=== PATIENT | female | born 1970 | race Caucasian/White ===

== ENCOUNTER 2018-09-03 01:22 | Inpatient (IN) | payer SELFPAY ==
[~2018-09-03] VITALS: Ht 162.6 cm; Wt 63.5 kg
[2018-09-03 02:02] LABS: BASO % 0 % (0-3); EOS % 0 % (0-3); HEMATOCRIT 41.9 % (36.0-47.0); HEMOGLOBIN 14.2 g/dL (12.0-15.5); LYMPH % 11 % (24-48); MEAN CORPUSCULAR HEMOGLOBIN 33 pg (25-35); MEAN CORPUSCULAR HGB CONC 34 g/dL (31-37); MEAN CORPUSCULAR VOLUME 97 fL (79-100); MONO # 0.6 x10^3/uL (0.0-1.1); MONO % 6 % (0-9); NEUT # 7.6 x10^3uL (1.8-7.7); NEUT % 83 % (31-73); PLATELET COUNT 320 x10^3/uL (140-400); RED BLOOD COUNT 4.33 x10^6/uL (3.50-5.40); RED CELL DISTRIBUTION WIDTH 14.1 % (11.5-14.5); WHITE BLOOD COUNT 9.2 x10^3/uL (4.0-11.0)
[2018-09-03 02:04] LABS: BILIRUBIN,URINE NEGATIVE (NEG); CLARITY,URINE CLEAR; COLOR,URINE YELLOW; NITRITE,URINE NEGATIVE (NEG); PH,URINE 5.5; PROTEIN,URINE >=300 mg/dL (NEG-TRACE); UROBILINOGEN,URINE 0.2 mg/dL (0.2 mg/dL)
[2018-09-03 02:10] LABS: BARBITURATES NEG (NEG); BENZODIAZEPINES NEG (NEG); CANNABINOIDS NEG (NEG); COCAINE NEG (NEG); METHADONE NEG (NEG); OPIATES NEG (NEG); PHENCYCLIDINE NEG (NEG)
[2018-09-03 02:21] LABS: AMPHETAMINE/METHAMPHETAMINE NEG (NEG)
[2018-09-03 02:25] LABS: AMORPHOUS SEDIMENT,UR PRESENT /HPF; BACTERIA,URINE FEW /HPF (0-FEW); HYALINE CASTS, URINE FEW /HPF; RBC,URINE OCC /HPF (0-2); SQUAMOUS EPITHELIAL CELL,UR OCC /LPF; WBC,URINE OCC /HPF (0-4)
[2018-09-03] MEDS ORDERED: FAMOTIDINE 20 MG/2 ML VIAL IVP ONE (02:30)
[2018-09-03] MEDS ORDERED: IV NORMAL SALINE 1000ML BAG 1,000 ML IV ONE (02:30)
[2018-09-03] MEDS ORDERED: cloNIDine HCL 0.1 MG TABLET PO PRN (02:30)
[2018-09-03] MEDS ORDERED: ONDANSETRON PF 4 MG/2 ML VIAL. IV ONE (02:30)
[2018-09-03] MEDS ORDERED: ONDANSETRON PF 4 MG/2 ML VIAL. IV PRN ×2 (02:30→08:45)
[2018-09-03 02:34] LABS: ALBUMIN 4.8 g/dL (3.4-5.0); ALBUMIN/GLOBULIN RATIO 0.9 (1.0-1.7); CALCIUM 9.5 mg/dL (8.5-10.1); CREATININE 2.7 mg/dL (0.6-1.0); GFR 18.7; TOTAL BILIRUBIN 0.5 mg/dL (0.2-1.0); TOTAL PROTEIN 9.9 g/dL (6.4-8.2)
--- NOTE | 2018-09-03 02:48 | PHYS DOC ---
Past Medical History Past Medical History: Other Additional Past Medical Histor: etoh abuse. pt poor historian Past Surgical History: Other Additional Past Surgical Histo: unknown Alcohol Use: Heavy Drug Use: None Adult General Chief Complaint Chief Complaint: WITHDRAWL HPI HPI 48-year-old female who is a known heavy alcohol user presents stating she went on an alcohol binge and has stopped now for some period of time. She has been vomiting now for several hours. She's unable to hold anything down. She states this is alcohol withdrawal. She states she has not had a seizure in the past. She denies being diabetic. His using any other illicit drugs.[] Review of Systems Review of Systems Constitutional: Denies fever or chills [] Eyes: Denies change in visual acuity, redness, or eye pain [] HENT: Denies nasal congestion or sore throat [] Respiratory: Denies cough or shortness of breath [] Cardiovascular: No additional information not addressed in HPI [] GI: Reports nausea vomiting and diarrhea[] : Denies dysuria or hematuria [] Musculoskeletal: Denies back pain or joint pain [] Integument: Denies rash or skin lesions [] Neurologic: Denies seizure[] Endocrine: Denies polyuria or polydipsia [] All other systems were reviewed and found to be within normal limits, except as documented in this note. Current Medications Current Medications Current Medications Medications (Trade) Dose Ordered Sig/Jakob Start Time Stop Time Status Last Admin Dose Admin Clonidine HCl (Catapres) 0.1 mg PRN Q1HR PRN 09/03/18 02:30 Famotidine (Pepcid Vial) 40 mg 1X ONCE 09/03/18 02:30 09/03/18 02:31 DC 09/03/18 02:11 40 MG Lorazepam (Ativan) 2 mg PRN Q1HR PRN 09/03/18 02:30 Ondansetron HCl (Zofran) 4 mg PRN Q8HRS PRN 09/03/18 02:30 09/04/18 02:29 Sodium Chloride 1,000 ml @ 1,000 mls/hr 1X ONCE 09/03/18 02:30 09/03/18 03:29 DC 09/03/18 02:12 1,000 MLS/HR Allergies Allergies Allergies Coded Allergies Type Severity Reaction Last Updated Verified No Known Drug Allergies 09/03/18 No Physical Exam Physical Exam Constitutional: Acutely ill in moderate distress. [] HENT: Normocephalic, atraumatic, bilateral external ears normal, oropharynx moist, no oral exudates, nose normal. [] Eyes: PERRLA, EOMI, conjunctiva normal, no discharge. [] Neck: Normal range of motion, no tenderness, supple, no stridor. [] Cardiovascular: Tachycardic[] Lungs & Thorax: Tachypnea With clear breath sounds bilaterally[] Abdomen: Bowel sounds normal, soft, no tenderness, no masses, no pulsatile masses. [] Skin: Diaphoretic. [] Back: No tenderness, no CVA tenderness. [] Extremities: No tenderness, no cyanosis, no clubbing, ROM intact, no edema. [] Neurologic: Confused, normal motor function, normal sensory function, no focal deficits noted. [] Psychologic: Extremely anxious. [] Current Patient Data Vital Signs Vital Signs Date Time Temp Pulse Resp B/P (MAP) Pulse Ox O2 Delivery O2 Flow Rate FiO2 09/03/18 01:22 97.9 109 20 152/89 (110) 100 Room Air 97.9 Lab Values Laboratory Tests Test 09/03/18 01:30 09/03/18 01:40 09/03/18 01:48 Glucose (Fingerstick) 228 mg/dL (70-99) H White Blood Count 9.2 x10^3/uL (4.0-11.0) Red Blood Count 4.33 x10^6/uL (3.50-5.40) Hemoglobin 14.2 g/dL (12.0-15.5) Hematocrit 41.9 % (36.0-47.0) Mean Corpuscular Volume 97 fL (79-100) Mean Corpuscular Hemoglobin 33 pg (25-35) Mean Corpuscular Hemoglobin Concent 34 g/dL (31-37) Red Cell Distribution Width 14.1 % (11.5-14.5) Platelet Count 320 x10^3/uL (140-400) Neutrophils (%) (Auto) 83 % (31-73) H Lymphocytes (%) (Auto) 11 % (24-48) L Monocytes (%) (Auto) 6 % (0-9) Eosinophils (%) (Auto) 0 % (0-3) Basophils (%) (Auto) 0 % (0-3) Neutrophils # (Auto) 7.6 x10^3uL (1.8-7.7) Lymphocytes # (Auto) 1.0 x10^3/uL (1.0-4.8) Monocytes # (Auto) 0.6 x10^3/uL (0.0-1.1) Eosinophils # (Auto) 0.0 x10^3/uL (0.0-0.7) Basophils # (Auto) 0.0 x10^3/uL (0.0-0.2) Urine Collection Type U cath Urine Color Yellow Urine Clarity Clear Urine pH 5.5 Urine Specific [place] 1.025 Urine Protein >=300 mg/dL (NEG-TRACE) Urine Glucose (UA) Negative mg/dL (NEG) Urine Ketones (Stick) >=80 mg/dL (NEG) Urine Blood Trace (NEG) Urine Nitrite Negative (NEG) Urine Bilirubin Negative (NEG) Urine Urobilinogen Dipstick 0.2 mg/dL (0.2 mg/dL) Urine Leukocyte Esterase Negative (NEG) Urine RBC Occ /HPF (0-2) Urine WBC Occ /HPF (0-4) Urine Squamous Epithelial Cells Occ /LPF Urine Amorphous Sediment Present /HPF Urine Bacteria Few /HPF (0-FEW) Urine Hyaline Casts Few /HPF Urine Mucus Mod /LPF Sodium Level 143 mmol/L (136-145) Potassium Level 3.0 mmol/L (3.5-5.1) L Chloride Level 97 mmol/L (98-107) L Carbon Dioxide Level 16 mmol/L (21-32) L Anion Gap 30 (6-14) H Blood Urea Nitrogen 13 mg/dL (7-20) Creatinine 2.7 mg/dL (0.6-1.0) H Estimated GFR (Cockcroft-Gault) 18.7 BUN/Creatinine Ratio 5 (6-20) L Glucose Level 252 mg/dL (70-99) H Calcium Level 9.5 mg/dL (8.5-10.1) Total Bilirubin 0.5 mg/dL (0.2-1.0) Aspartate Amino Transferase (AST) 67 U/L (15-37) H Alanine Aminotransferase (ALT) 81 U/L (14-59) H Alkaline Phosphatase 103 U/L (46-116) Total Protein 9.9 g/dL (6.4-8.2) H Albumin 4.8 g/dL (3.4-5.0) Albumin/Globulin Ratio 0.9 (1.0-1.7) L Lipase 94 U/L (73-393) Urine Opiates Screen Neg (NEG) Urine Methadone Screen Neg (NEG) Urine Barbiturates Neg (NEG) Urine Phencyclidine Screen Neg (NEG) Urine Amphetamine/Methamphetamine Neg (NEG) Urine Benzodiazepines Screen Neg (NEG) Urine Cocaine Screen Neg (NEG) Urine Cannabinoids Screen Neg (NEG) Ethyl Alcohol Level < 10 mg/dL (0-10) Urine Ethyl Alcohol Neg (NEG) POC Urine HCG, Qualitative Hcg negative (Negative) Laboratory Tests 09/03/18 01:40 Laboratory Tests 09/03/18 01:40 EKG EKG [] Radiology/Procedures Radiology/Procedures [] Course & Med Decision Making Course & Med Decision Making Pertinent Labs and Imaging studies reviewed. (See chart for details) [ED course: Evaluation reveals a 48-year-old female that is confused in DTs. She was given a banana bag 1 L IV as well as normal saline 1 L IV and 2 mg of Ativan IV with this did help calm her down. She was also given Zofran for nausea and vomiting. Given the extreme nature of her withdrawal she will need to be hospitalized and watched closely as she recovers from her alcohol withdrawal. Patient also has renal failure and a metabolic acidosis I doubt that this acidosis is related to diabetes certainly could be related to the amount of alcohol that she drank her type of alcohol. Her blood glucose was 250. I will start her on a sliding scale upstairs. I believe that the acidosis were fluid replacement. Again, laboratory studies will be drawn again in a couple of hours.] CRITICAL CARE: Time spent was 35 minutes. This includes medical management, evaluation, reevaluation, discussion with consultants and family. Critical Care does NOT include time spent on separately billed procedures. Dragon Disclaimer Dragon Disclaimer This electronic medical record was generated, in whole or in part, using a voice recognition dictation system. Departure Departure Impression: Primary Impression: DTs (delirium tremens) Additional Impressions: Renal failure Metabolic acidosis Disposition: 09 ADMITTED INPATIENT Admitting Physician: Other (Farela) Condition: GUARDED Referrals: NO PCP (PCP) Problem Qualifiers Additional Impressions: Renal failure Renal failure chronicity: acute Acute renal failure type: unspecified Qualified Codes: N17.9 - Acute kidney failure, unspecified HEDY MANZANO DO Sep 03, 2018 02:48
[2018-09-03] MEDS ORDERED: MULTIVIT INFUSN,ADULT 4,VIT K 10 ML, THIAMINE INJ 100 MG, FOLIC ACID INJ 1 MG in IV NOR... IV ONE (03:00)
[2018-09-03] MEDS ORDERED: DEXTROSE 50% 25 GM / 50ML DISP.SYRIN. IV PRN ×2 (03:45→08:45)
--- NOTE | 2018-09-03 04:00 | NUR ---
ADMISSION NOTE: Patient arrived to room 530 at approximately 0345 accompanied by ED staff. Patient able to transfer self from rney to bed. Removed medications, two lighters, and a tin of tobacco pouches from patient's purse, placed in patient's med bin. Patient complains of thirst, water pitcher provided. Admission questionnaire performed, patient does not remember what strength of meds she takes. Remembers Prozac and Seroquel but states she takes more. Cannot remember what [place] pharmacy location she uses. Will pass along to day RN.
[2018-09-03] MEDS: IV NORMAL SALINE 1000ML BAG 1,000 ML IV SCH ×3 (05:00→20:49)
[2018-09-03 08:00] VITALS: BP 110/66
[2018-09-03] MEDS ORDERED: INSULIN LISPRO 300 UNITS/3 ML INSULN.PEN. SQ SCH (08:00)
[2018-09-03] MEDS ORDERED: ACETAMINOPHEN/CODEINE 300/30MG TABLET. PO PRN (08:45)
[2018-09-03] MEDS ORDERED: chlordiazePOXIDE HCL 25 MG CAPSULE PO PRN (08:45)
[2018-09-03] MEDS ORDERED: ACETAMINOPHEN 500 MG TABLET PO PRN (08:45)
[2018-09-03] MEDS ORDERED: POTASSIUM CHLORIDE 20 MEQ TABLET.ER. PO ONE (09:00)
[2018-09-03] MEDS: THIAMINE 100 MG TABLET. PO SCH (09:17)
[2018-09-03] MEDS: MULTIVITAMIN with MINERAL TABLET. PO SCH (09:17)
[2018-09-03] MEDS: FOLIC ACID 1 MG TABLET. PO SCH (09:17)
[2018-09-03 11:00] VITALS: BP 104/54
[2018-09-03] MEDS: INSULIN LISPRO 300 UNITS/3 ML INSULN.PEN. SQ SCH ×2 (11:22→17:00)
--- NOTE | 2018-09-03 12:00 | PDOC1 ---
History and Physical Date of Admission Date of Admission DATE: 09/03/18 TIME: 11:55 Identification/Chief Complaint Chief Complaint Alcohol intoxication Source Source: Caregiver, Chart review, Patient History of Present Illness History of Present Illness 48-year-old white female, not the best historian as either alcohol intoxicated or trying to withdraw or drowsy from Librium etc. 48-year-old female who is a known heavy alcohol user presents stating she went on an alcohol binge and has stopped now for some period of time. She has been vomiting now for several hours. She's unable to hold anything down. She states this is alcohol withdrawal. She states she has not had a seizure in the past. She denies being diabetic. His using any other illicit drugs.[] She has severe elyte abnormalities namely low potassium 3.0 with elevated anion gap at 30 and a low bicarbonate 16 with hypochloremia 117. AST elevated 67, ALT likewise elevated. Patient still nauseated no vomiting but less interested in food yet. Not ready to DC, to continue alcohol detox here in the hospital. We'll consult social work for AAA referral etoh levels less than 10 Past Medical History Endocrine: Diabetes Past Surgical History Past Surgical History: No pertinent history Family History Family History: Family History Unknown Social History Smoke: No ALCOHOL: heavy Drugs: None Current Problem List Problem List Problems Medical Problems: (1) DTs (delirium tremens) Status: Acute (2) Metabolic acidosis Status: Acute (3) Renal failure Status: Acute Current Medications Current Medications Current Medications Multivitamins 10 ml/Thiamine HCl 100 mg/Folic Acid 1 mg/Sodium Chloride 1,011.2 ml @ 1,000.088 mls/hr 1X ONCE IV Last administered on 09/03/18at 02:25; Start 09/03/18 at 03:00; Stop 09/03/18 at 04:00; Status DC Lorazepam (Ativan) 2 mg 1X ONCE IV Last administered on 09/03/18at 02:11; Start 09/03/18 at 02:30; Stop 09/03/18 at 02:31; Status DC Sodium Chloride 1,000 ml @ 1,000 mls/hr 1X ONCE IV Last administered on at 02:12; Start 09/03/18 at 02:30; Stop 09/03/18 at 03:29; Status DC Famotidine (Pepcid Vial) 40 mg 1X ONCE IVP Last administered on 09/03/18at 02: 11; Start 09/03/18 at 02:30; Stop 09/03/18 at 02:31; Status DC Ondansetron HCl (Zofran) 8 mg 1X ONCE IV Last administered on 09/03/18at 02:11 ; Start 09/03/18 at 02:30; Stop 09/03/18 at 02:31; Status DC Ondansetron HCl (Zofran) 4 mg PRN Q8HRS PRN IV NAUSEA/VOMITING 1ST CHOICE; Start 09/03/18 at 02:30; Stop 09/03/18 at 08:34; Status DC Sodium Chloride 1,000 ml @ 125 mls/hr Q8H IV Last administered on 09/03/18at 11 :28; Start 09/03/18 at 03:00; Stop 09/04/18 at 02:59 Lorazepam (Ativan) 2 mg PRN Q1HR PRN IV For CIWA 8-14 Last administered on 09/03at 09:17; Start 09/03/18 at 02:30 Clonidine HCl (Catapres) 0.1 mg PRN Q1HR PRN PO SBP > 180 or DBP > 100, MRX3; Start 09/03/18 at 02:30 Insulin Human Lispro (HumaLOG) 0-7 UNITS TIDWMEALS SQ ; Start 09/03/18 at 08:00 ; Stop 09/03/18 at 08:34; Status DC Dextrose (Dextrose 50%-Water Syringe) 12.5 gm PRN Q15MIN PRN IV SEE COMMENTS; Start 09/03/18 at 03:45 Ondansetron HCl (Zofran) 4 mg PRN Q6HRS PRN IV NAUSEA/VOMITING 1ST CHOICE; Start 09/03/18 at 08:45 Acetaminophen (Tylenol) 500 mg PRN Q6HRS PRN PO MILD PAIN / TEMP; Start at 08:45 Acetaminophen/ Codeine Phosphate (Tylenol #3) 1 tab PRN Q6HRS PRN PO MODERATE PAIN; Start 09/03/18 at 08:45 Potassium Chloride (Klor-Con) 40 meq 1X ONCE PO Last administered on at 09:17; Start 09/03/18 at 09:00; Stop 09/03/18 at 09:01; Status DC Potassium Chloride (Klor-Con) 40 meq DAILYWBKFT PO ; Start 09/04/18 at 08:00 Insulin Human Lispro (HumaLOG) 0-9 UNITS TIDWMEALS SQ ; Start 09/03/18 at 12:00 Dextrose (Dextrose 50%-Water Syringe) 12.5 gm PRN Q15MIN PRN IV SEE COMMENTS; Start 09/03/18 at 08:45; Status UNV Multivitamins (Thera M Plus) 1 tab DAILY PO Last administered on 09/03/18at 09: 17; Start 09/03/18 at 09:00 Thiamine Mononitrate (Vitamin B-1) 100 mg DAILY PO Last administered on at 09:17; Start 09/03/18 at 09:00 Folic Acid (Folic Acid) 1 mg DAILY PO Last administered on 09/03/18at 09:17; Start 09/03/18 at 09:00 Chlordiazepoxide (Librium) 25 mg PRN Q6HRS PRN PO ANXIETY / AGITATION; Start at 08:45 Allergies Allergies: Coded Allergies: No Known Drug Allergies (Unverified , 09/03/18) ROS Review of System limited, alcohol detox/alcohol withdrawal sxs Physical Exam General: No acute distress, Other (sleepy) HEENT: Atraumatic, PERRLA, EOMI Lungs: Clear to auscultation, Normal air movement Heart: S1S2, RRR, no thrills, no gallops, no murmurs Cardiovascular: S1 Breasts: Normal, Rt breast nml w/o mass, Lt breast nml w/o mass, Nipples normal Abdomen: Normal bowel sounds, Soft, No tenderness, No hepatosplenomegaly, No masses Rectal Exam: not examined PELVIC: Nml ext genitalia Extremities: No clubbing, No cyanosis, No edema, Normal pulses, No tenderness/ swelling Skin: No rashes, No breakdown, No significant lesion Neuro: Normal gait, Normal speech, Strength at 5/5 X4 ext, Normal tone, Sensation intact, Cranial nerves 3-12 NL, Reflexes 2+ Psych/Mental Status: Mental status NL Vitals Vitals Vital Signs Date Time Temp Pulse Resp B/P (MAP) Pulse Ox O2 Delivery O2 Flow Rate FiO2 09/03/18 11:00 98.2 105 17 104/54 (71) 100 98.2 09/03/18 08:00 Room Air Labs Labs Laboratory Tests Test 09/03/18 01:30 09/03/18 01:40 09/03/18 01:48 09/03/18 07:13 Glucose (Fingerstick) 228 mg/dL (70-99) 122 mg/dL (70-99) White Blood Count 9.2 x10^3/uL (4.0-11.0) Red Blood Count 4.33 x10^6/uL (3.50-5.40) Hemoglobin 14.2 g/dL (12.0-15.5) Hematocrit 41.9 % (36.0-47.0) Mean Corpuscular Volume 97 fL (79-100) Mean Corpuscular Hemoglobin 33 pg (25-35) Mean Corpuscular Hemoglobin Concent 34 g/dL (31-37) Red Cell Distribution Width 14.1 % (11.5-14.5) Platelet Count 320 x10^3/uL (140-400) Neutrophils (%) (Auto) 83 % (31-73) Lymphocytes (%) (Auto) 11 % (24-48) Monocytes (%) (Auto) 6 % (0-9) Eosinophils (%) (Auto) 0 % (0-3) Basophils (%) (Auto) 0 % (0-3) Neutrophils # (Auto) 7.6 x10^3uL (1.8-7.7) Lymphocytes # (Auto) 1.0 x10^3/uL (1.0-4.8) Monocytes # (Auto) 0.6 x10^3/uL (0.0-1.1) Eosinophils # (Auto) 0.0 x10^3/uL (0.0-0.7) Basophils # (Auto) 0.0 x10^3/uL (0.0-0.2) Urine Collection Type U cath Urine Color Yellow Urine Clarity Clear Urine pH 5.5 Urine Specific [place] 1.025 Urine Protein >=300 mg/dL (NEG-TRACE) Urine Glucose (UA) Negative mg/dL (NEG) Urine Ketones (Stick) >=80 mg/dL (NEG) Urine Blood Trace (NEG) Urine Nitrite Negative (NEG) Urine Bilirubin Negative (NEG) Urine Urobilinogen Dipstick 0.2 mg/dL (0.2 mg/dL) Urine Leukocyte Esterase Negative (NEG) Urine RBC Occ /HPF (0-2) Urine WBC Occ /HPF (0-4) Urine Squamous Epithelial Cells Occ /LPF Urine Amorphous Sediment Present /HPF Urine Bacteria Few /HPF (0-FEW) Urine Hyaline Casts Few /HPF Urine Mucus Mod /LPF Sodium Level 143 mmol/L (136-145) Potassium Level 3.0 mmol/L (3.5-5.1) Chloride Level 97 mmol/L (98-107) Carbon Dioxide Level 16 mmol/L (21-32) Anion Gap 30 (6-14) Blood Urea Nitrogen 13 mg/dL (7-20) Creatinine 2.7 mg/dL (0.6-1.0) Estimated GFR (Cockcroft-Gault) 18.7 BUN/Creatinine Ratio 5 (6-20) Glucose Level 252 mg/dL (70-99) Calcium Level 9.5 mg/dL (8.5-10.1) Magnesium Level 2.2 mg/dL (1.8-2.4) Total Bilirubin 0.5 mg/dL (0.2-1.0) Aspartate Amino Transf (AST/SGOT) 67 U/L (15-37) Alanine Aminotransferase (ALT/SGPT) 81 U/L (14-59) Alkaline Phosphatase 103 U/L (46-116) Total Protein 9.9 g/dL (6.4-8.2) Albumin 4.8 g/dL (3.4-5.0) Albumin/Globulin Ratio 0.9 (1.0-1.7) Lipase 94 U/L (73-393) Urine Opiates Screen Neg (NEG) Urine Methadone Screen Neg (NEG) Urine Barbiturates Neg (NEG) Urine Phencyclidine Screen Neg (NEG) Urine Amphetamine/Methamphetamine Neg (NEG) Urine Benzodiazepines Screen Neg (NEG) Urine Cocaine Screen Neg (NEG) Urine Cannabinoids Screen Neg (NEG) Ethyl Alcohol Level < 10 mg/dL (0-10) Urine Ethyl Alcohol Neg (NEG) Bedside Urine HCG, Qualitative Hcg negative (Negative) Test 09/03/18 11:12 Glucose (Fingerstick) 110 mg/dL (70-99) Laboratory Tests Test 09/03/18 01:30 09/03/18 01:40 09/03/18 01:48 09/03/18 07:13 Glucose (Fingerstick) 228 mg/dL (70-99) 122 mg/dL (70-99) White Blood Count 9.2 x10^3/uL (4.0-11.0) Red Blood Count 4.33 x10^6/uL (3.50-5.40) Hemoglobin 14.2 g/dL (12.0-15.5) Hematocrit 41.9 % (36.0-47.0) Mean Corpuscular Volume 97 fL (79-100) Mean Corpuscular Hemoglobin 33 pg (25-35) Mean Corpuscular Hemoglobin Concent 34 g/dL (31-37) Red Cell Distribution Width 14.1 % (11.5-14.5) Platelet Count 320 x10^3/uL (140-400) Neutrophils (%) (Auto) 83 % (31-73) Lymphocytes (%) (Auto) 11 % (24-48) Monocytes (%) (Auto) 6 % (0-9) Eosinophils (%) (Auto) 0 % (0-3) Basophils (%) (Auto) 0 % (0-3) Neutrophils # (Auto) 7.6 x10^3uL (1.8-7.7) Lymphocytes # (Auto) 1.0 x10^3/uL (1.0-4.8) Monocytes # (Auto) 0.6 x10^3/uL (0.0-1.1) Eosinophils # (Auto) 0.0 x10^3/uL (0.0-0.7) Basophils # (Auto) 0.0 x10^3/uL (0.0-0.2) Urine Collection Type U cath Urine Color Yellow Urine Clarity Clear Urine pH 5.5 Urine Specific [place] 1.025 Urine Protein >=300 mg/dL (NEG-TRACE) Urine Glucose (UA) Negative mg/dL (NEG) Urine Ketones (Stick) >=80 mg/dL (NEG) Urine Blood Trace (NEG) Urine Nitrite Negative (NEG) Urine Bilirubin Negative (NEG) Urine Urobilinogen Dipstick 0.2 mg/dL (0.2 mg/dL) Urine Leukocyte Esterase Negative (NEG) Urine RBC Occ /HPF (0-2) Urine WBC Occ /HPF (0-4) Urine Squamous Epithelial Cells Occ /LPF Urine Amorphous Sediment Present /HPF Urine Bacteria Few /HPF (0-FEW) Urine Hyaline Casts Few /HPF Urine Mucus Mod /LPF Sodium Level 143 mmol/L (136-145) Potassium Level 3.0 mmol/L (3.5-5.1) Chloride Level 97 mmol/L (98-107) Carbon Dioxide Level 16 mmol/L (21-32) Anion Gap 30 (6-14) Blood Urea Nitrogen 13 mg/dL (7-20) Creatinine 2.7 mg/dL (0.6-1.0) Estimated GFR (Cockcroft-Gault) 18.7 BUN/Creatinine Ratio 5 (6-20) Glucose Level 252 mg/dL (70-99) Calcium Level 9.5 mg/dL (8.5-10.1) Magnesium Level 2.2 mg/dL (1.8-2.4) Total Bilirubin 0.5 mg/dL (0.2-1.0) Aspartate Amino Transf (AST/SGOT) 67 U/L (15-37) Alanine Aminotransferase (ALT/SGPT) 81 U/L (14-59) Alkaline Phosphatase 103 U/L (46-116) Total Protein 9.9 g/dL (6.4-8.2) Albumin 4.8 g/dL (3.4-5.0) Albumin/Globulin Ratio 0.9 (1.0-1.7) Lipase 94 U/L (73-393) Urine Opiates Screen Neg (NEG) Urine Methadone Screen Neg (NEG) Urine Barbiturates Neg (NEG) Urine Phencyclidine Screen Neg (NEG) Urine Amphetamine/Methamphetamine Neg (NEG) Urine Benzodiazepines Screen Neg (NEG) Urine Cocaine Screen Neg (NEG) Urine Cannabinoids Screen Neg (NEG) Ethyl Alcohol Level < 10 mg/dL (0-10) Urine Ethyl Alcohol Neg (NEG) Bedside Urine HCG, Qualitative Hcg negative (Negative) Test 09/03/18 11:12 Glucose (Fingerstick) 110 mg/dL (70-99) VTE Prophylaxis Ordered VTE Prophylaxis Devices: Yes VTE Pharmacological Prophylaxi: Yes Assessment/Plan Assessment/Plan Alcohol withdrawal Hypokalemia Elevated gap anion acidosis secondary to alcoholism Hypokalemia Elevated LFTs and a drinker PLAN: CIWA Watch out for alcohol withdrawal seizures Supportive meds Replace potassium Sliding-scale insulin Fluid hydration and attempt to correct the acidosis-recheck BMP with focus on anion gap, potassium tomorrow HIRA CABALLERO MD Sep 03, 2018 12:00
[2018-09-03 15:00] VITALS: BP 110/63
[2018-09-03 19:00] VITALS: BP 99/60
[2018-09-03 23:00] VITALS: BP 101/64
[2018-09-04 03:00] VITALS: BP 108/70
[2018-09-04 07:00] VITALS: BP 112/73
[2018-09-04] MEDS: INSULIN LISPRO 300 UNITS/3 ML INSULN.PEN. SQ SCH ×3 (08:00→17:00)
[2018-09-04 09:08] LABS: CREATININE 1.2 mg/dL (0.6-1.0); GFR 47.7
[2018-09-04 09:17] LABS: POTASSIUM 2.8 mmol/L (3.5-5.1)
[2018-09-04] MEDS ORDERED: POTASSIUM CHLORIDE 20 MEQ TABLET.ER. PO ONE ×2 (09:30)
[2018-09-04] MEDS: MULTIVITAMIN with MINERAL TABLET. PO SCH (10:05)
[2018-09-04] MEDS: POTASSIUM CHLORIDE 20 MEQ TABLET.ER. PO SCH (10:05)
[2018-09-04] MEDS: THIAMINE 100 MG TABLET. PO SCH (10:05)
[2018-09-04] MEDS: FOLIC ACID 1 MG TABLET. PO SCH (10:06)
[2018-09-04 11:00] VITALS: BP 126/74
--- NOTE | 2018-09-04 11:26 | PDOC ---
PROGRESS NOTES Chief Complaint Chief Complaint Alcohol withdrawal Hypokalemia Elevated gap anion acidosis secondary to alcoholism Hypokalemia Elevated LFTs and a drinker History of Present Illness History of Present Illness Called by RN for critical potassium 2.8 today Still not dc ready, gait very unsteady or at least RN has not seen her ambulate about yet So-so by mouth intake STill sleepy PLAN: Back down on CIWA protocol Add some PTOT Replace potassium 601 and recheck again later or tomorrow Cannot DC yet today pending above Vitals Vitals Vital Signs Date Time Temp Pulse Resp B/P (MAP) Pulse Ox O2 Delivery O2 Flow Rate FiO2 09/04/18 07:00 98.7 88 16 112/73 (86) 95 Room Air 98.7 Physical Exam General: No acute distress, Other (sleepy) Heart: Regular rate, Normal S1, Normal S2 Lungs: Clear Abdomen: Normal bowel sounds, Soft, No tenderness, No hepatosplenomegaly, No masses Extremities: No clubbing, No cyanosis, No edema, Normal pulses, No tenderness/ swelling Skin: No rashes, No breakdown, No significant lesion Labs LABS Laboratory Tests Test 09/03/18 16:33 09/03/18 20:38 09/04/18 07:30 09/04/18 08:08 Glucose (Fingerstick) 130 mg/dL (70-99) 179 mg/dL (70-99) 109 mg/dL (70-99) Sodium Level 140 mmol/L (136-145) Potassium Level 2.8 mmol/L (3.5-5.1) Chloride Level 105 mmol/L (98-107) Carbon Dioxide Level 27 mmol/L (21-32) Anion Gap 8 (6-14) Blood Urea Nitrogen 2 mg/dL (7-20) Creatinine 1.2 mg/dL (0.6-1.0) Estimated GFR (Cockcroft-Gault) 47.7 Glucose Level 99 mg/dL (70-99) Calcium Level 8.0 mg/dL (8.5-10.1) Review of Systems Review of Systems Sleepy hence limited ROS Assessment and Plan Assessmemt and Plan Problems Medical Problems: (1) DTs (delirium tremens) Status: Acute (2) Metabolic acidosis Status: Acute (3) Renal failure Status: Acute Comment Review of Relevant I have reviewed the following items siva (where applicable) has been applied. Labs Laboratory Tests Test 09/03/18 01:30 09/03/18 01:40 09/03/18 01:48 09/03/18 07:13 Glucose (Fingerstick) 228 mg/dL (70-99) 122 mg/dL (70-99) White Blood Count 9.2 x10^3/uL (4.0-11.0) Red Blood Count 4.33 x10^6/uL (3.50-5.40) Hemoglobin 14.2 g/dL (12.0-15.5) Hematocrit 41.9 % (36.0-47.0) Mean Corpuscular Volume 97 fL (79-100) Mean Corpuscular Hemoglobin 33 pg (25-35) Mean Corpuscular Hemoglobin Concent 34 g/dL (31-37) Red Cell Distribution Width 14.1 % (11.5-14.5) Platelet Count 320 x10^3/uL (140-400) Neutrophils (%) (Auto) 83 % (31-73) Lymphocytes (%) (Auto) 11 % (24-48) Monocytes (%) (Auto) 6 % (0-9) Eosinophils (%) (Auto) 0 % (0-3) Basophils (%) (Auto) 0 % (0-3) Neutrophils # (Auto) 7.6 x10^3uL (1.8-7.7) Lymphocytes # (Auto) 1.0 x10^3/uL (1.0-4.8) Monocytes # (Auto) 0.6 x10^3/uL (0.0-1.1) Eosinophils # (Auto) 0.0 x10^3/uL (0.0-0.7) Basophils # (Auto) 0.0 x10^3/uL (0.0-0.2) Urine Collection Type U cath Urine Color Yellow Urine Clarity Clear Urine pH 5.5 Urine Specific [place] 1.025 Urine Protein >=300 mg/dL (NEG-TRACE) Urine Glucose (UA) Negative mg/dL (NEG) Urine Ketones (Stick) >=80 mg/dL (NEG) Urine Blood Trace (NEG) Urine Nitrite Negative (NEG) Urine Bilirubin Negative (NEG) Urine Urobilinogen Dipstick 0.2 mg/dL (0.2 mg/dL) Urine Leukocyte Esterase Negative (NEG) Urine RBC Occ /HPF (0-2) Urine WBC Occ /HPF (0-4) Urine Squamous Epithelial Cells Occ /LPF Urine Amorphous Sediment Present /HPF Urine Bacteria Few /HPF (0-FEW) Urine Hyaline Casts Few /HPF Urine Mucus Mod /LPF Sodium Level 143 mmol/L (136-145) Potassium Level 3.0 mmol/L (3.5-5.1) Chloride Level 97 mmol/L (98-107) Carbon Dioxide Level 16 mmol/L (21-32) Anion Gap 30 (6-14) Blood Urea Nitrogen 13 mg/dL (7-20) Creatinine 2.7 mg/dL (0.6-1.0) Estimated GFR (Cockcroft-Gault) 18.7 BUN/Creatinine Ratio 5 (6-20) Glucose Level 252 mg/dL (70-99) Calcium Level 9.5 mg/dL (8.5-10.1) Magnesium Level 2.2 mg/dL (1.8-2.4) Total Bilirubin 0.5 mg/dL (0.2-1.0) Aspartate Amino Transf (AST/SGOT) 67 U/L (15-37) Alanine Aminotransferase (ALT/SGPT) 81 U/L (14-59) Alkaline Phosphatase 103 U/L (46-116) Total Protein 9.9 g/dL (6.4-8.2) Albumin 4.8 g/dL (3.4-5.0) Albumin/Globulin Ratio 0.9 (1.0-1.7) Lipase 94 U/L (73-393) Urine Opiates Screen Neg (NEG) Urine Methadone Screen Neg (NEG) Urine Barbiturates Neg (NEG) Urine Phencyclidine Screen Neg (NEG) Urine Amphetamine/Methamphetamine Neg (NEG) Urine Benzodiazepines Screen Neg (NEG) Urine Cocaine Screen Neg (NEG) Urine Cannabinoids Screen Neg (NEG) Ethyl Alcohol Level < 10 mg/dL (0-10) Urine Ethyl Alcohol Neg (NEG) Bedside Urine HCG, Qualitative Hcg negative (Negative) Test 09/03/18 11:12 09/03/18 16:33 09/03/18 20:38 09/04/18 07:30 Glucose (Fingerstick) 110 mg/dL (70-99) 130 mg/dL (70-99) 179 mg/dL (70-99) 109 mg/dL (70-99) Test 09/04/18 08:08 Sodium Level 140 mmol/L (136-145) Potassium Level 2.8 mmol/L (3.5-5.1) Chloride Level 105 mmol/L (98-107) Carbon Dioxide Level 27 mmol/L (21-32) Anion Gap 8 (6-14) Blood Urea Nitrogen 2 mg/dL (7-20) Creatinine 1.2 mg/dL (0.6-1.0) Estimated GFR (Cockcroft-Gault) 47.7 Glucose Level 99 mg/dL (70-99) Calcium Level 8.0 mg/dL (8.5-10.1) Laboratory Tests Test 09/03/18 16:33 09/03/18 20:38 09/04/18 07:30 09/04/18 08:08 Glucose (Fingerstick) 130 mg/dL (70-99) 179 mg/dL (70-99) 109 mg/dL (70-99) Sodium Level 140 mmol/L (136-145) Potassium Level 2.8 mmol/L (3.5-5.1) Chloride Level 105 mmol/L (98-107) Carbon Dioxide Level 27 mmol/L (21-32) Anion Gap 8 (6-14) Blood Urea Nitrogen 2 mg/dL (7-20) Creatinine 1.2 mg/dL (0.6-1.0) Estimated GFR (Cockcroft-Gault) 47.7 Glucose Level 99 mg/dL (70-99) Calcium Level 8.0 mg/dL (8.5-10.1) Medications Current Medications Multivitamins 10 ml/Thiamine HCl 100 mg/Folic Acid 1 mg/Sodium Chloride 1,011.2 ml @ 1,000.088 mls/hr 1X ONCE IV Last administered on 09/03/18at 02:25; Start 09/03/18 at 03:00; Stop 09/03/18 at 04:00; Status DC Lorazepam (Ativan) 2 mg 1X ONCE IV Last administered on 09/03/18at 02:11; Start 09/03/18 at 02:30; Stop 09/03/18 at 02:31; Status DC Sodium Chloride 1,000 ml @ 1,000 mls/hr 1X ONCE IV Last administered on at 02:12; Start 09/03/18 at 02:30; Stop 09/03/18 at 03:29; Status DC Famotidine (Pepcid Vial) 40 mg 1X ONCE IVP Last administered on 09/03/18at 02: 11; Start 09/03/18 at 02:30; Stop 09/03/18 at 02:31; Status DC Ondansetron HCl (Zofran) 8 mg 1X ONCE IV Last administered on 09/03/18at 02:11 ; Start 09/03/18 at 02:30; Stop 09/03/18 at 02:31; Status DC Ondansetron HCl (Zofran) 4 mg PRN Q8HRS PRN IV NAUSEA/VOMITING 1ST CHOICE; Start 09/03/18 at 02:30; Stop 09/03/18 at 08:34; Status DC Sodium Chloride 1,000 ml @ 125 mls/hr Q8H IV Last administered on 09/03/18at 20 :49; Start 09/03/18 at 03:00; Stop 09/04/18 at 02:59; Status DC Lorazepam (Ativan) 2 mg PRN Q1HR PRN IV For CIWA 8-14 Last administered on 09/04at 08:30; Start 09/03/18 at 02:30 Clonidine HCl (Catapres) 0.1 mg PRN Q1HR PRN PO SBP > 180 or DBP > 100, MRX3; Start 09/03/18 at 02:30 Insulin Human Lispro (HumaLOG) 0-7 UNITS TIDWMEALS SQ ; Start 09/03/18 at 08:00 ; Stop 09/03/18 at 08:34; Status DC Dextrose (Dextrose 50%-Water Syringe) 12.5 gm PRN Q15MIN PRN IV SEE COMMENTS; Start 09/03/18 at 03:45 Ondansetron HCl (Zofran) 4 mg PRN Q6HRS PRN IV NAUSEA/VOMITING 1ST CHOICE Last administered on 09/04/18at 11:19; Start 09/03/18 at 08:45 Acetaminophen (Tylenol) 500 mg PRN Q6HRS PRN PO MILD PAIN / TEMP; Start at 08:45 Acetaminophen/ Codeine Phosphate (Tylenol #3) 1 tab PRN Q6HRS PRN PO MODERATE PAIN; Start 09/03/18 at 08:45 Potassium Chloride (Klor-Con) 40 meq 1X ONCE PO Last administered on 09:17; Start 09/03/18 at 09:00; Stop 09/03/18 at 09:01; Status DC Potassium Chloride (Klor-Con) 40 meq DAILYWBKFT PO Last administered on at 10:05; Start 09/04/18 at 08:00 Insulin Human Lispro (HumaLOG) 0-9 UNITS TIDWMEALS SQ ; Start 09/03/18 at 12:00 Dextrose (Dextrose 50%-Water Syringe) 12.5 gm PRN Q15MIN PRN IV SEE COMMENTS; Start 09/03/18 at 08:45; Status UNV Multivitamins (Thera M Plus) 1 tab DAILY PO Last administered on 09/04/18at 10: 05; Start 09/03/18 at 09:00 Thiamine Mononitrate (Vitamin B-1) 100 mg DAILY PO Last administered on at 10:05; Start 09/03/18 at 09:00 Folic Acid (Folic Acid) 1 mg DAILY PO Last administered on 09/04/18at 10:06; Start 09/03/18 at 09:00 Chlordiazepoxide (Librium) 25 mg PRN Q6HRS PRN PO ANXIETY / AGITATION; Start at 08:45 Potassium Chloride (Klor-Con) 20 meq 1X ONCE PO Last administered on at 10:05; Start 09/04/18 at 09:30; Stop 09/04/18 at 09:35; Status DC Potassium Chloride (Klor-Con) 40 meq 1X ONCE PO Last administered on at 10:07; Start 09/04/18 at 09:30; Stop 09/04/18 at 09:35; Status DC Vitals/I & O Vital Sign - Last 24 Hours 09/03/18 09/03/18 09/03/18 09/03/18 15:00 19:00 20:00 23:00 Temp 98.1 98.3 98.3 98.1 98.3 98.3 Pulse 90 89 92 Resp 18 18 18 B/P (MAP) 110/63 (79) 99/60 (73) 101/64 (76) Pulse Ox 98 93 95 O2 Delivery Room Air Room Air Room Air 09/04/18 09/04/18 03:00 07:00 Temp 98.3 98.7 98.3 98.7 Pulse 80 88 Resp 18 16 B/P (MAP) 108/70 (83) 112/73 (86) Pulse Ox 96 95 O2 Delivery Room Air Room Air Intake and Output 09/03/18 09/03/18 09/04/18 15:00 23:00 07:00 Intake Total 200 ml 180 ml Balance 200 ml 180 ml HIRA CABALLERO MD Sep 04, 2018 11:26
[2018-09-04 15:00] VITALS: BP 123/76
[2018-09-04 19:00] VITALS: BP 122/72
[2018-09-04] MEDS ORDERED: ZOLPIDEM 5 MG TABLET. PO PRN (21:30)
[2018-09-04] MEDS ORDERED: NICOTINE 21MG PATCH. TD PRN (21:30)
[2018-09-04 23:00] VITALS: BP 125/79
[2018-09-05 02:50] VITALS: BP 118/75
[2018-09-05 07:00] VITALS: BP 125/85
[2018-09-05] MEDS: INSULIN LISPRO 300 UNITS/3 ML INSULN.PEN. SQ SCH ×2 (08:00→12:00)
[2018-09-05] MEDS: POTASSIUM CHLORIDE 20 MEQ TABLET.ER. PO SCH (08:00)
[2018-09-05] MEDS: MULTIVITAMIN with MINERAL TABLET. PO SCH (09:00)
[2018-09-05] MEDS: THIAMINE 100 MG TABLET. PO SCH (09:00)
[2018-09-05] MEDS: FOLIC ACID 1 MG TABLET. PO SCH (09:00)
--- NOTE | 2018-09-05 10:54 | PDOC3 ---
Discharge Summary Visit Information Date of Admission: Sep 03, 2018 Date of Discharge: Sep 05, 2018 Admitting Diagnosis Comment: Alcohol withdrawal Hypokalemia Elevated gap anion acidosis secondary to alcoholism Hypokalemia Elevated LFTs and a drinker Final Diagnosis Problems Medical Problems: (1) DTs (delirium tremens) Status: Acute (2) Metabolic acidosis Status: Acute (3) Renal failure Status: Acute Brief Hospital Course Allergies Allergies Coded Allergies Type Severity Reaction Last Updated Verified No Known Drug Allergies 09/03/18 No Vital Signs Vital Signs Date Time Temp Pulse Resp B/P (MAP) Pulse Ox O2 Delivery O2 Flow Rate FiO2 09/05/18 07:00 98.4 75 10 125/85 (98) 96 Room Air 98.4 Lab Results Laboratory Tests Test 09/03/18 11:12 09/03/18 16:33 09/03/18 20:38 09/04/18 07:30 Glucose (Fingerstick) 110 mg/dL (70-99) 130 mg/dL (70-99) 179 mg/dL (70-99) 109 mg/dL (70-99) Test 09/04/18 08:08 09/04/18 11:26 09/04/18 13:10 09/04/18 16:56 Sodium Level 140 mmol/L (136-145) Potassium Level 2.8 mmol/L (3.5-5.1) 4.1 mmol/L (3.5-5.1) Chloride Level 105 mmol/L (98-107) Carbon Dioxide Level 27 mmol/L (21-32) Anion Gap 8 (6-14) Blood Urea Nitrogen 2 mg/dL (7-20) Creatinine 1.2 mg/dL (0.6-1.0) Estimated GFR (Cockcroft-Gault) 47.7 Glucose Level 99 mg/dL (70-99) Calcium Level 8.0 mg/dL (8.5-10.1) Glucose (Fingerstick) 111 mg/dL (70-99) 87 mg/dL (70-99) Test 09/04/18 20:37 09/05/18 07:38 Glucose (Fingerstick) 125 mg/dL (70-99) 99 mg/dL (70-99) Laboratory Tests Test 09/04/18 11:26 09/04/18 13:10 09/04/18 16:56 09/04/18 20:37 Glucose (Fingerstick) 111 mg/dL (70-99) 87 mg/dL (70-99) 125 mg/dL (70-99) Potassium Level 4.1 mmol/L (3.5-5.1) Test 09/05/18 07:38 Glucose (Fingerstick) 99 mg/dL (70-99) Brief Hospital Course Ms. Mena is a 48 old white F admitted for etoh withdrawal symptoms. She started to go sober. Her alcohol levels were 0. Took 2 days for me before she could be safely discharged with gait steady and not confused any more. I did Rx Librium. She requested for 2 works slips as she has 2 jobs. She stayed 2 midnights here. No consults performed No procedures performed dc < 30- mins Discharge Information Condition at Discharge: Improved, Stable Follow Up: Weeks (aaa pgm) Disposition/Orders: D/C to Home HIRA CABALLERO MD Sep 05, 2018 10:54
[2018-09-05] MEDS ORDERED: CHLO1CAP PO (10:55)
[2018-09-05 11:00] VITALS: BP 137/85
--- NOTE | 2018-09-05 15:28 | NUR ---
Discharge Note: HEATHER KEENE Discharge instructions and discharge home medications reviewed with Patient and a copy given. All questions have been answered and understanding verbalized. The following instructions and handouts were given: Discontinued lines and drains: Right PIV removed, Catheter Intact Patient discharged to Home or Self Care with Self via Wheelchair
[2018-09-21] MEDS ORDERED: QUET100T PO (13:11)
== END 2018-09-05 13:45 | disposition home or self-care (01) | DRG 683 ==
LOC: ER 01:22 → 5 NORTH 02:30
PROVIDERS: ADMIT Internal Medicine; ATTEND Internal Medicine
DX: N17.9 Acute kidney failure, unspecified (principal); F10.231 Alcohol dependence with withdrawal delirium; E87.2 Acidosis; E87.6 Hypokalemia; E11.9 Type 2 diabetes mellitus without complications; E87.8 Other disorders of electrolyte and fluid balance, not elsewhere classified; Y90.0 Blood alcohol level of less than 20 mg/100 ml
CPT/HCPCS: 36415; 80048; 80053; 80307; 81001; 81025; 82962; 83690; 83735; 84132; 85025; 96365; 96366; 96375; 99291; G0480; J1815; J2060; J2405; J3490; J7030

== ENCOUNTER 2018-09-07 06:01 | Inpatient (IN) | payer SELFPAY ==
[~2018-09-07] VITALS: Ht 162.6 cm; Wt 62.7 kg
[~2018-09-07 06:01] MED LIST: CHLO1CAP PO
[2018-09-07 06:32] LABS: BASO # 0.1 x10^3/uL (0.0-0.2); BASO % 1 % (0-3); EOS # 0.1 x10^3/uL (0.0-0.7); EOS % 1 % (0-3); HEMOGLOBIN 16.6 g/dL (12.0-15.5); LYMPH # 4.3 x10^3/uL (1.0-4.8); LYMPH % 41 % (24-48); MEAN CORPUSCULAR HEMOGLOBIN 33 pg (25-35); MEAN CORPUSCULAR HGB CONC 35 g/dL (31-37); MEAN CORPUSCULAR VOLUME 96 fL (79-100); MONO # 0.8 x10^3/uL (0.0-1.1); MONO % 7 % (0-9); NEUT # 5.4 x10^3uL (1.8-7.7); NEUT % 51 % (31-73); PLATELET COUNT 278 x10^3/uL (140-400); RED CELL DISTRIBUTION WIDTH 13.9 % (11.5-14.5); WHITE BLOOD COUNT 10.5 x10^3/uL (4.0-11.0)
--- NOTE | 2018-09-07 06:34 | PHYS DOC ---
Past Medical History Past Medical History: Other Additional Past Medical Histor: etoh abuse. pt poor historian Past Surgical History: Other Additional Past Surgical Histo: unknown Alcohol Use: Heavy Drug Use: None Adult General Chief Complaint Chief Complaint: ALCOHOL INTOXICATION HPI HPI Patient is a 48 year old female who brought in by EMS because of alcohol abuse. Patient states she cannot stop drinking alcohol and had unknown amount of vodka today. Patient denies suicidal and homicidal ideation and states she had AA follow-up and treatment previously. Patient denies suicidal and homicidal ideation. Patient had 1 episode of vomiting at arrival to ER. Review of Systems Review of Systems Constitutional: Denies fever or chills [] Eyes: Denies change in visual acuity, redness, or eye pain [] HENT: Denies nasal congestion or sore throat [] Respiratory: Denies cough or shortness of breath [] Cardiovascular: No additional information not addressed in HPI [] GI: Denies abdominal pain, nausea, vomiting, bloody stools or diarrhea [] : Denies dysuria or hematuria [] Musculoskeletal: Denies back pain or joint pain [] Integument: Denies rash or skin lesions [] Neurologic: Denies headache, focal weakness or sensory changes [] Endocrine: Denies polyuria or polydipsia [] All other systems were reviewed and found to be within normal limits, except as documented in this note. Current Medications Current Medications Current Medications Medications (Trade) Dose Ordered Sig/Jakob Start Time Stop Time Status Last Admin Dose Admin Lorazepam (Ativan) 1 mg 1X ONCE 09/07/18 10:30 09/07/18 10:31 DC 09/07/18 10:40 1 MG Multivitamins 10 ml/Thiamine HCl 100 mg/Folic Acid 1 mg/Sodium Chloride 1,011.2 ml @ 1,000.088 mls/hr 1X ONCE 09/07/18 09:15 09/07/18 10:15 DC 09/07/18 09:49 1,000.088 MLS/HR Ondansetron HCl (Zofran Odt) 8 mg 1X ONCE 09/07/18 07:00 09/07/18 07:01 DC 09/07/18 06:52 8 MG Ondansetron HCl (Zofran) 4 mg 1X ONCE 09/07/18 07:00 09/07/18 07:01 DC Potassium Chloride (Klor-Con) 40 meq 1X ONCE 09/07/18 10:30 09/07/18 10:31 DC 09/07/18 10:39 40 MEQ Sodium Chloride 1,000 ml @ 1,000 mls/hr 1X ONCE 09/07/18 10:30 09/07/18 11:29 DC 09/07/18 10:33 1,000 MLS/HR Allergies Allergies Allergies Coded Allergies Type Severity Reaction Last Updated Verified No Known Drug Allergies 09/03/18 No Physical Exam Physical Exam Constitutional: Well nourished, mild distress, non-toxic appearance, strong smell of alcohol abuse, intoxication.. [] HENT: Normocephalic, atraumatic, oropharynx moist, good gag reflex. Eyes: PERRLA, EOMI, conjunctiva normal, no discharge. [] Neck: Normal range of motion, no tenderness, supple, no stridor. [] Cardiovascular: Tachycardia, no murmur [] Lungs & Thorax: Bilateral breath sounds clear to auscultation [] Abdomen: Bowel sounds normal, soft, no tenderness, no masses, no pulsatile masses. [] Skin: Warm, dry, no erythema, no rash. [] Back: No tenderness, no CVA tenderness. [] Extremities: No tenderness, no cyanosis, no clubbing, ROM intact, no edema. [] Neurologic: Alert and oriented X 3, normal motor function, normal sensory function, no focal deficits noted. [] Psychologic: Affect anxious, mood normal. [] Current Patient Data Vital Signs Vital Signs Date Time Temp Pulse Resp B/P (MAP) Pulse Ox O2 Delivery O2 Flow Rate FiO2 09/07/18 10:12 100 15 100/58 (72) 09/07/18 08:12 100 Room Air 09/07/18 06:10 97.6 97.6 Lab Values Laboratory Tests Test 09/07/18 06:21 09/07/18 06:45 09/07/18 07:38 09/07/18 09:35 White Blood Count 10.5 x10^3/uL (4.0-11.0) Red Blood Count 5.00 x10^6/uL (3.50-5.40) Hemoglobin 16.6 g/dL (12.0-15.5) H Hematocrit 48.0 % (36.0-47.0) H Mean Corpuscular Volume 96 fL (79-100) Mean Corpuscular Hemoglobin 33 pg (25-35) Mean Corpuscular Hemoglobin Concent 35 g/dL (31-37) Red Cell Distribution Width 13.9 % (11.5-14.5) Platelet Count 278 x10^3/uL (140-400) Neutrophils (%) (Auto) 51 % (31-73) Lymphocytes (%) (Auto) 41 % (24-48) Monocytes (%) (Auto) 7 % (0-9) Eosinophils (%) (Auto) 1 % (0-3) Basophils (%) (Auto) 1 % (0-3) Neutrophils # (Auto) 5.4 x10^3uL (1.8-7.7) Lymphocytes # (Auto) 4.3 x10^3/uL (1.0-4.8) Monocytes # (Auto) 0.8 x10^3/uL (0.0-1.1) Eosinophils # (Auto) 0.1 x10^3/uL (0.0-0.7) Basophils # (Auto) 0.1 x10^3/uL (0.0-0.2) Glucose (Fingerstick) 139 mg/dL (70-99) H Urine Opiates Screen Neg (NEG) Urine Methadone Screen Neg (NEG) Urine Barbiturates Neg (NEG) Urine Phencyclidine Screen Neg (NEG) Urine Amphetamine/Methamphetamine Neg (NEG) Urine Benzodiazepines Screen Pos (NEG) Urine Cocaine Screen Neg (NEG) Urine Cannabinoids Screen Neg (NEG) Urine Ethyl Alcohol Neg (NEG) Magnesium Level 1.8 mg/dL (1.8-2.4) Lipase 105 U/L (73-393) Test 09/07/18 09:45 Sodium Level 135 mmol/L (136-145) L Potassium Level 2.8 mmol/L (3.5-5.1) *L Chloride Level 95 mmol/L (98-107) L Carbon Dioxide Level 26 mmol/L (21-32) Anion Gap 14 (6-14) Blood Urea Nitrogen 12 mg/dL (7-20) Creatinine 2.2 mg/dL (0.6-1.0) H Estimated GFR (Cockcroft-Gault) 23.7 BUN/Creatinine Ratio 5 (6-20) L Glucose Level 113 mg/dL (70-99) H Calcium Level 9.8 mg/dL (8.5-10.1) Total Bilirubin 0.5 mg/dL (0.2-1.0) Aspartate Amino Transferase (AST) 53 U/L (15-37) H Alanine Aminotransferase (ALT) 60 U/L (14-59) H Alkaline Phosphatase 79 U/L (46-116) Total Protein 8.9 g/dL (6.4-8.2) H Albumin 4.2 g/dL (3.4-5.0) Albumin/Globulin Ratio 0.9 (1.0-1.7) L Ethyl Alcohol Level < 10 mg/dL (0-10) Laboratory Tests 09/07/18 06:21 Laboratory Tests 09/07/18 09:45 EKG EKG [] Radiology/Procedures Radiology/Procedures [] Course & Med Decision Making Course & Med Decision Making Pertinent Labs reviewed. (See chart for details) Evaluation of patient in ER showed 48-year-old female patient with history of alcohol abuse and frequent different from emergency room visit recently brought in by EMS because of alcohol intoxication. Patient was very hard stick and does not have IV access but tolerated oral intake after had sublingual Zofran and did not have vomiting in ER. Patient gradually complaining of symptom of DT with light shaking. IV line was started and labs showed alcohol of less than 10 and patient treated with Ativan and IV fluid and banana bag with improvement of her condition. Patient had carotid of 2.2. Patient tolerated oral potassium. Patient denies suicidal or homicidal ideation. Plan to admit patient with diagnosis of alcohol withdrawal and hypokalemia and dehydration. Patient requiring admission for further evaluation and treatment. Discussed with Dr. Lau who is in agreement with admission. Discussed findings and plan with patient and family, who acknowledge understanding and agreement. Dragon Disclaimer Dragon Disclaimer This electronic medical record was generated, in whole or in part, using a voice recognition dictation system. Departure Departure Impression: Primary Impression: Hypokalemia Additional Impressions: Delirium tremens Renal insufficiency Alcoholism Disposition: ADMITTED INPATIENT (@1057) Admitting Physician: Other (Dr. Lau accepted admission at 1054) Condition: IMPROVED Referrals: NO PCP (PCP) Problem Qualifiers BANDAR KING MD Sep 07, 2018 06:34
[2018-09-07] MEDS ORDERED: MULTIVIT INFUSN,ADULT 4,VIT K 10 ML, THIAMINE INJ 100 MG, FOLIC ACID INJ 1 MG in IV NOR... IV SCH (07:00)
[2018-09-07] MEDS ORDERED: ONDANSETRON PF 4 MG/2 ML VIAL. IV ONE (07:00)
[2018-09-07] MEDS ORDERED: ONDANSETRON ODT 4 MG TAB.RAPDIS. PO ONE (07:00)
[2018-09-07] MEDS ORDERED: IV NORMAL SALINE 1000ML BAG 1,000 ML IV SCH (07:00)
[2018-09-07] MEDS ORDERED: MULTIVIT INFUSN,ADULT 4,VIT K 10 ML, THIAMINE INJ 100 MG, FOLIC ACID INJ 1 MG in IV NOR... IV ONE (09:15)
[2018-09-07 10:00] LABS: AMPHETAMINE/METHAMPHETAMINE NEG (NEG); BARBITURATES NEG (NEG); BENZODIAZEPINES POS (NEG); CANNABINOIDS NEG (NEG); COCAINE NEG (NEG); METHADONE NEG (NEG); OPIATES NEG (NEG); PHENCYCLIDINE NEG (NEG)
[2018-09-07 10:23] LABS: ALBUMIN 4.2 g/dL (3.4-5.0); ALBUMIN/GLOBULIN RATIO 0.9 (1.0-1.7); CALCIUM 9.8 mg/dL (8.5-10.1); CREATININE 2.2 mg/dL (0.6-1.0); GFR 23.7; TOTAL BILIRUBIN 0.5 mg/dL (0.2-1.0); TOTAL PROTEIN 8.9 g/dL (6.4-8.2)
[2018-09-07 10:25] LABS: POTASSIUM 2.8 mmol/L (3.5-5.1)
[2018-09-07] MEDS ORDERED: POTASSIUM CHLORIDE 20 MEQ TABLET.ER. PO ONE (10:30)
[2018-09-07] MEDS ORDERED: IV NORMAL SALINE 1000ML BAG 1,000 ML IV ONE ×2 (10:30)
--- NOTE | 2018-09-07 11:00 | PDOC1 ---
History and Physical Date of Admission Date of Admission DATE: 09/07/18 TIME: 10:56 Identification/Chief Complaint Chief Complaint Alcohol withdrawal Source Source: Chart review, Patient History of Present Illness History of Present Illness 48-year-old female who is a known heavy alcohol user presents stating she went on an alcohol binge and has stopped, but is in withdrawal. She has been vomiting now for several hours. She's unable to hold anything down. She states this is alcohol withdrawal. She states she has not had a seizure in the past. She denies being diabetic. His using any other illicit drugs. She has severe elyte abnormalities namely low potassium 2.8 and cr of 2.2, was 1.2 more than 2 days ago. AST, ALT likewise elevated. Patient still nauseated no vomiting but less interested in food yet. Not ready to DC, to continue alcohol detox here in the hospital. etoh levels less than 10, was just admitted and discharged for the same over the weekend Past Medical History Cardiovascular: No pertinent hx Pulmonary: No pertinent hx GI: No pertinent hx Heme/Onc: No pertinent hx Hepatobiliary: No pertinent hx Psych: Anxiety, Addictions Rheumatologic: No pertinent hx Infectious disease: No pertinent hx ENT: No pertinent hx Renal/: No pertinent hx Endocrine: No pertinent hx Dermatology: No pertinent hx Social History Smoke: <1 pack per day ALCOHOL: heavy Drugs: None Current Problem List Problem List Problems Medical Problems: (1) Alcoholism Status: Acute (2) Delirium tremens Status: Acute (3) Hypokalemia Status: Acute (4) Renal insufficiency Status: Acute Current Medications Current Medications Current Medications Sodium Chloride 1,000 ml @ 1,000 mls/hr Q1H IV ; Start 09/07/18 at 07:00; Stop 09/07/18 at 07:00; Status DC Ondansetron HCl (Zofran) 4 mg 1X ONCE IV ; Start 09/07/18 at 07:00; Stop at 07:01; Status DC Multivitamins 10 ml/Thiamine HCl 100 mg/Folic Acid 1 mg/Sodium Chloride 1,011.2 ml @ 1,000 mls/ hr Q1H IV ; Start 09/07/18 at 07:00; Stop 09/07/18 at 07:00; Status DC Ondansetron HCl (Zofran Odt) 8 mg 1X ONCE PO Last administered on 09/07/18at 06 :52; Start 09/07/18 at 07:00; Stop 09/07/18 at 07:01; Status DC Multivitamins 10 ml/Thiamine HCl 100 mg/Folic Acid 1 mg/Sodium Chloride 1,011.2 ml @ 1,000.088 mls/hr 1X ONCE IV Last administered on 09/07/18at 09:49; Start 09/07/18 at 09:15; Stop 09/07/18 at 10:15; Status DC Lorazepam (Ativan) 1 mg 1X ONCE IV Last administered on 09/07/18at 10:40; Start 09/07/18 at 10:30; Stop 09/07/18 at 10:31; Status DC Potassium Chloride (Klor-Con) 40 meq 1X ONCE PO Last administered on at 10:39; Start 09/07/18 at 10:30; Stop 09/07/18 at 10:31; Status DC Sodium Chloride 1,000 ml @ 1,000 mls/hr 1X ONCE IV ; Start 09/07/18 at 10:30; Stop 09/07/18 at 11:29 Sodium Chloride 1,000 ml @ 1,000 mls/hr 1X ONCE IV Last administered on at 10:33; Start 09/07/18 at 10:30; Stop 09/07/18 at 11:29 Active Scripts Active Librax Capsule (Chlordiazepoxide/Clidinium Br) 1 Each Capsule 1 Cap PO TID Allergies Allergies: Coded Allergies: No Known Drug Allergies (Unverified , 09/03/18) ROS General: YES: Fatigue, Malaise; No: Chills, Night Sweats, Appetite, Other PSYCHOLOGICAL ROS: YES: Anxiety, Behavioral Disorder, Depression; No: Concentration difficultie, Decreased libido, Disorientation, Hallucinations, Hostility, Irritablity, Memory difficulties, Mood Swings, Obsessive thoughts, Physical abuse, Sexual abuse, Sleep disturbances, Suicidal ideation, Other Eyes: No Blurry vision, No Decreased vision, No Double vision, No Dry eyes, No Excessive tearing, No Eye Pain, No Itchy Eyes, No Loss of vision, No Photophobia , No Scotomata, No Uses contacts, No Uses glasses, No Other HEENT: No: Heacaches, Visual Changes, Hearing change, Nasal congestion, Nasal discharge, Oral lesions, Sinus pain, Sore Throat, Epistaxis, Sneezing, Snoring, Tinnitus, Vertigo, Vocal changes, Other ALLERGY AND IMMUNOLOGY: No: Hives, Insect Bite Sensitivity, Itchy/Watery Eyes, Nasal Congestion, Post Nasal Drip, Seasonal Allergies, Other Hematological and Lymphatic: No: Bleeding Problems, Blood Clots, Blood Transfusions, Brusing, Night Sweats, Pallor, Swollen Lymph Nodes, Other ENDOCRINE: No: Breast Changes, Galactorrhea, Hair Pattern Changes, Hot Flashes , Malaise/lethargy, Mood Swings, Palpitations, Polydipsia/polyuria, Skin Changes , Temperature Intolerance, Unexpected Weight Changes, Other Breast: No New/Changing Breast Lumps, No Nipple changes, No Nipple discharge, No Other Respiratory: No: Cough, Hemoptysis, Orthopnea, Pleuritic Pain, Shortness of breath, SOB with excertion, Sputum Changes, Stridor, Tachypnea, Wheezing, Other Cardiovascular: No Chest Pain, No Palpitations, No Orthopnea, No Paroxysmal Noc. Dyspnea, No Edema, No Lt Headedness, No Other Gastrointestinal: No Nausea, No Vomiting, No Abdominal Pain, No Diarrhea, No Constipation, No Melena, No Hematochezia, No Other Genitourinary: No Dysuria, No Frequency, No Incontinence, No Hematuria, No Retention, No Discharge, No Urgency, No Pain, No Flank Pain, No Other, No , No , No , No , No , No , No Musculoskeletal: No Gait Disturbance, No Joint Pain, No Joint Stiffness, No Joint Swelling, No Muscle Pain, No Muscular Weakness, No Pain In:, No Swelling In:, No Other Neurological: No Behavorial Changes, No Bowel/Bladder ControlChng, No Confusion , No Dizziness, No Gait Disturbance, No Headaches, No Impaired Coord/balance, No Memory Loss, No Numbness/Tingling, No Seizures, No Speech Problems, No Tremors, No Visual Changes, No Weakness, No Other Skin: No Dry Skin, No Eczema, No Hair Changes, No Lumps, No Mole Changes, No Mottling, No Nail Changes, No Pruritus, No Rash, No Skin Lesion Changes, No Other, No Acne Physical Exam General: Alert, Oriented X3, Cooperative, No acute distress HEENT: Atraumatic, PERRLA, EOMI, Mucous membr. moist/pink Lungs: Clear to auscultation, Normal air movement Abdomen: Normal bowel sounds, Soft, No tenderness, No hepatosplenomegaly, No masses Rectal Exam: not examined Extremities: No clubbing, No cyanosis, No edema, Normal pulses, No tenderness/ swelling Skin: No rashes, No breakdown, No significant lesion Neuro: Normal gait, Normal speech, Strength at 5/5 X4 ext, Normal tone, Sensation intact, Cranial nerves 3-12 NL, Reflexes 2+ Psych/Mental Status: Mental status NL, Mood NL Vitals Vitals Vital Signs Date Time Temp Pulse Resp B/P (MAP) Pulse Ox O2 Delivery O2 Flow Rate FiO2 09/07/18 06:10 97.6 122 18 99/75 (83) 96 Room Air 97.6 Labs Labs Laboratory Tests Test 09/07/18 06:21 09/07/18 06:45 09/07/18 07:38 09/07/18 09:35 White Blood Count 10.5 x10^3/uL (4.0-11.0) Red Blood Count 5.00 x10^6/uL (3.50-5.40) Hemoglobin 16.6 g/dL (12.0-15.5) Hematocrit 48.0 % (36.0-47.0) Mean Corpuscular Volume 96 fL (79-100) Mean Corpuscular Hemoglobin 33 pg (25-35) Mean Corpuscular Hemoglobin Concent 35 g/dL (31-37) Red Cell Distribution Width 13.9 % (11.5-14.5) Platelet Count 278 x10^3/uL (140-400) Neutrophils (%) (Auto) 51 % (31-73) Lymphocytes (%) (Auto) 41 % (24-48) Monocytes (%) (Auto) 7 % (0-9) Eosinophils (%) (Auto) 1 % (0-3) Basophils (%) (Auto) 1 % (0-3) Neutrophils # (Auto) 5.4 x10^3uL (1.8-7.7) Lymphocytes # (Auto) 4.3 x10^3/uL (1.0-4.8) Monocytes # (Auto) 0.8 x10^3/uL (0.0-1.1) Eosinophils # (Auto) 0.1 x10^3/uL (0.0-0.7) Basophils # (Auto) 0.1 x10^3/uL (0.0-0.2) Glucose (Fingerstick) 139 mg/dL (70-99) Urine Opiates Screen Neg (NEG) Urine Methadone Screen Neg (NEG) Urine Barbiturates Neg (NEG) Urine Phencyclidine Screen Neg (NEG) Urine Amphetamine/Methamphetamine Neg (NEG) Urine Benzodiazepines Screen Pos (NEG) Urine Cocaine Screen Neg (NEG) Urine Cannabinoids Screen Neg (NEG) Urine Ethyl Alcohol Neg (NEG) Magnesium Level 1.8 mg/dL (1.8-2.4) Lipase 105 U/L (73-393) Test 09/07/18 09:45 Sodium Level 135 mmol/L (136-145) Potassium Level 2.8 mmol/L (3.5-5.1) Chloride Level 95 mmol/L (98-107) Carbon Dioxide Level 26 mmol/L (21-32) Anion Gap 14 (6-14) Blood Urea Nitrogen 12 mg/dL (7-20) Creatinine 2.2 mg/dL (0.6-1.0) Estimated GFR (Cockcroft-Gault) 23.7 BUN/Creatinine Ratio 5 (6-20) Glucose Level 113 mg/dL (70-99) Calcium Level 9.8 mg/dL (8.5-10.1) Total Bilirubin 0.5 mg/dL (0.2-1.0) Aspartate Amino Transf (AST/SGOT) 53 U/L (15-37) Alanine Aminotransferase (ALT/SGPT) 60 U/L (14-59) Alkaline Phosphatase 79 U/L (46-116) Total Protein 8.9 g/dL (6.4-8.2) Albumin 4.2 g/dL (3.4-5.0) Albumin/Globulin Ratio 0.9 (1.0-1.7) Ethyl Alcohol Level < 10 mg/dL (0-10) Laboratory Tests Test 09/07/18 06:21 09/07/18 06:45 09/07/18 07:38 09/07/18 09:35 White Blood Count 10.5 x10^3/uL (4.0-11.0) Red Blood Count 5.00 x10^6/uL (3.50-5.40) Hemoglobin 16.6 g/dL (12.0-15.5) Hematocrit 48.0 % (36.0-47.0) Mean Corpuscular Volume 96 fL (79-100) Mean Corpuscular Hemoglobin 33 pg (25-35) Mean Corpuscular Hemoglobin Concent 35 g/dL (31-37) Red Cell Distribution Width 13.9 % (11.5-14.5) Platelet Count 278 x10^3/uL (140-400) Neutrophils (%) (Auto) 51 % (31-73) Lymphocytes (%) (Auto) 41 % (24-48) Monocytes (%) (Auto) 7 % (0-9) Eosinophils (%) (Auto) 1 % (0-3) Basophils (%) (Auto) 1 % (0-3) Neutrophils # (Auto) 5.4 x10^3uL (1.8-7.7) Lymphocytes # (Auto) 4.3 x10^3/uL (1.0-4.8) Monocytes # (Auto) 0.8 x10^3/uL (0.0-1.1) Eosinophils # (Auto) 0.1 x10^3/uL (0.0-0.7) Basophils # (Auto) 0.1 x10^3/uL (0.0-0.2) Glucose (Fingerstick) 139 mg/dL (70-99) Urine Opiates Screen Neg (NEG) Urine Methadone Screen Neg (NEG) Urine Barbiturates Neg (NEG) Urine Phencyclidine Screen Neg (NEG) Urine Amphetamine/Methamphetamine Neg (NEG) Urine Benzodiazepines Screen Pos (NEG) Urine Cocaine Screen Neg (NEG) Urine Cannabinoids Screen Neg (NEG) Urine Ethyl Alcohol Neg (NEG) Magnesium Level 1.8 mg/dL (1.8-2.4) Lipase 105 U/L (73-393) Test 09/07/18 09:45 Sodium Level 135 mmol/L (136-145) Potassium Level 2.8 mmol/L (3.5-5.1) Chloride Level 95 mmol/L (98-107) Carbon Dioxide Level 26 mmol/L (21-32) Anion Gap 14 (6-14) Blood Urea Nitrogen 12 mg/dL (7-20) Creatinine 2.2 mg/dL (0.6-1.0) Estimated GFR (Cockcroft-Gault) 23.7 BUN/Creatinine Ratio 5 (6-20) Glucose Level 113 mg/dL (70-99) Calcium Level 9.8 mg/dL (8.5-10.1) Total Bilirubin 0.5 mg/dL (0.2-1.0) Aspartate Amino Transf (AST/SGOT) 53 U/L (15-37) Alanine Aminotransferase (ALT/SGPT) 60 U/L (14-59) Alkaline Phosphatase 79 U/L (46-116) Total Protein 8.9 g/dL (6.4-8.2) Albumin 4.2 g/dL (3.4-5.0) Albumin/Globulin Ratio 0.9 (1.0-1.7) Ethyl Alcohol Level < 10 mg/dL (0-10) VTE Prophylaxis Ordered VTE Prophylaxis Devices: Contraindicated VTE Pharmacological Prophylaxi: Yes Assessment/Plan Assessment/Plan A/P: Alcohol withdrawal - will treat with banana bag x5, CIWA scale, PAT team to see CHUY - vasomotor nephropathy - IVF Elevated gap anion acidosis secondary to alcoholism - will treat Hypokalemia - will give Elevated LFTs and a drinker - will monitor FEN - KCL, General diet PPX - SCDs FULL CODE Inpatient for ETOH withdrawal at least 2 midnights. NATASHA SEARS MD Sep 07, 2018 11:00
[2018-09-07] MEDS ORDERED: ONDANSETRON PF 4 MG/2 ML VIAL. IV PRN (11:30)
[2018-09-07] MEDS: POTASSIUM CHLORIDE 10MEQ 100 ML IV SCH ×2 (13:00→13:54)
[2018-09-07 13:44] VITALS: BP 108/74
[2018-09-07] MEDS: IV NORMAL SALINE 1000ML BAG 1,000 ML IV SCH ×2 (13:53→14:19)
[2018-09-07] MEDS ORDERED: HALOPERIDOL LACTATE 5 MG/ML VIAL. IVP PRN (14:30)
[2018-09-07] MEDS ORDERED: cloNIDine HCL 0.1 MG TABLET PO PRN (14:30)
[2018-09-07] MEDS ORDERED: diphenhydrAMINE 50 MG/ML VIAL IVP PRN (14:30)
[2018-09-07] MEDS ORDERED: LORazepam 1 MG TABLET PO PRN (14:30)
[2018-09-07] MEDS: POTASSIUM CHLORIDE 40 MEQ in IV DEXTROSE 5% 1,000 ML IV SCH (14:45)
[2018-09-07 15:01] VITALS: BP 110/68
[2018-09-07] MEDS ORDERED: FLUO40CA2 PO (15:14)
[2018-09-07] MEDS ORDERED: GABA600T7 PO (15:14)
[2018-09-07] MEDS ORDERED: QUET100T4 PO (15:14)
[2018-09-07] MEDS ORDERED: OMEP20TA8 PO (15:14)
[2018-09-07 19:48] VITALS: BP 105/71
[2018-09-07] MEDS: QUEtiapine 100 MG TABLET. PO SCH (20:41)
[2018-09-07] MEDS: GABAPENTIN 300 MG CAPSULE. PO SCH (20:41)
[2018-09-07 23:35] VITALS: BP 90/53
[2018-09-08 03:17] VITALS: BP 96/66
[2018-09-08] MEDS: POTASSIUM CHLORIDE 40 MEQ in IV DEXTROSE 5% 1,000 ML IV SCH (05:53)
[2018-09-08 07:17] VITALS: BP 120/57
[2018-09-08] MEDS ORDERED: MULTIVITAMIN with MINERAL TABLET. PO SCH (09:00)
[2018-09-08] MEDS ORDERED: THIAMINE IM 200 MG/2 ML VIAL. IM SCH (09:00)
[2018-09-08] MEDS ORDERED: FOLIC ACID 1 MG TABLET. PO SCH (09:00)
[2018-09-08] MEDS: FLUoxetine HCL 20 MG CAPSULE PO SCH (09:13)
[2018-09-08] MEDS: PANTOPRAZOLE 40 MG TABLET.DR. PO SCH (09:13)
[2018-09-08] MEDS: GABAPENTIN 300 MG CAPSULE. PO SCH ×3 (09:13→20:53)
--- NOTE | 2018-09-08 10:30 | NUR ---
pt not wanting IM thiamine; requesting PO form. Will pg Dr. Lau.
[2018-09-08 10:38] VITALS: BP 104/66
--- NOTE | 2018-09-08 10:40 | PDOC ---
PROGRESS NOTES History of Present Illness History of Present Illness VTE Prophylaxis Ordered VTE Prophylaxis Devices: Contraindicated VTE Pharmacological Prophylaxi: Yes Assessment/Plan Assessment/Plan A/P: Alcohol withdrawal - will treat with banana bag x5, YASMNIWA scale, PAT team to see CHUY - vasomotor nephropathy - IVF Elevated gap anion acidosis secondary to alcoholism - will treat Hypokalemia - will give Elevated LFTs and a drinker - will monitor severe alcohol abuse x 9 yrs dehydration CKD STAGE 3-4 just discharged 3 days ago FEN - KCL, General diet PPX - SCDs iv fluid support FULL CODE Inpatient for ETOH withdrawal at least 2 midnights. NEPHROLOGY CONSULT 47 MIN PT EXAM, CHART REVIEW > 50% of time spent with exam, chart review, pt care coordination Vitals Vitals Vital Signs Date Time Temp Pulse Resp B/P (MAP) Pulse Ox O2 Delivery O2 Flow Rate FiO2 09/08/18 10:38 98.2 75 17 104/66 (79) 98 Room Air 98.2 Physical Exam General: Alert, Oriented X3, Cooperative, No acute distress, mild distress Heart: Regular rate, No murmurs Lungs: Clear Abdomen: Normal bowel sounds, Soft, No tenderness, No hepatosplenomegaly, No masses Extremities: No clubbing, No cyanosis, No edema, Normal pulses, No tenderness/ swelling Skin: No rashes, No breakdown, No significant lesion Assessment and Plan Assessmemt and Plan Problems Medical Problems: (1) Alcoholism Status: Acute (2) Delirium tremens Status: Acute (3) Hypokalemia Status: Acute (4) Renal insufficiency Status: Acute Alcohol withdrawal Hypokalemia Elevated gap anion acidosis secondary to alcoholism Hypokalemia Elevated LFTs and a drinker Comment Review of Relevant I have reviewed the following items siva (where applicable) has been applied. Labs Laboratory Tests Test 09/07/18 06:21 09/07/18 06:45 09/07/18 07:38 09/07/18 09:35 White Blood Count 10.5 x10^3/uL (4.0-11.0) Red Blood Count 5.00 x10^6/uL (3.50-5.40) Hemoglobin 16.6 g/dL (12.0-15.5) Hematocrit 48.0 % (36.0-47.0) Mean Corpuscular Volume 96 fL (79-100) Mean Corpuscular Hemoglobin 33 pg (25-35) Mean Corpuscular Hemoglobin Concent 35 g/dL (31-37) Red Cell Distribution Width 13.9 % (11.5-14.5) Platelet Count 278 x10^3/uL (140-400) Neutrophils (%) (Auto) 51 % (31-73) Lymphocytes (%) (Auto) 41 % (24-48) Monocytes (%) (Auto) 7 % (0-9) Eosinophils (%) (Auto) 1 % (0-3) Basophils (%) (Auto) 1 % (0-3) Neutrophils # (Auto) 5.4 x10^3uL (1.8-7.7) Lymphocytes # (Auto) 4.3 x10^3/uL (1.0-4.8) Monocytes # (Auto) 0.8 x10^3/uL (0.0-1.1) Eosinophils # (Auto) 0.1 x10^3/uL (0.0-0.7) Basophils # (Auto) 0.1 x10^3/uL (0.0-0.2) Glucose (Fingerstick) 139 mg/dL (70-99) Urine Opiates Screen Neg (NEG) Urine Methadone Screen Neg (NEG) Urine Barbiturates Neg (NEG) Urine Phencyclidine Screen Neg (NEG) Urine Amphetamine/Methamphetamine Neg (NEG) Urine Benzodiazepines Screen Pos (NEG) Urine Cocaine Screen Neg (NEG) Urine Cannabinoids Screen Neg (NEG) Urine Ethyl Alcohol Neg (NEG) Magnesium Level 1.8 mg/dL (1.8-2.4) Lipase 105 U/L (73-393) Test 09/07/18 09:45 Sodium Level 135 mmol/L (136-145) Potassium Level 2.8 mmol/L (3.5-5.1) Chloride Level 95 mmol/L (98-107) Carbon Dioxide Level 26 mmol/L (21-32) Anion Gap 14 (6-14) Blood Urea Nitrogen 12 mg/dL (7-20) Creatinine 2.2 mg/dL (0.6-1.0) Estimated GFR (Cockcroft-Gault) 23.7 BUN/Creatinine Ratio 5 (6-20) Glucose Level 113 mg/dL (70-99) Calcium Level 9.8 mg/dL (8.5-10.1) Total Bilirubin 0.5 mg/dL (0.2-1.0) Aspartate Amino Transf (AST/SGOT) 53 U/L (15-37) Alanine Aminotransferase (ALT/SGPT) 60 U/L (14-59) Alkaline Phosphatase 79 U/L (46-116) Total Protein 8.9 g/dL (6.4-8.2) Albumin 4.2 g/dL (3.4-5.0) Albumin/Globulin Ratio 0.9 (1.0-1.7) Ethyl Alcohol Level < 10 mg/dL (0-10) Medications Current Medications Sodium Chloride 1,000 ml @ 1,000 mls/hr Q1H IV ; Start 09/07/18 at 07:00; Stop 09/07/18 at 07:00; Status DC Ondansetron HCl (Zofran) 4 mg 1X ONCE IV ; Start 09/07/18 at 07:00; Stop at 07:01; Status DC Multivitamins 10 ml/Thiamine HCl 100 mg/Folic Acid 1 mg/Sodium Chloride 1,011.2 ml @ 1,000 mls/ hr Q1H IV ; Start 09/07/18 at 07:00; Stop 09/07/18 at 07:00; Status DC Ondansetron HCl (Zofran Odt) 8 mg 1X ONCE PO Last administered on 09/07/18at 06 :52; Start 09/07/18 at 07:00; Stop 09/07/18 at 07:01; Status DC Multivitamins 10 ml/Thiamine HCl 100 mg/Folic Acid 1 mg/Sodium Chloride 1,011.2 ml @ 1,000.088 mls/hr 1X ONCE IV Last administered on 09/07/18at 09:49; Start 09/07/18 at 09:15; Stop 09/07/18 at 10:15; Status DC Lorazepam (Ativan) 1 mg 1X ONCE IV Last administered on 09/07/18at 10:40; Start 09/07/18 at 10:30; Stop 09/07/18 at 10:31; Status DC Potassium Chloride (Klor-Con) 40 meq 1X ONCE PO Last administered on at 10:39; Start 09/07/18 at 10:30; Stop 09/07/18 at 10:31; Status DC Sodium Chloride 1,000 ml @ 1,000 mls/hr 1X ONCE IV ; Start 09/07/18 at 10:30; Stop 09/07/18 at 11:29; Status DC Sodium Chloride 1,000 ml @ 1,000 mls/hr 1X ONCE IV Last administered on at 10:33; Start 09/07/18 at 10:30; Stop 09/07/18 at 11:29; Status DC Ondansetron HCl (Zofran) 4 mg PRN Q8HRS PRN IV NAUSEA/VOMITING; Start 09/07/18 at 11:30; Stop 09/08/18 at 11:29 Sodium Chloride 1,000 ml @ 150 mls/hr Q6H40M IV Last administered on at 14:19; Start 09/07/18 at 11:25; Stop 09/07/18 at 14:54; Status DC Potassium Chloride/Water 100 ml @ 100 mls/hr Q1H IV Last administered on at 13:00; Start 09/07/18 at 12:00; Stop 09/07/18 at 13:59; Status DC Potassium Chloride 40 meq/ Dextrose 1,020 ml @ 75 mls/hr [id number] IV Last administered on 09/08/18at 05:53; Start 09/07/18 at 15:00 Multivitamins (Thera M Plus) 1 tab DAILY PO Last administered on 09/08/18at 09: 13; Start 09/08/18 at 09:00 Folic Acid (Folic Acid) 1 mg DAILY PO Last administered on 09/08/18at 09:13; Start 09/08/18 at 09:00 Thiamine HCl 100 mg DAILY IM ; Start 09/08/18 at 09:00; Stop 09/13/18 at 08:59 Lorazepam (Ativan) 2 mg PRN Q1HR PRN PO For CIWA 8-14 Last administered on 09/07at 14:45; Start 09/07/18 at 14:30 Lorazepam (Ativan) 2 mg PRN Q1HR PRN IV For CIWA 8-14; Start 09/07/18 at 14:30 Haloperidol Lactate (Haldol Inj) 5 mg PRN Q4HRS PRN IVP Hallucinatns,Confusn, Delirium; Start 09/07/18 at 14:30 Diphenhydramine HCl (Benadryl) 25 mg PRN Q15MIN PRN IVP EPS symptoms 2'Haldol admin; Start 09/07/18 at 14:30 Clonidine HCl (Catapres) 0.1 mg PRN Q1HR PRN PO SBP > 180 or DBP > 100, MRX3; Start 09/07/18 at 14:30 Fluoxetine HCl (PROzac) 60 mg DAILY PO Last administered on 09/08/18at 09:13; Start 09/08/18 at 09:00 Pantoprazole Sodium (Protonix) 40 mg DAILYAC PO Last administered on 09/08/18at 09:13; Start 09/08/18 at 07:30 Quetiapine Fumarate (SEROquel) 100 mg QHS PO Last administered on 09/07/18at 20: 41; Start 09/07/18 at 21:00 Gabapentin (Neurontin) 300 mg TID PO Last administered on 09/08/18at 09:13; Start 09/07/18 at 21:00 Active Scripts Active Reported Omeprazole 20 Mg Tablet.dr 1 Tab PO DAILY Fluoxetine Hcl 40 Mg Capsule 60 Mg PO DAILY Gabapentin 600 Mg Tablet 300 Mg PO TID Seroquel (Quetiapine Fumarate) 100 Mg Tablet 1 Tab PO QHS Vitals/I & O Vital Sign - Last 24 Hours 09/07/18 09/07/18 09/07/18 09/07/18 11:11 11:42 12:12 12:42 Pulse 92 84 92 96 Resp 16 17 18 B/P (MAP) 104/71 (82) 105/67 (80) 105/70 (82) 87/57 (67) Pulse Ox 100 97 98 99 O2 Delivery Room Air Room Air Room Air Room Air 09/07/18 09/07/18 09/07/18 09/07/18 13:44 14:27 15:01 19:48 Temp 98.4 98.2 98.2 98.4 98.2 98.2 Pulse 107 103 85 Resp 19 18 16 B/P (MAP) 108/74 (85) 110/68 (82) 105/71 (82) Pulse Ox 95 94 99 O2 Delivery Room Air Room Air Room Air Room Air 09/07/18 09/07/18 09/08/18 09/08/18 19:57 23:35 03:17 07:17 Temp 98.9 98.4 98.4 98.9 98.4 98.4 Pulse 89 90 73 Resp 16 16 16 B/P (MAP) 90/53 (65) 96/66 (76) 120/57 (78) Pulse Ox 97 97 100 O2 Delivery Room Air Room Air Room Air Room Air 09/08/18 09/08/18 07:25 10:38 Temp 98.2 98.2 Pulse 75 Resp 17 B/P (MAP) 104/66 (79) Pulse Ox 98 O2 Delivery Room Air Room Air Intake and Output 09/07/18 09/07/18 09/08/18 15:00 23:00 07:00 Intake Total 1340 ml 660 ml 280 ml Balance 1340 ml 660 ml 280 ml WHITNEY GASTON MD Sep 08, 2018 10:40
[2018-09-08 12:07] LABS: CALCIUM 8.9 mg/dL (8.5-10.1); CREATININE 1.5 mg/dL (0.6-1.0); GFR 36.9; POTASSIUM 3.8 mmol/L (3.5-5.1)
--- NOTE | 2018-09-08 12:19 | NUR ---
SW consulted for ETOH withdrawal. Spoke with pt in room who reported she goes to AA meetings. SW provided pt with [facility]antos and discussed OP CM services. SW also provided pt with detox treatment centers and RSI information. Pt accepted resources and verbalized understanding. KISHORE HYLTON.
[2018-09-08] MEDS: LORazepam 1 MG TABLET PO SCH ×2 (12:46→17:58)
[2018-09-08] MEDS: MULTIVIT INFUSN,ADULT 4,VIT K 10 ML, THIAMINE INJ 100 MG, FOLIC ACID INJ 1 MG in IV NOR... IV SCH (13:11)
[2018-09-08 15:10] VITALS: BP 118/75
--- NOTE | 2018-09-08 18:26 | PDOC2 ---
CONSULT Date of Consult Date of Consult DATE: 09/08/18 TIME: 18:16 Reason for Consult Reason for Consult: Renal failure Referring Physician Referring Physician: Dr. Ellis Source Source: Chart review, Patient History of Present Illness Reason for Visit: Pt lying with eyes closed, not answering questions, Only nodding Hx Obtained from chart review Patient is a 48 year old CF who brought in by EMS because of alcohol abuse. Patient states she went on an alcohol binge . She cannot stop drinking alcohol and had unknown amount of vodka at presentation to the ED . She denied suicidal and homicidal ideation and states she had AA follow-up and treatment previously. She states she was vomiting for several hours and was unable to hold anything down. Denies having seizure in the past. Denies any other illicit drugs. In the ED founs to have low K 2.8 and cr of 2.2, AST, ALT elevated. Denies any CP, SOB. NO F/C. dnies urinary complaints Past Medical History Cardiovascular: No pertinent hx Pulmonary: No pertinent hx GI: No pertinent hx Heme/Onc: No pertinent hx Hepatobiliary: No pertinent hx Psych: Anxiety, Addictions Rheumatologic: No pertinent hx Infectious disease: No pertinent hx ENT: No pertinent hx Renal/: No pertinent hx Endocrine: No pertinent hx Dermatology: No pertinent hx Social History <1 pack per day ALCOHOL: heavy Drugs: None Current Problem List Problem List Problems Medical Problems: (1) Alcoholism Status: Acute (2) Delirium tremens Status: Acute (3) Hypokalemia Status: Acute (4) Renal insufficiency Status: Acute Current Medications Current Medications Current Medications Sodium Chloride 1,000 ml @ 1,000 mls/hr Q1H IV ; Start 09/07/18 at 07:00; Stop 09/07/18 at 07:00; Status DC Ondansetron HCl (Zofran) 4 mg 1X ONCE IV ; Start 09/07/18 at 07:00; Stop at 07:01; Status DC Multivitamins 10 ml/Thiamine HCl 100 mg/Folic Acid 1 mg/Sodium Chloride 1,011.2 ml @ 1,000 mls/ hr Q1H IV ; Start 09/07/18 at 07:00; Stop 09/07/18 at 07:00; Status DC Ondansetron HCl (Zofran Odt) 8 mg 1X ONCE PO Last administered on 09/07/18at 06 :52; Start 09/07/18 at 07:00; Stop 09/07/18 at 07:01; Status DC Multivitamins 10 ml/Thiamine HCl 100 mg/Folic Acid 1 mg/Sodium Chloride 1,011.2 ml @ 1,000.088 mls/hr 1X ONCE IV Last administered on 09/07/18at 09:49; Start 09/07/18 at 09:15; Stop 09/07/18 at 10:15; Status DC Lorazepam (Ativan) 1 mg 1X ONCE IV Last administered on 09/07/18at 10:40; Start 09/07/18 at 10:30; Stop 09/07/18 at 10:31; Status DC Potassium Chloride (Klor-Con) 40 meq 1X ONCE PO Last administered on at 10:39; Start 09/07/18 at 10:30; Stop 09/07/18 at 10:31; Status DC Sodium Chloride 1,000 ml @ 1,000 mls/hr 1X ONCE IV ; Start 09/07/18 at 10:30; Stop 09/07/18 at 11:29; Status DC Sodium Chloride 1,000 ml @ 1,000 mls/hr 1X ONCE IV Last administered on at 10:33; Start 09/07/18 at 10:30; Stop 09/07/18 at 11:29; Status DC Ondansetron HCl (Zofran) 4 mg PRN Q8HRS PRN IV NAUSEA/VOMITING; Start 09/07/18 at 11:30; Stop 09/08/18 at 11:29; Status DC Sodium Chloride 1,000 ml @ 150 mls/hr Q6H40M IV Last administered on at 14:19; Start 09/07/18 at 11:25; Stop 09/07/18 at 14:54; Status DC Potassium Chloride/Water 100 ml @ 100 mls/hr Q1H IV Last administered on at 13:00; Start 09/07/18 at 12:00; Stop 09/07/18 at 13:59; Status DC Potassium Chloride 40 meq/ Dextrose 1,020 ml @ 75 mls/hr [id number] IV Last administered on 09/08/18at 05:53; Start 09/07/18 at 15:00 Multivitamins (Thera M Plus) 1 tab DAILY PO Last administered on 09/08/18 09: 13; Start 09/08/18 at 09:00; Stop 09/08/18 at 12:15; Status DC Folic Acid (Folic Acid) 1 mg DAILY PO Last administered on 09/08/18at 09:13; Start 09/08/18 at 09:00; Stop 09/08/18 at 12:14; Status DC Thiamine HCl 100 mg DAILY IM ; Start 09/08/18 at 09:00; Stop 09/08/18 at 12:15; Status DC Lorazepam (Ativan) 2 mg PRN Q1HR PRN PO For CIWA 8-14 Last administered on 09/07at 14:45; Start 09/07/18 at 14:30 Lorazepam (Ativan) 2 mg PRN Q1HR PRN IV For CIWA 8-14 Last administered on 09/08at 15:22; Start 09/07/18 at 14:30 Haloperidol Lactate (Haldol Inj) 5 mg PRN Q4HRS PRN IVP Hallucinatns,Confusn, Delirium; Start 09/07/18 at 14:30 Diphenhydramine HCl (Benadryl) 25 mg PRN Q15MIN PRN IVP EPS symptoms 2'Haldol admin; Start 09/07/18 at 14:30 Clonidine HCl (Catapres) 0.1 mg PRN Q1HR PRN PO SBP > 180 or DBP > 100, MRX3; Start 09/07/18 at 14:30 Fluoxetine HCl (PROzac) 60 mg DAILY PO Last administered on 09/08/18at 09:13; Start 09/08/18 at 09:00 Pantoprazole Sodium (Protonix) 40 mg DAILYAC PO Last administered on 09/08/18at 09:13; Start 09/08/18 at 07:30 Quetiapine Fumarate (SEROquel) 100 mg QHS PO Last administered on 09/07/18at 20: 41; Start 09/07/18 at 21:00 Gabapentin (Neurontin) 300 mg TID PO Last administered on 09/08/18at 13:10; Start 09/07/18 at 21:00 Multivitamins 10 ml/Thiamine HCl 100 mg/Folic Acid 1 mg/Sodium Chloride 1,011.2 ml @ 100 mls/ hr DAILY IV Last administered on 09/08/18at 13:11; Start at 13:00; Stop 09/12/18 at 19:07 Multivitamins (Thera M Plus) 1 tab DAILY PO ; Start 09/13/18 at 09:00 Folic Acid (Folic Acid) 1 mg DAILY PO ; Start 09/13/18 at 09:00 Thiamine HCl 100 mg/Dextrose 51 ml @ 100 mls/hr DAILY IV ; Start 09/09/18 at 09 :00; Stop 09/13/18 at 09:31; Status UNV Lorazepam (Ativan) 2 mg Q6H PO Last administered on 09/08/18at 17:58; Start at 12:15; Stop 09/09/18 at 18:16 Thiamine Mononitrate (Vitamin B-1) 100 mg DAILY PO ; Start 09/13/18 at 09:00 Active Scripts Active Reported Omeprazole 20 Mg Tablet.dr 1 Tab PO DAILY Fluoxetine Hcl 40 Mg Capsule 60 Mg PO DAILY Gabapentin 600 Mg Tablet 300 Mg PO TID Seroquel (Quetiapine Fumarate) 100 Mg Tablet 1 Tab PO QHS Allergies Allergies: Coded Allergies: No Known Drug Allergies (Unverified , 09/03/18) ROS Review of System As per HPI Physical Exam Physical Exam General: No acute distress HEENT: OM moist Neck Supple Lungs: Clear to auscultation, Non labored CV- RRR Abdomen: Normal bowel sounds, Soft, No tenderness, Extremities: No clubbing, No cyanosis, No edema, Skin: No rashes, Neuro: Grossly Normal No [place], No CVA or SP tenderness Vital Signs Vital Signs Date Time Temp Pulse Resp B/P (MAP) Pulse Ox O2 Delivery O2 Flow Rate FiO2 09/08/18 15:10 98.0 83 17 118/75 (89) 99 Room Air 98.0 Assessment & Plan CHUY - Pre-renal/Dehydration /Hypotensive Renal function Improved with IVF Monitor Baseline Unknown Hypokalemia Improved with replacement Hyponatremia- Improved ETOH Abuse Elevated LFT's sec to ETOH Labs Labs Laboratory Tests Test 09/07/18 06:21 09/07/18 06:45 09/07/18 07:38 09/07/18 09:35 White Blood Count 10.5 x10^3/uL (4.0-11.0) Red Blood Count 5.00 x10^6/uL (3.50-5.40) Hemoglobin 16.6 g/dL (12.0-15.5) Hematocrit 48.0 % (36.0-47.0) Mean Corpuscular Volume 96 fL (79-100) Mean Corpuscular Hemoglobin 33 pg (25-35) Mean Corpuscular Hemoglobin Concent 35 g/dL (31-37) Red Cell Distribution Width 13.9 % (11.5-14.5) Platelet Count 278 x10^3/uL (140-400) Neutrophils (%) (Auto) 51 % (31-73) Lymphocytes (%) (Auto) 41 % (24-48) Monocytes (%) (Auto) 7 % (0-9) Eosinophils (%) (Auto) 1 % (0-3) Basophils (%) (Auto) 1 % (0-3) Neutrophils # (Auto) 5.4 x10^3uL (1.8-7.7) Lymphocytes # (Auto) 4.3 x10^3/uL (1.0-4.8) Monocytes # (Auto) 0.8 x10^3/uL (0.0-1.1) Eosinophils # (Auto) 0.1 x10^3/uL (0.0-0.7) Basophils # (Auto) 0.1 x10^3/uL (0.0-0.2) Glucose (Fingerstick) 139 mg/dL (70-99) Urine Opiates Screen Neg (NEG) Urine Methadone Screen Neg (NEG) Urine Barbiturates Neg (NEG) Urine Phencyclidine Screen Neg (NEG) Urine Amphetamine/Methamphetamine Neg (NEG) Urine Benzodiazepines Screen Pos (NEG) Urine Cocaine Screen Neg (NEG) Urine Cannabinoids Screen Neg (NEG) Urine Ethyl Alcohol Neg (NEG) Magnesium Level 1.8 mg/dL (1.8-2.4) Lipase 105 U/L (73-393) Test 09/07/18 09:45 09/08/18 11:20 Sodium Level 135 mmol/L (136-145) 136 mmol/L (136-145) Potassium Level 2.8 mmol/L (3.5-5.1) 3.8 mmol/L (3.5-5.1) Chloride Level 95 mmol/L (98-107) 102 mmol/L (98-107) Carbon Dioxide Level 26 mmol/L (21-32) 24 mmol/L (21-32) Anion Gap 14 (6-14) 10 (6-14) Blood Urea Nitrogen 12 mg/dL (7-20) 7 mg/dL (7-20) Creatinine 2.2 mg/dL (0.6-1.0) 1.5 mg/dL (0.6-1.0) Estimated GFR (Cockcroft-Gault) 23.7 36.9 BUN/Creatinine Ratio 5 (6-20) Glucose Level 113 mg/dL (70-99) 115 mg/dL (70-99) Calcium Level 9.8 mg/dL (8.5-10.1) 8.9 mg/dL (8.5-10.1) Total Bilirubin 0.5 mg/dL (0.2-1.0) Aspartate Amino Transf (AST/SGOT) 53 U/L (15-37) Alanine Aminotransferase (ALT/SGPT) 60 U/L (14-59) Alkaline Phosphatase 79 U/L (46-116) Total Protein 8.9 g/dL (6.4-8.2) Albumin 4.2 g/dL (3.4-5.0) Albumin/Globulin Ratio 0.9 (1.0-1.7) Ethyl Alcohol Level < 10 mg/dL (0-10) Laboratory Tests Test 09/08/18 11:20 Sodium Level 136 mmol/L (136-145) Potassium Level 3.8 mmol/L (3.5-5.1) Chloride Level 102 mmol/L (98-107) Carbon Dioxide Level 24 mmol/L (21-32) Anion Gap 10 (6-14) Blood Urea Nitrogen 7 mg/dL (7-20) Creatinine 1.5 mg/dL (0.6-1.0) Estimated GFR (Cockcroft-Gault) 36.9 Glucose Level 115 mg/dL (70-99) Calcium Level 8.9 mg/dL (8.5-10.1) Review All relevant outside records, renal labs, imaging studies, telemetry/EKG's were reviewed. RACHELLE SHARPE MD Sep 08, 2018 18:26
[2018-09-08 19:00] VITALS: BP 118/70
[2018-09-08] MEDS: QUEtiapine 100 MG TABLET. PO SCH (20:53)
[2018-09-08 23:00] VITALS: BP 114/78
[2018-09-09] MEDS: LORazepam 1 MG TABLET PO SCH ×4 (00:15→18:15)
[2018-09-09] MEDS: POTASSIUM CHLORIDE 40 MEQ in IV DEXTROSE 5% 1,000 ML IV SCH ×2 (00:15→07:48)
[2018-09-09 03:00] VITALS: BP 104/52
[2018-09-09 05:24] LABS: BASO % 0 % (0-3); EOS # 0.1 x10^3/uL (0.0-0.7); EOS % 2 % (0-3); HEMATOCRIT 35.2 % (36.0-47.0); HEMOGLOBIN 11.8 g/dL (12.0-15.5); LYMPH # 2.1 x10^3/uL (1.0-4.8); LYMPH % 41 % (24-48); MEAN CORPUSCULAR HEMOGLOBIN 33 pg (25-35); MEAN CORPUSCULAR HGB CONC 34 g/dL (31-37); MEAN CORPUSCULAR VOLUME 99 fL (79-100); MONO # 0.3 x10^3/uL (0.0-1.1); MONO % 6 % (0-9); NEUT # 2.6 x10^3uL (1.8-7.7); NEUT % 52 % (31-73); PLATELET COUNT 197 x10^3/uL (140-400); RED BLOOD COUNT 3.55 x10^6/uL (3.50-5.40); RED CELL DISTRIBUTION WIDTH 13.8 % (11.5-14.5); WHITE BLOOD COUNT 5.1 x10^3/uL (4.0-11.0)
[2018-09-09 05:47] LABS: ALBUMIN 3.1 g/dL (3.4-5.0); ALBUMIN/GLOBULIN RATIO 0.8 (1.0-1.7); CALCIUM 8.8 mg/dL (8.5-10.1); CREATININE 1.2 mg/dL (0.6-1.0); GFR 47.7; POTASSIUM 3.9 mmol/L (3.5-5.1); TOTAL BILIRUBIN 0.3 mg/dL (0.2-1.0); TOTAL PROTEIN 6.9 g/dL (6.4-8.2)
[2018-09-09 07:00] VITALS: BP 106/64
[2018-09-09] MEDS: PANTOPRAZOLE 40 MG TABLET.DR. PO SCH (07:55)
[2018-09-09] MEDS: GABAPENTIN 300 MG CAPSULE. PO SCH ×3 (07:55→20:55)
[2018-09-09] MEDS: FLUoxetine HCL 20 MG CAPSULE PO SCH (07:56)
[2018-09-09] MEDS ORDERED: THIAMINE INJ 100 MG in IV DEXTROSE 5% 50 ML IV SCH (09:00)
[2018-09-09] MEDS: MULTIVIT INFUSN,ADULT 4,VIT K 10 ML, THIAMINE INJ 100 MG, FOLIC ACID INJ 1 MG in IV NOR... IV SCH (09:41)
--- NOTE | 2018-09-09 10:09 | PDOC ---
PROGRESS NOTES History of Present Illness History of Present Illness VTE Prophylaxis Ordered VTE Prophylaxis Devices: Contraindicated VTE Pharmacological Prophylaxi: Yes Assessment/Plan Assessment/Plan A/P: Alcohol withdrawal - will treat with banana bag x5, YASMINWA kristin, PAT team to see CHUY - vasomotor nephropathy - IVF Elevated gap anion acidosis secondary to alcoholism - will treat Hypokalemia - will give Elevated LFTs and a drinker - will monitor severe alcohol abuse x 9 yrs dehydration CKD STAGE 3-4 [employer] just discharged 3 days ago FEN - KCL, General diet PPX - SCDs iv fluid support FULL CODE Inpatient for ETOH withdrawal at least 2 midnights. NEPHROLOGY CONSULT 42 MIN PT EXAM, CHART REVIEW > 50% of time spent with exam, chart review, pt care coordination Vitals Vitals Vital Signs Date Time Temp Pulse Resp B/P (MAP) Pulse Ox O2 Delivery O2 Flow Rate FiO2 09/09/18 08:00 Room Air 09/09/18 07:00 98.1 66 16 106/64 (78) 100 98.1 Physical Exam General: Alert, Oriented X3, Cooperative, No acute distress, mild distress, moderate distress Heart: Regular rate, Normal S1, Normal S2, No murmurs Lungs: Clear Abdomen: Normal bowel sounds, Soft, No tenderness, No hepatosplenomegaly, No masses Extremities: No clubbing, No cyanosis, No edema, Normal pulses, No tenderness/ swelling Skin: No rashes, No breakdown, No significant lesion Labs LABS Laboratory Tests Test 09/08/18 11:20 09/09/18 04:00 09/09/18 04:40 Sodium Level 136 mmol/L (136-145) 137 mmol/L (136-145) Potassium Level 3.8 mmol/L (3.5-5.1) 3.9 mmol/L (3.5-5.1) Chloride Level 102 mmol/L (98-107) 101 mmol/L (98-107) Carbon Dioxide Level 24 mmol/L (21-32) 26 mmol/L (21-32) Anion Gap 10 (6-14) 10 (6-14) Blood Urea Nitrogen 7 mg/dL (7-20) 8 mg/dL (7-20) Creatinine 1.5 mg/dL (0.6-1.0) 1.2 mg/dL (0.6-1.0) Estimated GFR (Cockcroft-Gault) 36.9 47.7 Glucose Level 115 mg/dL (70-99) 106 mg/dL (70-99) Calcium Level 8.9 mg/dL (8.5-10.1) 8.8 mg/dL (8.5-10.1) White Blood Count 5.1 x10^3/uL (4.0-11.0) Red Blood Count 3.55 x10^6/uL (3.50-5.40) Hemoglobin 11.8 g/dL (12.0-15.5) Hematocrit 35.2 % (36.0-47.0) Mean Corpuscular Volume 99 fL (79-100) Mean Corpuscular Hemoglobin 33 pg (25-35) Mean Corpuscular Hemoglobin Concent 34 g/dL (31-37) Red Cell Distribution Width 13.8 % (11.5-14.5) Platelet Count 197 x10^3/uL (140-400) Neutrophils (%) (Auto) 52 % (31-73) Lymphocytes (%) (Auto) 41 % (24-48) Monocytes (%) (Auto) 6 % (0-9) Eosinophils (%) (Auto) 2 % (0-3) Basophils (%) (Auto) 0 % (0-3) Neutrophils # (Auto) 2.6 x10^3uL (1.8-7.7) Lymphocytes # (Auto) 2.1 x10^3/uL (1.0-4.8) Monocytes # (Auto) 0.3 x10^3/uL (0.0-1.1) Eosinophils # (Auto) 0.1 x10^3/uL (0.0-0.7) Basophils # (Auto) 0.0 x10^3/uL (0.0-0.2) BUN/Creatinine Ratio 7 (6-20) Total Bilirubin 0.3 mg/dL (0.2-1.0) Aspartate Amino Transf (AST/SGOT) 29 U/L (15-37) Alanine Aminotransferase (ALT/SGPT) 37 U/L (14-59) Alkaline Phosphatase 78 U/L (46-116) Total Protein 6.9 g/dL (6.4-8.2) Albumin 3.1 g/dL (3.4-5.0) Albumin/Globulin Ratio 0.8 (1.0-1.7) Assessment and Plan Assessmemt and Plan Problems Medical Problems: (1) Alcoholism Status: Acute (2) Delirium tremens Status: Acute (3) Hypokalemia Status: Acute (4) Renal insufficiency Status: Acute Comment Review of Relevant I have reviewed the following items siva (where applicable) has been applied. Labs Laboratory Tests Test 09/08/18 11:20 09/09/18 04:00 09/09/18 04:40 Sodium Level 136 mmol/L (136-145) 137 mmol/L (136-145) Potassium Level 3.8 mmol/L (3.5-5.1) 3.9 mmol/L (3.5-5.1) Chloride Level 102 mmol/L (98-107) 101 mmol/L (98-107) Carbon Dioxide Level 24 mmol/L (21-32) 26 mmol/L (21-32) Anion Gap 10 (6-14) 10 (6-14) Blood Urea Nitrogen 7 mg/dL (7-20) 8 mg/dL (7-20) Creatinine 1.5 mg/dL (0.6-1.0) 1.2 mg/dL (0.6-1.0) Estimated GFR (Cockcroft-Gault) 36.9 47.7 Glucose Level 115 mg/dL (70-99) 106 mg/dL (70-99) Calcium Level 8.9 mg/dL (8.5-10.1) 8.8 mg/dL (8.5-10.1) White Blood Count 5.1 x10^3/uL (4.0-11.0) Red Blood Count 3.55 x10^6/uL (3.50-5.40) Hemoglobin 11.8 g/dL (12.0-15.5) Hematocrit 35.2 % (36.0-47.0) Mean Corpuscular Volume 99 fL (79-100) Mean Corpuscular Hemoglobin 33 pg (25-35) Mean Corpuscular Hemoglobin Concent 34 g/dL (31-37) Red Cell Distribution Width 13.8 % (11.5-14.5) Platelet Count 197 x10^3/uL (140-400) Neutrophils (%) (Auto) 52 % (31-73) Lymphocytes (%) (Auto) 41 % (24-48) Monocytes (%) (Auto) 6 % (0-9) Eosinophils (%) (Auto) 2 % (0-3) Basophils (%) (Auto) 0 % (0-3) Neutrophils # (Auto) 2.6 x10^3uL (1.8-7.7) Lymphocytes # (Auto) 2.1 x10^3/uL (1.0-4.8) Monocytes # (Auto) 0.3 x10^3/uL (0.0-1.1) Eosinophils # (Auto) 0.1 x10^3/uL (0.0-0.7) Basophils # (Auto) 0.0 x10^3/uL (0.0-0.2) BUN/Creatinine Ratio 7 (6-20) Total Bilirubin 0.3 mg/dL (0.2-1.0) Aspartate Amino Transf (AST/SGOT) 29 U/L (15-37) Alanine Aminotransferase (ALT/SGPT) 37 U/L (14-59) Alkaline Phosphatase 78 U/L (46-116) Total Protein 6.9 g/dL (6.4-8.2) Albumin 3.1 g/dL (3.4-5.0) Albumin/Globulin Ratio 0.8 (1.0-1.7) Laboratory Tests Test 09/08/18 11:20 09/09/18 04:00 09/09/18 04:40 Sodium Level 136 mmol/L (136-145) 137 mmol/L (136-145) Potassium Level 3.8 mmol/L (3.5-5.1) 3.9 mmol/L (3.5-5.1) Chloride Level 102 mmol/L (98-107) 101 mmol/L (98-107) Carbon Dioxide Level 24 mmol/L (21-32) 26 mmol/L (21-32) Anion Gap 10 (6-14) 10 (6-14) Blood Urea Nitrogen 7 mg/dL (7-20) 8 mg/dL (7-20) Creatinine 1.5 mg/dL (0.6-1.0) 1.2 mg/dL (0.6-1.0) Estimated GFR (Cockcroft-Gault) 36.9 47.7 Glucose Level 115 mg/dL (70-99) 106 mg/dL (70-99) Calcium Level 8.9 mg/dL (8.5-10.1) 8.8 mg/dL (8.5-10.1) White Blood Count 5.1 x10^3/uL (4.0-11.0) Red Blood Count 3.55 x10^6/uL (3.50-5.40) Hemoglobin 11.8 g/dL (12.0-15.5) Hematocrit 35.2 % (36.0-47.0) Mean Corpuscular Volume 99 fL (79-100) Mean Corpuscular Hemoglobin 33 pg (25-35) Mean Corpuscular Hemoglobin Concent 34 g/dL (31-37) Red Cell Distribution Width 13.8 % (11.5-14.5) Platelet Count 197 x10^3/uL (140-400) Neutrophils (%) (Auto) 52 % (31-73) Lymphocytes (%) (Auto) 41 % (24-48) Monocytes (%) (Auto) 6 % (0-9) Eosinophils (%) (Auto) 2 % (0-3) Basophils (%) (Auto) 0 % (0-3) Neutrophils # (Auto) 2.6 x10^3uL (1.8-7.7) Lymphocytes # (Auto) 2.1 x10^3/uL (1.0-4.8) Monocytes # (Auto) 0.3 x10^3/uL (0.0-1.1) Eosinophils # (Auto) 0.1 x10^3/uL (0.0-0.7) Basophils # (Auto) 0.0 x10^3/uL (0.0-0.2) BUN/Creatinine Ratio 7 (6-20) Total Bilirubin 0.3 mg/dL (0.2-1.0) Aspartate Amino Transf (AST/SGOT) 29 U/L (15-37) Alanine Aminotransferase (ALT/SGPT) 37 U/L (14-59) Alkaline Phosphatase 78 U/L (46-116) Total Protein 6.9 g/dL (6.4-8.2) Albumin 3.1 g/dL (3.4-5.0) Albumin/Globulin Ratio 0.8 (1.0-1.7) Medications Current Medications Sodium Chloride 1,000 ml @ 1,000 mls/hr Q1H IV ; Start 09/07/18 at 07:00; Stop 09/07/18 at 07:00; Status DC Ondansetron HCl (Zofran) 4 mg 1X ONCE IV ; Start 09/07/18 at 07:00; Stop at 07:01; Status DC Multivitamins 10 ml/Thiamine HCl 100 mg/Folic Acid 1 mg/Sodium Chloride 1,011.2 ml @ 1,000 mls/ hr Q1H IV ; Start 09/07/18 at 07:00; Stop 09/07/18 at 07:00; Status DC Ondansetron HCl (Zofran Odt) 8 mg 1X ONCE PO Last administered on 09/07/18at 06 :52; Start 09/07/18 at 07:00; Stop 09/07/18 at 07:01; Status DC Multivitamins 10 ml/Thiamine HCl 100 mg/Folic Acid 1 mg/Sodium Chloride 1,011.2 ml @ 1,000.088 mls/hr 1X ONCE IV Last administered on 09/07/18at 09:49; Start 09/07/18 at 09:15; Stop 09/07/18 at 10:15; Status DC Lorazepam (Ativan) 1 mg 1X ONCE IV Last administered on 09/07/18at 10:40; Start 09/07/18 at 10:30; Stop 09/07/18 at 10:31; Status DC Potassium Chloride (Klor-Con) 40 meq 1X ONCE PO Last administered on at 10:39; Start 09/07/18 at 10:30; Stop 09/07/18 at 10:31; Status DC Sodium Chloride 1,000 ml @ 1,000 mls/hr 1X ONCE IV ; Start 09/07/18 at 10:30; Stop 09/07/18 at 11:29; Status DC Sodium Chloride 1,000 ml @ 1,000 mls/hr 1X ONCE IV Last administered on at 10:33; Start 09/07/18 at 10:30; Stop 09/07/18 at 11:29; Status DC Ondansetron HCl (Zofran) 4 mg PRN Q8HRS PRN IV NAUSEA/VOMITING; Start 09/07/18 at 11:30; Stop 09/08/18 at 11:29; Status DC Sodium Chloride 1,000 ml @ 150 mls/hr Q6H40M IV Last administered on at 14:19; Start 09/07/18 at 11:25; Stop 09/07/18 at 14:54; Status DC Potassium Chloride/Water 100 ml @ 100 mls/hr Q1H IV Last administered on at 13:00; Start 09/07/18 at 12:00; Stop 09/07/18 at 13:59; Status DC Potassium Chloride 40 meq/ Dextrose 1,020 ml @ 75 mls/hr [id number] IV Last administered on 09/09/18at 00:15; Start 09/07/18 at 15:00 Multivitamins (Thera M Plus) 1 tab DAILY PO Last administered on 09/08/18at 09: 13; Start 09/08/18 at 09:00; Stop 09/08/18 at 12:15; Status DC Folic Acid (Folic Acid) 1 mg DAILY PO Last administered on 09/08/18at 09:13; Start 09/08/18 at 09:00; Stop 09/08/18 at 12:14; Status DC Thiamine HCl 100 mg DAILY IM ; Start 09/08/18 at 09:00; Stop 09/08/18 at 12:15; Status DC Lorazepam (Ativan) 2 mg PRN Q1HR PRN PO For CIWA 8-14 Last administered on 09/07at 14:45; Start 09/07/18 at 14:30 Lorazepam (Ativan) 2 mg PRN Q1HR PRN IV For CIWA 8-14 Last administered on 09/08at 15:22; Start 09/07/18 at 14:30 Haloperidol Lactate (Haldol Inj) 5 mg PRN Q4HRS PRN IVP Hallucinatns,Confusn, Delirium; Start 09/07/18 at 14:30 Diphenhydramine HCl (Benadryl) 25 mg PRN Q15MIN PRN IVP EPS symptoms 2'Haldol admin; Start 09/07/18 at 14:30 Clonidine HCl (Catapres) 0.1 mg PRN Q1HR PRN PO SBP > 180 or DBP > 100, MRX3; Start 09/07/18 at 14:30 Fluoxetine HCl (PROzac) 60 mg DAILY PO Last administered on 09/09/18at 07:56; Start 09/08/18 at 09:00 Pantoprazole Sodium (Protonix) 40 mg DAILYAC PO Last administered on 09/09/18at 07:55; Start 09/08/18 at 07:30 Quetiapine Fumarate (SEROquel) 100 mg QHS PO Last administered on 09/08/18at 20: 53; Start 09/07/18 at 21:00 Gabapentin (Neurontin) 300 mg TID PO Last administered on 09/09/18at 07:55; Start 09/07/18 at 21:00 Multivitamins 10 ml/Thiamine HCl 100 mg/Folic Acid 1 mg/Sodium Chloride 1,011.2 ml @ 100 mls/ hr DAILY IV Last administered on 09/09/18at 09:41; Start at 13:00; Stop 09/12/18 at 19:07 Multivitamins (Thera M Plus) 1 tab DAILY PO ; Start 09/13/18 at 09:00 Folic Acid (Folic Acid) 1 mg DAILY PO ; Start 09/13/18 at 09:00 Thiamine HCl 100 mg/Dextrose 51 ml @ 100 mls/hr DAILY IV ; Start 09/09/18 at 09 :00; Stop 09/13/18 at 09:31; Status UNV Lorazepam (Ativan) 2 mg Q6H PO Last administered on 09/09/18at 07:56; Start at 12:15; Stop 09/09/18 at 18:16 Thiamine Mononitrate (Vitamin B-1) 100 mg DAILY PO ; Start 09/13/18 at 09:00 Active Scripts Active Reported Omeprazole 20 Mg Tablet.dr 1 Tab PO DAILY Fluoxetine Hcl 40 Mg Capsule 60 Mg PO DAILY Gabapentin 600 Mg Tablet 300 Mg PO TID Seroquel (Quetiapine Fumarate) 100 Mg Tablet 1 Tab PO QHS Vitals/I & O Vital Sign - Last 24 Hours 09/08/18 09/08/18 09/08/18 09/08/18 10:38 15:10 19:00 20:00 Temp 98.2 98.0 98.3 98.2 98.0 98.3 Pulse 75 83 99 Resp 17 17 18 B/P (MAP) 104/66 (79) 118/75 (89) 118/70 (86) Pulse Ox 98 99 96 O2 Delivery Room Air Room Air Room Air Room Air 09/08/18 09/09/18 09/09/18 09/09/18 23:00 03:00 07:00 08:00 Temp 98.6 98.2 98.1 98.6 98.2 98.1 Pulse 82 89 66 Resp 18 18 16 B/P (MAP) 114/78 (90) 104/52 (69) 106/64 (78) Pulse Ox 99 97 100 O2 Delivery Room Air Room Air Room Air Room Air Intake and Output 09/08/18 09/08/18 09/09/18 14:59 22:59 06:59 Intake Total 520 ml 500 ml 600 ml Output Total 1 ml Balance 520 ml 500 ml 599 ml WHITNEY GASTON MD Sep 09, 2018 10:09
[2018-09-09 10:30] VITALS: BP 118/74
--- NOTE | 2018-09-09 14:45 | PDOC ---
SUBJECTIVE ROS Stable OBJECTIVE Vital Signs Vital Signs Date Time Temp Pulse Resp B/P (MAP) Pulse Ox O2 Delivery O2 Flow Rate FiO2 09/09/18 10:30 98.2 84 17 118/74 (89) 98 Room Air 98.2 I & 0 Intake and Output 09/09/18 06:59 Intake Total 1620 ml Output Total 1 ml Balance 1619 ml Intake Oral 1620 ml Output Urine Total 1 ml # Voids 6 PHYSICAL EXAM Physical Exam General: No acute distress HEENT: OM moist Neck Supple Lungs: Clear to auscultation, Non labored CV- RRR Abdomen: Normal bowel sounds, Soft, No tenderness, Extremities: No clubbing, No cyanosis, No edema, Skin: No rashes, Neuro: Grossly Normal No [place], No CVA or SP tenderness Vital Signs Vital Signs Date Time Temp Pulse Resp B/P (MAP) Pulse Ox O2 Delivery O2 Flow Rate FiO2 09/08/18 15:10 98.0 83 17 118/75 (89) 99 Room Air 98.0 DIAGNOSIS/ASSESSMENT Assessment & Plan CHUY - Pre-renal/Dehydration /Hypotensive Renal function Improving Hypokalemia Improved with replacement Hyponatremia- Improved ETOH Abuse Elevated LFT's sec to ETOH COMMENT/RELEVANT DATA Meds Current Medications Medications (Trade) Dose Ordered Sig/Jakob Start Time Stop Time Status Last Admin Dose Admin Clonidine HCl (Catapres) 0.1 mg PRN Q1HR PRN 09/07/18 14:30 Diphenhydramine HCl (Benadryl) 25 mg PRN Q15MIN PRN 09/07/18 14:30 Fluoxetine HCl (PROzac) 60 mg DAILY 09/08/18 09:00 09/09/18 07:56 60 MG Folic Acid (Folic Acid) 1 mg DAILY 09/13/18 09:00 Gabapentin (Neurontin) 300 mg TID 09/07/18 21:00 09/09/18 12:16 300 MG Haloperidol Lactate (Haldol Inj) 5 mg PRN Q4HRS PRN 09/07/18 14:30 Lorazepam (Ativan) 2 mg Q6H 09/08/18 12:15 09/09/18 18:16 09/09/18 12:16 2 MG Multivitamins (Thera M Plus) 1 tab DAILY 09/13/18 09:00 Multivitamins 10 ml/Thiamine HCl 100 mg/Folic Acid 1 mg/Sodium Chloride 1,011.2 ml @ 100 mls/ hr DAILY 09/08/18 13:00 09/12/18 19:07 09/09/18 09:41 100 MLS/HR Ondansetron HCl (Zofran Odt) 8 mg 1X ONCE 09/07/18 07:00 09/07/18 07:01 DC 09/07/18 06:52 8 MG Ondansetron HCl (Zofran) 4 mg PRN Q8HRS PRN 09/07/18 11:30 09/08/18 11:29 DC Pantoprazole Sodium (Protonix) 40 mg DAILYAC 09/08/18 07:30 09/09/18 07:55 40 MG Potassium Chloride 40 meq/ Dextrose 1,020 ml @ 75 mls/hr [id number] 09/07/18 15:00 09/09/18 00:15 75 MLS/HR Potassium Chloride/Water 100 ml @ 100 mls/hr Q1H 09/07/18 12:00 09/07/18 13:59 DC 09/07/18 13:00 100 MLS/HR Potassium Chloride (Klor-Con) 40 meq 1X ONCE 09/07/18 10:30 09/07/18 10:31 DC 09/07/18 10:39 40 MEQ Quetiapine Fumarate (SEROquel) 100 mg QHS 09/07/18 21:00 09/08/18 20:53 100 MG Sodium Chloride 1,000 ml @ 150 mls/hr [id number] 09/07/18 11:25 09/07/18 14:54 DC 09/07/18 14:19 150 MLS/HR Thiamine Mononitrate (Vitamin B-1) 100 mg DAILY 09/13/18 09:00 Thiamine HCl 100 mg DAILY 09/08/18 09:00 09/08/18 12:15 DC Thiamine HCl 100 mg/Dextrose 51 ml @ 100 mls/hr DAILY 09/09/18 09:00 09/13/18 09:31 UNV Lab Laboratory Tests Test 09/09/18 04:00 09/09/18 04:40 White Blood Count 5.1 x10^3/uL (4.0-11.0) Red Blood Count 3.55 x10^6/uL (3.50-5.40) Hemoglobin 11.8 g/dL (12.0-15.5) Hematocrit 35.2 % (36.0-47.0) Mean Corpuscular Volume 99 fL (79-100) Mean Corpuscular Hemoglobin 33 pg (25-35) Mean Corpuscular Hemoglobin Concent 34 g/dL (31-37) Red Cell Distribution Width 13.8 % (11.5-14.5) Platelet Count 197 x10^3/uL (140-400) Neutrophils (%) (Auto) 52 % (31-73) Lymphocytes (%) (Auto) 41 % (24-48) Monocytes (%) (Auto) 6 % (0-9) Eosinophils (%) (Auto) 2 % (0-3) Basophils (%) (Auto) 0 % (0-3) Neutrophils # (Auto) 2.6 x10^3uL (1.8-7.7) Lymphocytes # (Auto) 2.1 x10^3/uL (1.0-4.8) Monocytes # (Auto) 0.3 x10^3/uL (0.0-1.1) Eosinophils # (Auto) 0.1 x10^3/uL (0.0-0.7) Basophils # (Auto) 0.0 x10^3/uL (0.0-0.2) Sodium Level 137 mmol/L (136-145) Potassium Level 3.9 mmol/L (3.5-5.1) Chloride Level 101 mmol/L (98-107) Carbon Dioxide Level 26 mmol/L (21-32) Anion Gap 10 (6-14) Blood Urea Nitrogen 8 mg/dL (7-20) Creatinine 1.2 mg/dL (0.6-1.0) Estimated GFR (Cockcroft-Gault) 47.7 BUN/Creatinine Ratio 7 (6-20) Glucose Level 106 mg/dL (70-99) Calcium Level 8.8 mg/dL (8.5-10.1) Total Bilirubin 0.3 mg/dL (0.2-1.0) Aspartate Amino Transf (AST/SGOT) 29 U/L (15-37) Alanine Aminotransferase (ALT/SGPT) 37 U/L (14-59) Alkaline Phosphatase 78 U/L (46-116) Total Protein 6.9 g/dL (6.4-8.2) Albumin 3.1 g/dL (3.4-5.0) Albumin/Globulin Ratio 0.8 (1.0-1.7) Results All relevant outside records, renal labs, imaging studies, telemetry/EKG's were reviewed. RACHELLE SHARPE MD Sep 09, 2018 14:45
[2018-09-09 15:12] VITALS: BP 119/80
[2018-09-09 19:05] VITALS: BP 124/80
[2018-09-09] MEDS: QUEtiapine 100 MG TABLET. PO SCH (20:55)
[2018-09-09 23:21] VITALS: BP 108/62
[2018-09-10 03:40] VITALS: BP 99/67
[2018-09-10] MEDS: POTASSIUM CHLORIDE 40 MEQ in IV DEXTROSE 5% 1,000 ML IV SCH (04:48)
[2018-09-10 07:13] LABS: BASO % 0 % (0-3); EOS # 0.1 x10^3/uL (0.0-0.7); EOS % 2 % (0-3); HEMATOCRIT 37.5 % (36.0-47.0); HEMOGLOBIN 12.5 g/dL (12.0-15.5); LYMPH # 1.8 x10^3/uL (1.0-4.8); LYMPH % 41 % (24-48); MEAN CORPUSCULAR HEMOGLOBIN 33 pg (25-35); MEAN CORPUSCULAR HGB CONC 34 g/dL (31-37); MEAN CORPUSCULAR VOLUME 99 fL (79-100); MONO # 0.3 x10^3/uL (0.0-1.1); MONO % 8 % (0-9); NEUT # 2.2 x10^3uL (1.8-7.7); NEUT % 49 % (31-73); PLATELET COUNT 200 x10^3/uL (140-400); RED BLOOD COUNT 3.81 x10^6/uL (3.50-5.40); RED CELL DISTRIBUTION WIDTH 13.9 % (11.5-14.5); WHITE BLOOD COUNT 4.4 x10^3/uL (4.0-11.0)
[2018-09-10 07:29] LABS: ALBUMIN 3.4 g/dL (3.4-5.0); ALBUMIN/GLOBULIN RATIO 0.8 (1.0-1.7); CALCIUM 9.4 mg/dL (8.5-10.1); CREATININE 0.8 mg/dL (0.6-1.0); GFR 76.2; MAGNESIUM 1.7 mg/dL (1.8-2.4); PHOSPHORUS 4.3 mg/dL (2.6-4.7); POTASSIUM 3.7 mmol/L (3.5-5.1); TOTAL BILIRUBIN 0.2 mg/dL (0.2-1.0); TOTAL PROTEIN 7.5 g/dL (6.4-8.2)
[2018-09-10 07:40] VITALS: BP 103/69
--- NOTE | 2018-09-10 08:05 | RAD ---
Abdominal ultrasound, 09/09/2018: HISTORY: Abdominal pain, chronic alcohol abuse, nausea and vomiting The gallbladder is within normal limits in size. There is no sonographic evidence of cholelithiasis. The gallbladder wall is not thickened. The common hepatic duct is of normal size measuring 2-3 mm. The hepatic echogenicity is increased suggesting fatty change. No hepatic mass is seen. The spleen is within normal limits in size. Limited views of the pancreas show no abnormality. The abdominal aorta and inferior vena cava are unremarkable. No renal abnormality is detected. No free fluid is evident in the abdomen. IMPRESSION: 1. Increased hepatic echogenicity most commonly due to hepatic steatosis. 2. No acute abdominal abnormality is detected. Electronically signed by: Carl Gauthier MD (09/10/2018 8:02 AM) [facility]
[2018-09-10] MEDS: GABAPENTIN 300 MG CAPSULE. PO SCH ×2 (09:05→14:26)
[2018-09-10] MEDS: FLUoxetine HCL 20 MG CAPSULE PO SCH (09:05)
[2018-09-10] MEDS: PANTOPRAZOLE 40 MG TABLET.DR. PO SCH (09:05)
[2018-09-10] MEDS: MULTIVIT INFUSN,ADULT 4,VIT K 10 ML, THIAMINE INJ 100 MG, FOLIC ACID INJ 1 MG in IV NOR... IV SCH (09:06)
--- NOTE | 2018-09-10 10:01 | PDOC ---
SUBJECTIVE ROS Sleeping, no concerns voiced OBJECTIVE Vital Signs Vital Signs Date Time Temp Pulse Resp B/P (MAP) Pulse Ox O2 Delivery O2 Flow Rate FiO2 09/10/18 08:00 Room Air 09/10/18 07:40 98.0 73 16 103/69 (80) 96 98.0 I & 0 Intake and Output 09/10/18 07:00 Intake Total 1680 ml Balance 1680 ml Intake Oral 1680 ml # Voids 5 PHYSICAL EXAM Physical Exam General: No acute distress HEENT: OM moist Neck Supple Lungs: Clear to auscultation, Non labored CV- RRR Abdomen: Normal bowel sounds, Soft, No tenderness, Extremities: No clubbing, No cyanosis, No edema, Skin: No rashes, Neuro: Grossly Normal No [place], No CVA or SP tenderness DIAGNOSIS/ASSESSMENT Assessment & Plan CHUY - Pre-renal/Dehydration /Hypotensive Renal function improved, Creat normal Hypokalemia Improved with replacement Hyponatremia- Improved ETOH Abuse Elevated LFT's sec to ETOH Will sign off COMMENT/RELEVANT DATA Meds Current Medications Medications (Trade) Dose Ordered Sig/Jakob Start Time Stop Time Status Last Admin Dose Admin Clonidine HCl (Catapres) 0.1 mg PRN Q1HR PRN 09/07/18 14:30 Diphenhydramine HCl (Benadryl) 25 mg PRN Q15MIN PRN 09/07/18 14:30 Fluoxetine HCl (PROzac) 60 mg DAILY 09/08/18 09:00 09/10/18 09:05 60 MG Folic Acid (Folic Acid) 1 mg DAILY 09/13/18 09:00 Gabapentin (Neurontin) 300 mg TID 09/07/18 21:00 09/10/18 09:05 300 MG Haloperidol Lactate (Haldol Inj) 5 mg PRN Q4HRS PRN 09/07/18 14:30 Lorazepam (Ativan) 2 mg Q6H 09/08/18 12:15 09/09/18 18:16 DC 09/09/18 12:16 2 MG Multivitamins (Thera M Plus) 1 tab DAILY 09/13/18 09:00 Multivitamins 10 ml/Thiamine HCl 100 mg/Folic Acid 1 mg/Sodium Chloride 1,011.2 ml @ 100 mls/ hr DAILY 09/08/18 13:00 09/12/18 19:07 09/10/18 09:06 100 MLS/HR Ondansetron HCl (Zofran Odt) 8 mg 1X ONCE 09/07/18 07:00 09/07/18 07:01 DC 09/07/18 06:52 8 MG Ondansetron HCl (Zofran) 4 mg PRN Q8HRS PRN 09/07/18 11:30 09/08/18 11:29 DC Pantoprazole Sodium (Protonix) 40 mg DAILYAC 09/08/18 07:30 09/10/18 09:05 40 MG Potassium Chloride 40 meq/ Dextrose 1,020 ml @ 75 mls/hr [id number] 09/07/18 15:00 09/10/18 04:48 75 MLS/HR Potassium Chloride/Water 100 ml @ 100 mls/hr Q1H 09/07/18 12:00 09/07/18 13:59 DC 09/07/18 13:00 100 MLS/HR Potassium Chloride (Klor-Con) 40 meq 1X ONCE 09/07/18 10:30 09/07/18 10:31 DC 09/07/18 10:39 40 MEQ Quetiapine Fumarate (SEROquel) 100 mg QHS 09/07/18 21:00 09/09/18 20:55 100 MG Sodium Chloride 1,000 ml @ 150 mls/hr Q6H40M 09/07/18 11:25 09/07/18 14:54 DC 09/07/18 14:19 150 MLS/HR Thiamine Mononitrate (Vitamin B-1) 100 mg DAILY 09/13/18 09:00 Thiamine HCl 100 mg DAILY 09/08/18 09:00 09/08/18 12:15 DC Thiamine HCl 100 mg/Dextrose 51 ml @ 100 mls/hr DAILY 09/09/18 09:00 09/13/18 09:31 UNV Lab Laboratory Tests Test 09/10/18 06:00 White Blood Count 4.4 x10^3/uL (4.0-11.0) Red Blood Count 3.81 x10^6/uL (3.50-5.40) Hemoglobin 12.5 g/dL (12.0-15.5) Hematocrit 37.5 % (36.0-47.0) Mean Corpuscular Volume 99 fL (79-100) Mean Corpuscular Hemoglobin 33 pg (25-35) Mean Corpuscular Hemoglobin Concent 34 g/dL (31-37) Red Cell Distribution Width 13.9 % (11.5-14.5) Platelet Count 200 x10^3/uL (140-400) Neutrophils (%) (Auto) 49 % (31-73) Lymphocytes (%) (Auto) 41 % (24-48) Monocytes (%) (Auto) 8 % (0-9) Eosinophils (%) (Auto) 2 % (0-3) Basophils (%) (Auto) 0 % (0-3) Neutrophils # (Auto) 2.2 x10^3uL (1.8-7.7) Lymphocytes # (Auto) 1.8 x10^3/uL (1.0-4.8) Monocytes # (Auto) 0.3 x10^3/uL (0.0-1.1) Eosinophils # (Auto) 0.1 x10^3/uL (0.0-0.7) Basophils # (Auto) 0.0 x10^3/uL (0.0-0.2) Sodium Level 136 mmol/L (136-145) Potassium Level 3.7 mmol/L (3.5-5.1) Chloride Level 99 mmol/L (98-107) Carbon Dioxide Level 27 mmol/L (21-32) Anion Gap 10 (6-14) Blood Urea Nitrogen 10 mg/dL (7-20) Creatinine 0.8 mg/dL (0.6-1.0) Estimated GFR (Cockcroft-Gault) 76.2 BUN/Creatinine Ratio 13 (6-20) Glucose Level 109 mg/dL (70-99) Calcium Level 9.4 mg/dL (8.5-10.1) Phosphorus Level 4.3 mg/dL (2.6-4.7) Magnesium Level 1.7 mg/dL (1.8-2.4) Total Bilirubin 0.2 mg/dL (0.2-1.0) Aspartate Amino Transf (AST/SGOT) 26 U/L (15-37) Alanine Aminotransferase (ALT/SGPT) 32 U/L (14-59) Alkaline Phosphatase 62 U/L (46-116) Total Protein 7.5 g/dL (6.4-8.2) Albumin 3.4 g/dL (3.4-5.0) Albumin/Globulin Ratio 0.8 (1.0-1.7) Results All relevant outside records, renal labs, imaging studies, telemetry/EKG's were reviewed. RACHELLE SHARPE MD Sep 10, 2018 10:01
[2018-09-10 11:02] VITALS: BP 113/78
--- NOTE | 2018-09-10 11:11 | PDOC ---
PROGRESS NOTES History of Present Illness History of Present Illness VTE Prophylaxis Ordered VTE Prophylaxis Devices: Contraindicated VTE Pharmacological Prophylaxi: Yes DISCHARGE DX Assessment/Plan A/P: SEVERE ALCOHOL DEPENDENCY Alcohol withdrawal - will treat with banana bag x5, CIWA scale, PAT team to see CHUY - vasomotor nephropathy - IVF Elevated gap anion acidosis secondary to alcoholism - Hypokalemia - will give Elevated LFTs and a drinker - will monitor severe alcohol abuse x 9 yrs dehydration CKD STAGE 3-4 [employer] just discharged 3 days ago FEN - KCL, General diet PPX - SCDs iv fluid support FULL CODE Inpatient for ETOH withdrawal at least 2 midnights. NEPHROLOGY CONSULT ATTEND AA DAILY, NEEDS A SPONSER 32 MIN PT EXAM, D/C PLANNING TIME CHART REVIEW > 50% of time spent with exam, chart review, pt care coordination Vitals Vitals Vital Signs Date Time Temp Pulse Resp B/P (MAP) Pulse Ox O2 Delivery O2 Flow Rate FiO2 09/10/18 11:02 98.8 77 20 113/78 (90) 97 Room Air 98.8 Physical Exam General: Alert, Oriented X3, Cooperative, No acute distress, mild distress, moderate distress Heart: Regular rate, Normal S1, Normal S2, No murmurs Lungs: Clear Abdomen: Normal bowel sounds, Soft, No tenderness, No hepatosplenomegaly, No masses Extremities: No clubbing, No cyanosis, No edema, Normal pulses, No tenderness/ swelling Skin: No rashes, No breakdown, No significant lesion Labs LABS SEX: F EXAM STATUS: ADM IN ORD. PHYSICIAN: WHITNEY GASTON MD REASON: PAIN, VOMITING (ATE LUNCH DO AFTER 6 PM) PROCEDURE: ABDOMEN COMPLETE Abdominal ultrasound, 09/09/2018: HISTORY: Abdominal pain, chronic alcohol abuse, nausea and vomiting The gallbladder is within normal limits in size. There is no sonographic evidence of cholelithiasis. The gallbladder wall is not thickened. The common hepatic duct is of normal size measuring 2-3 mm. The hepatic echogenicity is increased suggesting fatty change. No hepatic mass is seen. The spleen is within normal limits in size. Limited views of the pancreas show no abnormality. The abdominal aorta and inferior vena cava are unremarkable. No renal abnormality is detected. No free fluid is evident in the abdomen. IMPRESSION: 1. Increased hepatic echogenicity most commonly due to hepatic steatosis. 2. No acute abdominal abnormality is detected. Electronically signed by: Carl Gauthier MD (09/10/2018 8:02 AM) [facility] DICTATED and SIGNED BY: CARL GAUTHIER MD DATE: 09/10/18 0802 Laboratory Tests Test 09/10/18 06:00 White Blood Count 4.4 x10^3/uL (4.0-11.0) Red Blood Count 3.81 x10^6/uL (3.50-5.40) Hemoglobin 12.5 g/dL (12.0-15.5) Hematocrit 37.5 % (36.0-47.0) Mean Corpuscular Volume 99 fL (79-100) Mean Corpuscular Hemoglobin 33 pg (25-35) Mean Corpuscular Hemoglobin Concent 34 g/dL (31-37) Red Cell Distribution Width 13.9 % (11.5-14.5) Platelet Count 200 x10^3/uL (140-400) Neutrophils (%) (Auto) 49 % (31-73) Lymphocytes (%) (Auto) 41 % (24-48) Monocytes (%) (Auto) 8 % (0-9) Eosinophils (%) (Auto) 2 % (0-3) Basophils (%) (Auto) 0 % (0-3) Neutrophils # (Auto) 2.2 x10^3uL (1.8-7.7) Lymphocytes # (Auto) 1.8 x10^3/uL (1.0-4.8) Monocytes # (Auto) 0.3 x10^3/uL (0.0-1.1) Eosinophils # (Auto) 0.1 x10^3/uL (0.0-0.7) Basophils # (Auto) 0.0 x10^3/uL (0.0-0.2) Sodium Level 136 mmol/L (136-145) Potassium Level 3.7 mmol/L (3.5-5.1) Chloride Level 99 mmol/L (98-107) Carbon Dioxide Level 27 mmol/L (21-32) Anion Gap 10 (6-14) Blood Urea Nitrogen 10 mg/dL (7-20) Creatinine 0.8 mg/dL (0.6-1.0) Estimated GFR (Cockcroft-Gault) 76.2 BUN/Creatinine Ratio 13 (6-20) Glucose Level 109 mg/dL (70-99) Calcium Level 9.4 mg/dL (8.5-10.1) Phosphorus Level 4.3 mg/dL (2.6-4.7) Magnesium Level 1.7 mg/dL (1.8-2.4) Total Bilirubin 0.2 mg/dL (0.2-1.0) Aspartate Amino Transf (AST/SGOT) 26 U/L (15-37) Alanine Aminotransferase (ALT/SGPT) 32 U/L (14-59) Alkaline Phosphatase 62 U/L (46-116) Total Protein 7.5 g/dL (6.4-8.2) Albumin 3.4 g/dL (3.4-5.0) Albumin/Globulin Ratio 0.8 (1.0-1.7) Assessment and Plan Assessmemt and Plan Problems Medical Problems: (1) Alcoholism Status: Acute (2) Delirium tremens Status: Acute (3) Hypokalemia Status: Acute (4) Renal insufficiency Status: Acute Comment Review of Relevant I have reviewed the following items siva (where applicable) has been applied. Labs Laboratory Tests Test 09/08/18 11:20 09/09/18 04:00 09/09/18 04:40 09/10/18 06:00 Sodium Level 136 mmol/L (136-145) 137 mmol/L (136-145) 136 mmol/L (136-145) Potassium Level 3.8 mmol/L (3.5-5.1) 3.9 mmol/L (3.5-5.1) 3.7 mmol/L (3.5-5.1) Chloride Level 102 mmol/L (98-107) 101 mmol/L (98-107) 99 mmol/L (98-107) Carbon Dioxide Level 24 mmol/L (21-32) 26 mmol/L (21-32) 27 mmol/L (21-32) Anion Gap 10 (6-14) 10 (6-14) 10 (6-14) Blood Urea Nitrogen 7 mg/dL (7-20) 8 mg/dL (7-20) 10 mg/dL (7-20) Creatinine 1.5 mg/dL (0.6-1.0) 1.2 mg/dL (0.6-1.0) 0.8 mg/dL (0.6-1.0) Estimated GFR (Cockcroft-Gault) 36.9 47.7 76.2 Glucose Level 115 mg/dL (70-99) 106 mg/dL (70-99) 109 mg/dL (70-99) Calcium Level 8.9 mg/dL (8.5-10.1) 8.8 mg/dL (8.5-10.1) 9.4 mg/dL (8.5-10.1) White Blood Count 5.1 x10^3/uL (4.0-11.0) 4.4 x10^3/uL (4.0-11.0) Red Blood Count 3.55 x10^6/uL (3.50-5.40) 3.81 x10^6/uL (3.50-5.40) Hemoglobin 11.8 g/dL (12.0-15.5) 12.5 g/dL (12.0-15.5) Hematocrit 35.2 % (36.0-47.0) 37.5 % (36.0-47.0) Mean Corpuscular Volume 99 fL (79-100) 99 fL (79-100) Mean Corpuscular Hemoglobin 33 pg (25-35) 33 pg (25-35) Mean Corpuscular Hemoglobin Concent 34 g/dL (31-37) 34 g/dL (31-37) Red Cell Distribution Width 13.8 % (11.5-14.5) 13.9 % (11.5-14.5) Platelet Count 197 x10^3/uL (140-400) 200 x10^3/uL (140-400) Neutrophils (%) (Auto) 52 % (31-73) 49 % (31-73) Lymphocytes (%) (Auto) 41 % (24-48) 41 % (24-48) Monocytes (%) (Auto) 6 % (0-9) 8 % (0-9) Eosinophils (%) (Auto) 2 % (0-3) 2 % (0-3) Basophils (%) (Auto) 0 % (0-3) 0 % (0-3) Neutrophils # (Auto) 2.6 x10^3uL (1.8-7.7) 2.2 x10^3uL (1.8-7.7) Lymphocytes # (Auto) 2.1 x10^3/uL (1.0-4.8) 1.8 x10^3/uL (1.0-4.8) Monocytes # (Auto) 0.3 x10^3/uL (0.0-1.1) 0.3 x10^3/uL (0.0-1.1) Eosinophils # (Auto) 0.1 x10^3/uL (0.0-0.7) 0.1 x10^3/uL (0.0-0.7) Basophils # (Auto) 0.0 x10^3/uL (0.0-0.2) 0.0 x10^3/uL (0.0-0.2) BUN/Creatinine Ratio 7 (6-20) 13 (6-20) Total Bilirubin 0.3 mg/dL (0.2-1.0) 0.2 mg/dL (0.2-1.0) Aspartate Amino Transf (AST/SGOT) 29 U/L (15-37) 26 U/L (15-37) Alanine Aminotransferase (ALT/SGPT) 37 U/L (14-59) 32 U/L (14-59) Alkaline Phosphatase 78 U/L (46-116) 62 U/L (46-116) Total Protein 6.9 g/dL (6.4-8.2) 7.5 g/dL (6.4-8.2) Albumin 3.1 g/dL (3.4-5.0) 3.4 g/dL (3.4-5.0) Albumin/Globulin Ratio 0.8 (1.0-1.7) 0.8 (1.0-1.7) Phosphorus Level 4.3 mg/dL (2.6-4.7) Magnesium Level 1.7 mg/dL (1.8-2.4) Laboratory Tests Test 09/10/18 06:00 White Blood Count 4.4 x10^3/uL (4.0-11.0) Red Blood Count 3.81 x10^6/uL (3.50-5.40) Hemoglobin 12.5 g/dL (12.0-15.5) Hematocrit 37.5 % (36.0-47.0) Mean Corpuscular Volume 99 fL (79-100) Mean Corpuscular Hemoglobin 33 pg (25-35) Mean Corpuscular Hemoglobin Concent 34 g/dL (31-37) Red Cell Distribution Width 13.9 % (11.5-14.5) Platelet Count 200 x10^3/uL (140-400) Neutrophils (%) (Auto) 49 % (31-73) Lymphocytes (%) (Auto) 41 % (24-48) Monocytes (%) (Auto) 8 % (0-9) Eosinophils (%) (Auto) 2 % (0-3) Basophils (%) (Auto) 0 % (0-3) Neutrophils # (Auto) 2.2 x10^3uL (1.8-7.7) Lymphocytes # (Auto) 1.8 x10^3/uL (1.0-4.8) Monocytes # (Auto) 0.3 x10^3/uL (0.0-1.1) Eosinophils # (Auto) 0.1 x10^3/uL (0.0-0.7) Basophils # (Auto) 0.0 x10^3/uL (0.0-0.2) Sodium Level 136 mmol/L (136-145) Potassium Level 3.7 mmol/L (3.5-5.1) Chloride Level 99 mmol/L (98-107) Carbon Dioxide Level 27 mmol/L (21-32) Anion Gap 10 (6-14) Blood Urea Nitrogen 10 mg/dL (7-20) Creatinine 0.8 mg/dL (0.6-1.0) Estimated GFR (Cockcroft-Gault) 76.2 BUN/Creatinine Ratio 13 (6-20) Glucose Level 109 mg/dL (70-99) Calcium Level 9.4 mg/dL (8.5-10.1) Phosphorus Level 4.3 mg/dL (2.6-4.7) Magnesium Level 1.7 mg/dL (1.8-2.4) Total Bilirubin 0.2 mg/dL (0.2-1.0) Aspartate Amino Transf (AST/SGOT) 26 U/L (15-37) Alanine Aminotransferase (ALT/SGPT) 32 U/L (14-59) Alkaline Phosphatase 62 U/L (46-116) Total Protein 7.5 g/dL (6.4-8.2) Albumin 3.4 g/dL (3.4-5.0) Albumin/Globulin Ratio 0.8 (1.0-1.7) Medications Current Medications Sodium Chloride 1,000 ml @ 1,000 mls/hr Q1H IV ; Start 09/07/18 at 07:00; Stop 09/07/18 at 07:00; Status DC Ondansetron HCl (Zofran) 4 mg 1X ONCE IV ; Start 09/07/18 at 07:00; Stop at 07:01; Status DC Multivitamins 10 ml/Thiamine HCl 100 mg/Folic Acid 1 mg/Sodium Chloride 1,011.2 ml @ 1,000 mls/ hr Q1H IV ; Start 09/07/18 at 07:00; Stop 09/07/18 at 07:00; Status DC Ondansetron HCl (Zofran Odt) 8 mg 1X ONCE PO Last administered on 09/07/18at 06 :52; Start 09/07/18 at 07:00; Stop 09/07/18 at 07:01; Status DC Multivitamins 10 ml/Thiamine HCl 100 mg/Folic Acid 1 mg/Sodium Chloride 1,011.2 ml @ 1,000.088 mls/hr 1X ONCE IV Last administered on 09/07/18at 09:49; Start 09/07/18 at 09:15; Stop 09/07/18 at 10:15; Status DC Lorazepam (Ativan) 1 mg 1X ONCE IV Last administered on 09/07/18at 10:40; Start 09/07/18 at 10:30; Stop 09/07/18 at 10:31; Status DC Potassium Chloride (Klor-Con) 40 meq 1X ONCE PO Last administered on at 10:39; Start 09/07/18 at 10:30; Stop 09/07/18 at 10:31; Status DC Sodium Chloride 1,000 ml @ 1,000 mls/hr 1X ONCE IV ; Start 09/07/18 at 10:30; Stop 09/07/18 at 11:29; Status DC Sodium Chloride 1,000 ml @ 1,000 mls/hr 1X ONCE IV Last administered on at 10:33; Start 09/07/18 at 10:30; Stop 09/07/18 at 11:29; Status DC Ondansetron HCl (Zofran) 4 mg PRN Q8HRS PRN IV NAUSEA/VOMITING; Start 09/07/18 at 11:30; Stop 09/08/18 at 11:29; Status DC Sodium Chloride 1,000 ml @ 150 mls/hr Q6H40M IV Last administered on at 14:19; Start 09/07/18 at 11:25; Stop 09/07/18 at 14:54; Status DC Potassium Chloride/Water 100 ml @ 100 mls/hr Q1H IV Last administered on 13:00; Start 09/07/18 at 12:00; Stop 09/07/18 at 13:59; Status DC Potassium Chloride 40 meq/ Dextrose 1,020 ml @ 75 mls/hr [id number] IV Last administered on 09/10/18at 04:48; Start 09/07/18 at 15:00 Multivitamins (Thera M Plus) 1 tab DAILY PO Last administered on 09/08/18at 09: 13; Start 09/08/18 at 09:00; Stop 09/08/18 at 12:15; Status DC Folic Acid (Folic Acid) 1 mg DAILY PO Last administered on 09/08/18at 09:13; Start 09/08/18 at 09:00; Stop 09/08/18 at 12:14; Status DC Thiamine HCl 100 mg DAILY IM ; Start 09/08/18 at 09:00; Stop 09/08/18 at 12:15; Status DC Lorazepam (Ativan) 2 mg PRN Q1HR PRN PO For CIWA 8-14 Last administered on 09/07at 14:45; Start 09/07/18 at 14:30 Lorazepam (Ativan) 2 mg PRN Q1HR PRN IV For CIWA 8-14 Last administered on 09/09at 18:39; Start 09/07/18 at 14:30 Haloperidol Lactate (Haldol Inj) 5 mg PRN Q4HRS PRN IVP Hallucinatns,Confusn, Delirium; Start 09/07/18 at 14:30 Diphenhydramine HCl (Benadryl) 25 mg PRN Q15MIN PRN IVP EPS symptoms 2'Haldol admin; Start 09/07/18 at 14:30 Clonidine HCl (Catapres) 0.1 mg PRN Q1HR PRN PO SBP > 180 or DBP > 100, MRX3; Start 09/07/18 at 14:30 Fluoxetine HCl (PROzac) 60 mg DAILY PO Last administered on 09/10/18at 09:05; Start 09/08/18 at 09:00 Pantoprazole Sodium (Protonix) 40 mg DAILYAC PO Last administered on 09/10/18at 09:05; Start 09/08/18 at 07:30 Quetiapine Fumarate (SEROquel) 100 mg QHS PO Last administered on 09/09/18at 20: 55; Start 09/07/18 at 21:00 Gabapentin (Neurontin) 300 mg TID PO Last administered on 09/10/18at 09:05; Start 09/07/18 at 21:00 Multivitamins 10 ml/Thiamine HCl 100 mg/Folic Acid 1 mg/Sodium Chloride 1,011.2 ml @ 100 mls/ hr DAILY IV Last administered on 09/10/18at 09:06; Start at 13:00; Stop 09/12/18 at 19:07 Multivitamins (Thera M Plus) 1 tab DAILY PO ; Start 09/13/18 at 09:00 Folic Acid (Folic Acid) 1 mg DAILY PO ; Start 09/13/18 at 09:00 Thiamine HCl 100 mg/Dextrose 51 ml @ 100 mls/hr DAILY IV ; Start 09/09/18 at 09 :00; Stop 09/13/18 at 09:31; Status UNV Lorazepam (Ativan) 2 mg Q6H PO Last administered on 09/09/18at 12:16; Start at 12:15; Stop 09/09/18 at 18:16; Status DC Thiamine Mononitrate (Vitamin B-1) 100 mg DAILY PO ; Start 09/13/18 at 09:00 Active Scripts Active Reported Omeprazole 20 Mg Tablet.dr 1 Tab PO DAILY Fluoxetine Hcl 40 Mg Capsule 60 Mg PO DAILY Gabapentin 600 Mg Tablet 300 Mg PO TID Seroquel (Quetiapine Fumarate) 100 Mg Tablet 1 Tab PO QHS Vitals/I & O Vital Sign - Last 24 Hours 09/09/18 09/09/18 09/09/18 09/09/18 15:12 19:05 20:00 23:21 Temp 98.3 98.0 98.7 98.3 98.0 98.7 Pulse 75 82 78 Resp 17 16 16 B/P (MAP) 119/80 (93) 124/80 (95) 108/62 (77) Pulse Ox 98 98 99 O2 Delivery Room Air Room Air Room Air Room Air 09/10/18 09/10/18 09/10/18 09/10/18 03:40 07:40 08:00 11:02 Temp 98.1 98.0 98.8 98.1 98.0 98.8 Pulse 75 73 77 Resp 16 16 20 B/P (MAP) 99/67 (78) 103/69 (80) 113/78 (90) Pulse Ox 95 96 97 O2 Delivery Room Air Room Air Room Air Room Air Intake and Output 09/09/18 09/09/18 09/10/18 14:59 22:59 06:59 Intake Total 940 ml 740 ml Balance 940 ml 740 ml WHITNEY GASTON MD Sep 10, 2018 11:11
[2018-09-10 15:29] VITALS: BP 127/84
--- NOTE | 2018-09-10 16:32 | PDOC3 ---
Discharge Summary Date of Admission: Sep 06, 2018 Date of Discharge: Sep 10, 2018 Follow-Up: 3-5 days Admitting Diagnosis comment: DISCHARGE DX Assessment/Plan A/P: SEVERE ALCOHOL DEPENDENCY Alcohol withdrawal - will treat with banana bag x5, CIWA scale, PAT team to see CHUY - vasomotor nephropathy - IVF Elevated gap anion acidosis secondary to alcoholism - Hypokalemia - will give Elevated LFTs and a drinker - will monitor severe alcohol abuse x 9 yrs dehydration CKD STAGE 3-4 INTRACTABLE [employer] just discharged 3 days ago FEN - KCL, General diet PPX - SCDs iv fluid support FULL CODE Inpatient for ETOH withdrawal at least 2 midnights. NEPHROLOGY CONSULT ATTEND AA DAILY, NEEDS A SPONSOR 32 MIN PT EXAM, D/C PLANNING TIME CHART REVIEW > 50% of time spent with exam, chart review, pt care coordination Vitals Vitals Vital Signs Date Time Temp Pulse Resp B/P (MAP) Pulse Ox O2 Delivery O2 Flow Rate FiO2 09/10/18 11:02 98.8 77 20 113/78 (90) 97 Room Air 98.8 Physical Exam General: Alert, Oriented X3, Cooperative, No acute distress, mild distress, moderate distress Heart: Regular rate, Normal S1, Normal S2, No murmurs Lungs: Clear Abdomen: Normal bowel sounds, Soft, No tenderness, No hepatosplenomegaly, No masses Extremities: No clubbing, No cyanosis, No edema, Normal pulses, No tenderness/ swelling Skin: No rashes, No breakdown, No significant lesion Labs LABS SEX: F EXAM STATUS: ADM IN ORD. PHYSICIAN: WHITNEY GASTON MD REASON: PAIN, VOMITING (ATE LUNCH DO AFTER 6 PM) PROCEDURE: ABDOMEN COMPLETE Abdominal ultrasound, 09/09/2018: HISTORY: Abdominal pain, chronic alcohol abuse, nausea and vomiting The gallbladder is within normal limits in size. There is no sonographic evidence of cholelithiasis. The gallbladder wall is not thickened. The common hepatic duct is of normal size measuring 2-3 mm. The hepatic echogenicity is increased suggesting fatty change. No hepatic mass is seen. The spleen is within normal limits in size. Limited views of the pancreas show no abnormality. The abdominal aorta and inferior vena cava are unremarkable. No renal abnormality is detected. No free fluid is evident in the abdomen. IMPRESSION: 1. Increased hepatic echogenicity most commonly due to hepatic steatosis. 2. No acute abdominal abnormality is detected. Electronically signed by: Carl Gauthier MD (09/10/2018 8:02 AM) [facility] FINAL DIAGNOSIS Problems Medical Problems: (1) Alcoholism Status: Acute (2) Delirium tremens Status: Acute (3) Hypokalemia Status: Acute (4) Renal insufficiency Status: Acute Brief Hospital Course Ms. Mena is a 48 old [sex] who presented with [ ALCOHOL WITHDRAWAL ] CONDITION AT DISCHARGE: Improved Discharge Medications Current Medications Sodium Chloride 1,000 ml @ 1,000 mls/hr Q1H IV ; Start 09/07/18 at 07:00; Stop 09/07/18 at 07:00; Status DC Ondansetron HCl (Zofran) 4 mg 1X ONCE IV ; Start 09/07/18 at 07:00; Stop at 07:01; Status DC Multivitamins 10 ml/Thiamine HCl 100 mg/Folic Acid 1 mg/Sodium Chloride 1,011.2 ml @ 1,000 mls/ hr Q1H IV ; Start 09/07/18 at 07:00; Stop 09/07/18 at 07:00; Status DC Ondansetron HCl (Zofran Odt) 8 mg 1X ONCE PO Last administered on 09/07/18at 06 :52; Start 09/07/18 at 07:00; Stop 09/07/18 at 07:01; Status DC Multivitamins 10 ml/Thiamine HCl 100 mg/Folic Acid 1 mg/Sodium Chloride 1,011.2 ml @ 1,000.088 mls/hr 1X ONCE IV Last administered on 09/07/18at 09:49; Start 09/07/18 at 09:15; Stop 09/07/18 at 10:15; Status DC Lorazepam (Ativan) 1 mg 1X ONCE IV Last administered on 09/07/18at 10:40; Start 09/07/18 at 10:30; Stop 09/07/18 at 10:31; Status DC Potassium Chloride (Klor-Con) 40 meq 1X ONCE PO Last administered on at 10:39; Start 09/07/18 at 10:30; Stop 09/07/18 at 10:31; Status DC Sodium Chloride 1,000 ml @ 1,000 mls/hr 1X ONCE IV ; Start 09/07/18 at 10:30; Stop 09/07/18 at 11:29; Status DC Sodium Chloride 1,000 ml @ 1,000 mls/hr 1X ONCE IV Last administered on at 10:33; Start 09/07/18 at 10:30; Stop 09/07/18 at 11:29; Status DC Ondansetron HCl (Zofran) 4 mg PRN Q8HRS PRN IV NAUSEA/VOMITING; Start 09/07/18 at 11:30; Stop 09/08/18 at 11:29; Status DC Sodium Chloride 1,000 ml @ 150 mls/hr Q6H40M IV Last administered on at 14:19; Start 09/07/18 at 11:25; Stop 09/07/18 at 14:54; Status DC Potassium Chloride/Water 100 ml @ 100 mls/hr Q1H IV Last administered on at 13:00; Start 09/07/18 at 12:00; Stop 09/07/18 at 13:59; Status DC Potassium Chloride 40 meq/ Dextrose 1,020 ml @ 75 mls/hr [id number] IV Last administered on 09/10/18at 04:48; Start 09/07/18 at 15:00 Multivitamins (Thera M Plus) 1 tab DAILY PO Last administered on 09/08/18at 09: 13; Start 09/08/18 at 09:00; Stop 09/08/18 at 12:15; Status DC Folic Acid (Folic Acid) 1 mg DAILY PO Last administered on 09/08/18at 09:13; Start 09/08/18 at 09:00; Stop 09/08/18 at 12:14; Status DC Thiamine HCl 100 mg DAILY IM ; Start 09/08/18 at 09:00; Stop 09/08/18 at 12:15; Status DC Lorazepam (Ativan) 2 mg PRN Q1HR PRN PO For CIWA 8-14 Last administered on 09/07at 14:45; Start 09/07/18 at 14:30 Lorazepam (Ativan) 2 mg PRN Q1HR PRN IV For CIWA 8-14 Last administered on 09/09at 18:39; Start 09/07/18 at 14:30 Haloperidol Lactate (Haldol Inj) 5 mg PRN Q4HRS PRN IVP Hallucinatns,Confusn, Delirium; Start 09/07/18 at 14:30 Diphenhydramine HCl (Benadryl) 25 mg PRN Q15MIN PRN IVP EPS symptoms 2'Haldol admin; Start 09/07/18 at 14:30 Clonidine HCl (Catapres) 0.1 mg PRN Q1HR PRN PO SBP > 180 or DBP > 100, MRX3; Start 09/07/18 at 14:30 Fluoxetine HCl (PROzac) 60 mg DAILY PO Last administered on 09/10/18at 09:05; Start 09/08/18 at 09:00 Pantoprazole Sodium (Protonix) 40 mg DAILYAC PO Last administered on 09/10/18at 09:05; Start 09/08/18 at 07:30 Quetiapine Fumarate (SEROquel) 100 mg QHS PO Last administered on 09/09/18at 20: 55; Start 09/07/18 at 21:00 Gabapentin (Neurontin) 300 mg TID PO Last administered on 09/10/18at 14:26; Start 09/07/18 at 21:00 Multivitamins 10 ml/Thiamine HCl 100 mg/Folic Acid 1 mg/Sodium Chloride 1,011.2 ml @ 100 mls/ hr DAILY IV Last administered on 09/10/18at 09:06; Start at 13:00; Stop 09/12/18 at 19:07 Multivitamins (Thera M Plus) 1 tab DAILY PO ; Start 09/13/18 at 09:00 Folic Acid (Folic Acid) 1 mg DAILY PO ; Start 09/13/18 at 09:00 Thiamine HCl 100 mg/Dextrose 51 ml @ 100 mls/hr DAILY IV ; Start 09/09/18 at 09 :00; Stop 09/13/18 at 09:31; Status UNV Lorazepam (Ativan) 2 mg Q6H PO Last administered on 09/09/18at 12:16; Start at 12:15; Stop 09/09/18 at 18:16; Status DC Thiamine Mononitrate (Vitamin B-1) 100 mg DAILY PO ; Start 09/13/18 at 09:00 Active Scripts Active Reported Omeprazole 20 Mg Tablet.dr 1 Tab PO DAILY Fluoxetine Hcl 40 Mg Capsule 60 Mg PO DAILY Gabapentin 600 Mg Tablet 300 Mg PO TID Seroquel (Quetiapine Fumarate) 100 Mg Tablet 1 Tab PO QHS Vital Signs Vital Signs Date Time Temp Pulse Resp B/P (MAP) Pulse Ox O2 Delivery O2 Flow Rate FiO2 09/10/18 15:29 99.2 85 18 127/84 (98) 98 Room Air 99.2 Labs Laboratory Tests Test 09/09/18 04:00 09/09/18 04:40 09/10/18 06:00 White Blood Count 5.1 x10^3/uL (4.0-11.0) 4.4 x10^3/uL (4.0-11.0) Red Blood Count 3.55 x10^6/uL (3.50-5.40) 3.81 x10^6/uL (3.50-5.40) Hemoglobin 11.8 g/dL (12.0-15.5) 12.5 g/dL (12.0-15.5) Hematocrit 35.2 % (36.0-47.0) 37.5 % (36.0-47.0) Mean Corpuscular Volume 99 fL (79-100) 99 fL (79-100) Mean Corpuscular Hemoglobin 33 pg (25-35) 33 pg (25-35) Mean Corpuscular Hemoglobin Concent 34 g/dL (31-37) 34 g/dL (31-37) Red Cell Distribution Width 13.8 % (11.5-14.5) 13.9 % (11.5-14.5) Platelet Count 197 x10^3/uL (140-400) 200 x10^3/uL (140-400) Neutrophils (%) (Auto) 52 % (31-73) 49 % (31-73) Lymphocytes (%) (Auto) 41 % (24-48) 41 % (24-48) Monocytes (%) (Auto) 6 % (0-9) 8 % (0-9) Eosinophils (%) (Auto) 2 % (0-3) 2 % (0-3) Basophils (%) (Auto) 0 % (0-3) 0 % (0-3) Neutrophils # (Auto) 2.6 x10^3uL (1.8-7.7) 2.2 x10^3uL (1.8-7.7) Lymphocytes # (Auto) 2.1 x10^3/uL (1.0-4.8) 1.8 x10^3/uL (1.0-4.8) Monocytes # (Auto) 0.3 x10^3/uL (0.0-1.1) 0.3 x10^3/uL (0.0-1.1) Eosinophils # (Auto) 0.1 x10^3/uL (0.0-0.7) 0.1 x10^3/uL (0.0-0.7) Basophils # (Auto) 0.0 x10^3/uL (0.0-0.2) 0.0 x10^3/uL (0.0-0.2) Sodium Level 137 mmol/L (136-145) 136 mmol/L (136-145) Potassium Level 3.9 mmol/L (3.5-5.1) 3.7 mmol/L (3.5-5.1) Chloride Level 101 mmol/L (98-107) 99 mmol/L (98-107) Carbon Dioxide Level 26 mmol/L (21-32) 27 mmol/L (21-32) Anion Gap 10 (6-14) 10 (6-14) Blood Urea Nitrogen 8 mg/dL (7-20) 10 mg/dL (7-20) Creatinine 1.2 mg/dL (0.6-1.0) 0.8 mg/dL (0.6-1.0) Estimated GFR (Cockcroft-Gault) 47.7 76.2 BUN/Creatinine Ratio 7 (6-20) 13 (6-20) Glucose Level 106 mg/dL (70-99) 109 mg/dL (70-99) Calcium Level 8.8 mg/dL (8.5-10.1) 9.4 mg/dL (8.5-10.1) Total Bilirubin 0.3 mg/dL (0.2-1.0) 0.2 mg/dL (0.2-1.0) Aspartate Amino Transf (AST/SGOT) 29 U/L (15-37) 26 U/L (15-37) Alanine Aminotransferase (ALT/SGPT) 37 U/L (14-59) 32 U/L (14-59) Alkaline Phosphatase 78 U/L (46-116) 62 U/L (46-116) Total Protein 6.9 g/dL (6.4-8.2) 7.5 g/dL (6.4-8.2) Albumin 3.1 g/dL (3.4-5.0) 3.4 g/dL (3.4-5.0) Albumin/Globulin Ratio 0.8 (1.0-1.7) 0.8 (1.0-1.7) Phosphorus Level 4.3 mg/dL (2.6-4.7) Magnesium Level 1.7 mg/dL (1.8-2.4) Laboratory Tests Test 09/10/18 06:00 White Blood Count 4.4 x10^3/uL (4.0-11.0) Red Blood Count 3.81 x10^6/uL (3.50-5.40) Hemoglobin 12.5 g/dL (12.0-15.5) Hematocrit 37.5 % (36.0-47.0) Mean Corpuscular Volume 99 fL (79-100) Mean Corpuscular Hemoglobin 33 pg (25-35) Mean Corpuscular Hemoglobin Concent 34 g/dL (31-37) Red Cell Distribution Width 13.9 % (11.5-14.5) Platelet Count 200 x10^3/uL (140-400) Neutrophils (%) (Auto) 49 % (31-73) Lymphocytes (%) (Auto) 41 % (24-48) Monocytes (%) (Auto) 8 % (0-9) Eosinophils (%) (Auto) 2 % (0-3) Basophils (%) (Auto) 0 % (0-3) Neutrophils # (Auto) 2.2 x10^3uL (1.8-7.7) Lymphocytes # (Auto) 1.8 x10^3/uL (1.0-4.8) Monocytes # (Auto) 0.3 x10^3/uL (0.0-1.1) Eosinophils # (Auto) 0.1 x10^3/uL (0.0-0.7) Basophils # (Auto) 0.0 x10^3/uL (0.0-0.2) Sodium Level 136 mmol/L (136-145) Potassium Level 3.7 mmol/L (3.5-5.1) Chloride Level 99 mmol/L (98-107) Carbon Dioxide Level 27 mmol/L (21-32) Anion Gap 10 (6-14) Blood Urea Nitrogen 10 mg/dL (7-20) Creatinine 0.8 mg/dL (0.6-1.0) Estimated GFR (Cockcroft-Gault) 76.2 BUN/Creatinine Ratio 13 (6-20) Glucose Level 109 mg/dL (70-99) Calcium Level 9.4 mg/dL (8.5-10.1) Phosphorus Level 4.3 mg/dL (2.6-4.7) Magnesium Level 1.7 mg/dL (1.8-2.4) Total Bilirubin 0.2 mg/dL (0.2-1.0) Aspartate Amino Transf (AST/SGOT) 26 U/L (15-37) Alanine Aminotransferase (ALT/SGPT) 32 U/L (14-59) Alkaline Phosphatase 62 U/L (46-116) Total Protein 7.5 g/dL (6.4-8.2) Albumin 3.4 g/dL (3.4-5.0) Albumin/Globulin Ratio 0.8 (1.0-1.7) Allergies Allergies Coded Allergies Type Severity Reaction Last Updated Verified No Known Drug Allergies 09/03/18 No Disposition/Orders: D/C to Home Patient Instructions D/C PLANNING 33 MIN WHITNEY GASTON MD Sep 10, 2018 16:32
[2018-09-10] MEDS ORDERED: FOLI1TAB16 PO (16:34)
[2018-09-10] MEDS ORDERED: MULT1TAB90 PO (16:34)
[2018-09-10] MEDS ORDERED: THIA100T22 PO (16:34)
--- NOTE | 2018-09-10 16:36 | DISCH ---
DISCHARGE INSTRUCTIONS Condition on Discharge Condition on Discharge: Guarded Activity After Discharge Activity Instructions for Disc: Activity as tolerated Exercise Instruction after Dis: Walk 10 min, 3 x per day Driving Instructions after Dis: Do not drive Weight Bearing Status after Di: As tolerated Diet after Discharge Diet after Discharge: Regular Checks after Discharge Checks after discharge: Check blood press - daily Contacting the DR. after DC Call your doctor for: If your condition worsens Treatment/Equipment after DC Adaptive Equipment Issued: None WHITNEY GASTON MD Sep 10, 2018 16:36
--- NOTE | 2018-09-10 19:33 | NUR ---
Discharge Note: EDDIE KEENE Discharge instructions and discharge home medications reviewed with patient and a copy given. All questions have been answered and understanding verbalized. The following instructions and handouts were given: Alcohol intoxication Alcohol withdrawal Attend AA meetings Abstain from alcohol FF up with PCP in a week Discontinued lines and drains: peripheral IV intact, patient tolerated removal, no complications noted Patient discharged to home with self care via wheelchair. Patient left the unit at 1810.
[2018-09-13] MEDS ORDERED: MULTIVITAMIN with MINERAL TABLET. PO SCH (09:00)
[2018-09-13] MEDS ORDERED: THIAMINE 100 MG TABLET. PO SCH (09:00)
[2018-09-13] MEDS ORDERED: FOLIC ACID 1 MG TABLET. PO SCH (09:00)
[2018-09-21] MEDS ORDERED: QUET100T PO (13:11)
== END 2018-09-10 18:24 | disposition home or self-care (01) | DRG 640 ==
LOC: ER 06:01 → 6 SOUTH 10:46
PROVIDERS: ADMIT Internal Medicine; ATTEND Internal Medicine
DX: E86.0 Dehydration (principal); N17.0 Acute kidney failure with tubular necrosis; F10.231 Alcohol dependence with withdrawal delirium; N18.4 Chronic kidney disease, stage 4 (severe); E87.6 Hypokalemia; E87.2 Acidosis; K76.0 Fatty (change of) liver, not elsewhere classified; F17.210 Nicotine dependence, cigarettes, uncomplicated; F41.9 Anxiety disorder, unspecified; Z79.899 Other long term (current) drug therapy
CPT/HCPCS: 36415; 76700; 80048; 80053; 80307; 82962; 83690; 83735; 84100; 85025; 96365; 96366; G0480; J2060; J3480; J7030; Q0162; 99285-25

== ENCOUNTER 2018-09-15 04:30 | Inpatient (IN) | payer SELFPAY ==
[~2018-09-15] VITALS: Ht 162.6 cm; Wt 59.6 kg
[~2018-09-15 04:30] MED LIST changes: +FLUO40CA2 PO; +FOLI1TAB16 PO; +GABA600T7 PO; +MULT1TAB90 PO; +OMEP20TA8 PO; +QUET100T4 PO; +THIA100T22 PO
[2018-09-15] MEDS ORDERED: IV NORMAL SALINE 1000ML BAG 1,000 ML IV ONE (05:00)
--- NOTE | 2018-09-15 05:36 | PHYS DOC ---
Past Medical History Past Medical History: Other Additional Past Medical Histor: etoh abuse. pt poor historian (DANE BOLDEN MD) Past Surgical History: Other Additional Past Surgical Histo: unknown (DANE BOLDEN MD) Alcohol Use: Heavy Drug Use: None (DANE BOLDEN MD) Adult General Chief Complaint Chief Complaint: ALCOHOL INTOXICATION HPI HPI Patient is a 48 year old F WHO P/W CC OF ALCOHOL PROBLEM. SHE STATES SHE IS GOING THROUGH WITHDRAWALS . HER LAST DRINK WAS EARLIER TODAY SHE DOES NOT REMEMBER EXACTLY WHEN. SHE WAS HERE TWICE ALREADY THIS WEEK HAD ACUTE KIDNEY INJURY RELATED TO VOLUME DOWN FROM ALCOHOL ABUSE ETC. SHE WAS SUPPOSED TO GO TO AA BUT HASNT YET. SHE COMPLAINS OF ALL OVER BODY PAIN. (DANE BOLDEN MD) Review of Systems Review of Systems Constitutional: Denies fever or chills [] Eyes: Denies change in visual acuity, redness, or eye pain [] Cardiovascular: No additional information not addressed in HPI [] GI: Denies abdominal pain REPORTS NAUSEA AND VOMITING Musculoskeletal: Integument: Denies rash or skin lesions [] Neurologic:REPORTS H/A AND TOTAL BODY PAIN All other systems were reviewed and found to be within normal limits, except as documented in this note. (DANE BOLDEN MD) Current Medications Current Medications Current Medications Medications (Trade) Dose Ordered Sig/Jakbo Start Time Stop Time Status Last Admin Dose Admin Lorazepam (Ativan) 2 mg 1X ONCE 09/15/18 05:00 09/15/18 05:01 DC 09/15/18 06:48 2 MG Potassium Chloride/Sodium Chloride 1,000 ml @ 75 mls/hr 1X ONCE 09/15/18 08:15 09/15/18 21:34 09/15/18 08:12 75 MLS/HR Sodium Chloride 1,000 ml @ 1,000 mls/hr 1X ONCE 09/15/18 05:00 09/15/18 05:59 DC 09/15/18 05:00 1,000 MLS/HR (BIANCA LOPEZ MD) Allergies Allergies Allergies Coded Allergies Type Severity Reaction Last Updated Verified No Known Drug Allergies 09/03/18 No (BIANCA LOPEZ MD) Physical Exam Physical Exam Constitutional: Well developed, CHRONICALLY ILL APPEARING, INTERMITTENTLY TREMULOUS BUT APPEARS TO BE ABLE TO SIGN REGISTRATION FORM WITH LITTLE TO NO TREMOR AT ALL HENT: Normocephalic, atraumatic, bilateral external ears normal, oropharynx DRY, no oral exudates, nose normal. [] Eyes: PERRLA, EOMI, conjunctiva normal, no discharge. [] Neck: Normal range of motion, no tenderness, supple, no stridor. [] CardiovascularMILD TACHY Lungs & Thorax: Bilateral breath sounds clear to auscultation [] Abdomen: Bowel sounds normal, soft, no tenderness, no masses, no pulsatile masses. [] Skin: Warm, dry, no erythema, no rash. [] Back: No tenderness, no CVA tenderness. [] Extremities: No tenderness, no cyanosis, no clubbing, ROM intact, no edema. [] Neurologic: Alert and oriented X 3, normal motor function, normal sensory function, no focal deficits noted. [] MILD TREMOR NOTED Psychologic: Affect normal, judgement normal, mood normal. [] (DANE BOLDEN MD) Current Patient Data Vital Signs Vital Signs Date Time Temp Pulse Resp B/P (MAP) Pulse Ox O2 Delivery O2 Flow Rate FiO2 09/15/18 08:35 108 22 118/72 (87) 100 Nasal Cannula 2.0 09/15/18 04:39 98.6 98.6 (BIANCA LOPEZ MD) Lab Values Laboratory Tests Test 09/15/18 05:14 09/15/18 06:23 09/15/18 07:38 POC Urine HCG, Qualitative Hcg negative (Negative) White Blood Count 9.9 x10^3/uL (4.0-11.0) Red Blood Count 4.21 x10^6/uL (3.50-5.40) Hemoglobin 14.1 g/dL (12.0-15.5) Hematocrit 39.8 % (36.0-47.0) Mean Corpuscular Volume 95 fL (79-100) Mean Corpuscular Hemoglobin 34 pg (25-35) Mean Corpuscular Hemoglobin Concent 36 g/dL (31-37) Red Cell Distribution Width 13.9 % (11.5-14.5) Platelet Count 406 x10^3/uL (140-400) H Neutrophils (%) (Auto) 58 % (31-73) Lymphocytes (%) (Auto) 35 % (24-48) Monocytes (%) (Auto) 6 % (0-9) Eosinophils (%) (Auto) 0 % (0-3) Basophils (%) (Auto) 1 % (0-3) Neutrophils # (Auto) 5.7 x10^3uL (1.8-7.7) Lymphocytes # (Auto) 3.5 x10^3/uL (1.0-4.8) Monocytes # (Auto) 0.6 x10^3/uL (0.0-1.1) Eosinophils # (Auto) 0.0 x10^3/uL (0.0-0.7) Basophils # (Auto) 0.1 x10^3/uL (0.0-0.2) Ethyl Alcohol Level < 10 mg/dL (0-10) Sodium Level 139 mmol/L (136-145) Potassium Level 3.1 mmol/L (3.5-5.1) L Chloride Level 95 mmol/L (98-107) L Carbon Dioxide Level 29 mmol/L (21-32) Anion Gap 15 (6-14) H Blood Urea Nitrogen 11 mg/dL (7-20) Creatinine 1.8 mg/dL (0.6-1.0) H Estimated GFR (Cockcroft-Gault) 29.9 BUN/Creatinine Ratio 6 (6-20) Glucose Level 129 mg/dL (70-99) H Calcium Level 9.6 mg/dL (8.5-10.1) Total Bilirubin 0.5 mg/dL (0.2-1.0) Aspartate Amino Transferase (AST) 43 U/L (15-37) H Alanine Aminotransferase (ALT) 45 U/L (14-59) Alkaline Phosphatase 89 U/L (46-116) Total Protein 8.4 g/dL (6.4-8.2) H Albumin 4.2 g/dL (3.4-5.0) Albumin/Globulin Ratio 1.0 (1.0-1.7) Laboratory Tests 09/15/18 06:23 Laboratory Tests 09/15/18 07:38 (BIANCA LOPEZ MD) EKG EKG [] (DANE BOLDEN MD) Radiology/Procedures Radiology/Procedures [] (DANE BOLDEN MD) Course & Med Decision Making Course & Med Decision Making Pertinent Labs and Imaging studies reviewed. (See chart for details) 48 YO F HX OF ALCOHOL ABUSE, AND W/D, DENIES SEIZURE HISTORY P/W COMPLAINT OF ETOH WITHDRAWAL, SHAKY TREMOR. AWAITING LABS AND RE-EVAL. TWO ADMITS THIS WEEK ALREADY MAY BENEFIT FROM PAT CONSULT S/O TO JOHN PENDING LABS AND RE-EVAL [] (DANE BOLDEN MD) Course & Med Decision Making Labs show K+ 3.1, Cr 1.8. On previous discharge her Cr was 0.7. Admit for hypokalemia and CHUY to Dr. Gupta. (BIANCA LOPEZ MD) Dragon Disclaimer Dragon Disclaimer This electronic medical record was generated, in whole or in part, using a voice recognition dictation system. (DANE BOLDEN MD) Departure Departure Impression: Primary Impression: Hypokalemia Additional Impression: CHUY (acute kidney injury) Disposition: 09 ADMITTED INPATIENT Admitting Physician: My Gupta (BIANCA LOPEZ MD) Condition: STABLE Referrals: NO PCP (PCP) Problem Qualifiers DANE BOLDEN MD Sep 15, 2018 05:36 BIANCA LOPEZ MD Sep 15, 2018 08:50
[2018-09-15 06:38] LABS: BASO # 0.1 x10^3/uL (0.0-0.2); BASO % 1 % (0-3); EOS % 0 % (0-3); HEMATOCRIT 39.8 % (36.0-47.0); HEMOGLOBIN 14.1 g/dL (12.0-15.5); LYMPH # 3.5 x10^3/uL (1.0-4.8); LYMPH % 35 % (24-48); MEAN CORPUSCULAR HEMOGLOBIN 34 pg (25-35); MEAN CORPUSCULAR HGB CONC 36 g/dL (31-37); MEAN CORPUSCULAR VOLUME 95 fL (79-100); MONO # 0.6 x10^3/uL (0.0-1.1); MONO % 6 % (0-9); NEUT # 5.7 x10^3uL (1.8-7.7); NEUT % 58 % (31-73); PLATELET COUNT 406 x10^3/uL (140-400); RED BLOOD COUNT 4.21 x10^6/uL (3.50-5.40); RED CELL DISTRIBUTION WIDTH 13.9 % (11.5-14.5); WHITE BLOOD COUNT 9.9 x10^3/uL (4.0-11.0)
[2018-09-15 07:53] LABS: CALCIUM 9.6 mg/dL (8.5-10.1); CREATININE 1.8 mg/dL (0.6-1.0); GFR 29.9; POTASSIUM 3.1 mmol/L (3.5-5.1)
[2018-09-15 07:59] LABS: ALBUMIN 4.2 g/dL (3.4-5.0); TOTAL BILIRUBIN 0.5 mg/dL (0.2-1.0); TOTAL PROTEIN 8.4 g/dL (6.4-8.2)
[2018-09-15] MEDS ORDERED: POTASSIUM CL 40MEQ IN 0.9%NACL 1,000 ML IV ONE (08:15)
[2018-09-15 10:45] VITALS: BP 104/66
[2018-09-15] MEDS: LORazepam 1 MG TABLET PO SCH ×3 (11:49→23:15)
--- NOTE | 2018-09-15 11:55 | NUR ---
Patient vomited - notified the doctor. Doctor said he will prescribe Zofran IVP (see orders & eMar).
[2018-09-15] MEDS ORDERED: ONDANSETRON PF 4 MG/2 ML VIAL. IV PRN (12:15)
--- NOTE | 2018-09-15 13:08 | HP ---
ADMIT DATE: 09/15/2018 CHIEF COMPLAINT: Alcohol intoxication. HISTORY OF PRESENT ILLNESS: The patient is a pleasant 48-year-old white female who drinks too much. She states she drinks vodka. She complains of shaking. She has been going through withdrawals. She had her last drink yesterday afternoon. While in the ER, she was noted to have an acute kidney injury and hypokalemia with a creatinine of 1.8 and potassium of 3.1 respectively. I have discussed the case with ER physician. We are going to admit the patient and give her some IV fluids and alcohol withdrawal protocol and replace her potassium. It should be noted that she rates her symptoms at 9/10. Describes as agonizing and worst with movement. PAST MEDICAL HISTORY: Alcoholism. Neuropathy, depression, anxiety, and GERD. ALLERGIES: None. FAMILY HISTORY: Alcoholism. SOCIAL HISTORY: She drinks a lot of vodka. Does not smoke or take drugs. MEDICATIONS: Reviewed. She is on gabapentin, fluoxetine, Seroquel, omeprazole, folic acid, vitamins. REVIEW OF SYSTEMS: GENERAL: No history of weight change, weakness or fevers. SKIN: No bruising, hair changes or rashes. EYES: No blurred, double or loss of vision. NOSE AND THROAT: No history of nosebleeds, hoarseness or sore throat. HEART: No history of palpitations, chest pain or shortness of breath on exertion. LUNGS: Denies cough, hemoptysis, wheezing or shortness of breath. GASTROINTESTINAL: Denies changes in appetite, nausea, vomiting, diarrhea or constipation. GENITOURINARY: No history of frequency, urgency, hesitancy or nocturia. NEUROLOGIC: She complains of shaking. PSYCHIATRIC: No history of panic, anxiety or depression. ENDOCRINE: No history of heat or cold intolerance, polyuria or polydipsia. EXTREMITIES: Denies muscle weakness, joint pain, pain on walking or stiffness. PHYSICAL EXAMINATION: VITAL SIGNS: Temperature afebrile, pulse 110, respirations 18, blood pressure 117/69. GENERAL: She is alert, weak, pleasant, flat affect. HEART: Normal S1, S2. LUNGS: Clear. ABDOMEN: Soft. EXTREMITIES: Trace edema. SKIN: No rashes. ENDOCRINE: No thyromegaly. LYMPHATICS: No cervical nodes. HEMATOPOIETIC: No bruising. PSYCHIATRIC: She is depressed. LABORATORY DATA: Hematology normal other than a platelet count of 406. Electrolytes, sodium 139, potassium 3.1, chloride 95, bicarbonate 29, BUN 11, creatinine 1.8, glucose 129. ASSESSMENT AND PLAN: Alcohol withdrawal, hypokalemia and acute kidney injury. The patient has been admitted. We will start IV banana bag, alcohol withdrawal protocol. DVT prophylaxis. Home meds. Full code. PT, OT, frequent labs. GAGE CONNOR DO DR: HERMINIA/alexis JOB#: [id number] / [id number]
[2018-09-15 14:45] VITALS: BP 106/72
[2018-09-15] MEDS ORDERED: LORazepam 1 MG TABLET PO PRN (14:45)
[2018-09-15] MEDS ORDERED: HALOPERIDOL LACTATE 5 MG/ML VIAL. IVP PRN (14:45)
--- NOTE | 2018-09-15 15:13 | NUR ---
SW following pt for anticipated dc needs. Chart reviewed and DW RN. Pt lives at home. Pt is seen by PAT team and has agreed to start ICM program. A rep from [facility] will come tomorrow to enroll her in services. Pt was also given resources on previous admission as well. Will continue to evaluate other dc needs.
[2018-09-15 19:00] VITALS: BP 100/60
[2018-09-15 23:51] VITALS: BP 103/67
[2018-09-16 03:06] VITALS: BP 91/51
[2018-09-16 04:19] LABS: BASO % 0 % (0-3); EOS % 1 % (0-3); HEMATOCRIT 35.3 % (36.0-47.0); HEMOGLOBIN 12.2 g/dL (12.0-15.5); LYMPH # 1.9 x10^3/uL (1.0-4.8); LYMPH % 38 % (24-48); MEAN CORPUSCULAR HEMOGLOBIN 34 pg (25-35); MEAN CORPUSCULAR HGB CONC 35 g/dL (31-37); MEAN CORPUSCULAR VOLUME 97 fL (79-100); MONO # 0.5 x10^3/uL (0.0-1.1); MONO % 11 % (0-9); NEUT # 2.6 x10^3uL (1.8-7.7); NEUT % 50 % (31-73); PLATELET COUNT 280 x10^3/uL (140-400); RED BLOOD COUNT 3.65 x10^6/uL (3.50-5.40); RED CELL DISTRIBUTION WIDTH 13.9 % (11.5-14.5); WHITE BLOOD COUNT 5.1 x10^3/uL (4.0-11.0)
[2018-09-16 04:39] LABS: CALCIUM 8.7 mg/dL (8.5-10.1); CREATININE 1.9 mg/dL (0.6-1.0); GFR 28.1; POTASSIUM 3.2 mmol/L (3.5-5.1)
[2018-09-16 07:20] VITALS: BP 106/76
[2018-09-16] MEDS ORDERED: MULTIVIT INFUSN,ADULT 4,VIT K 10 ML, THIAMINE INJ 100 MG, FOLIC ACID INJ 1 MG in IV NOR... IV SCH ×2 (09:00)
[2018-09-16 11:20] VITALS: BP 101/68
[2018-09-16] MEDS ORDERED: IV NORMAL SALINE 1000ML BAG 1,000 ML IV ONE (12:45)
--- NOTE | 2018-09-16 12:57 | PDOC ---
PROGRESS NOTES Chief Complaint Chief Complaint Alcohol withdrawal, whout delirium hypokalemia and acute kidney injury. anorexia, History of Present Illness History of Present Illness cont IV fluid banana bag little UO, will increase IV fluid Cr. up, check UA, US, conslt renal Vitals Vitals Vital Signs Date Time Temp Pulse Resp B/P (MAP) Pulse Ox O2 Delivery O2 Flow Rate FiO2 09/16/18 11:20 98.4 91 18 101/68 (79) 98 Nasal Cannula 2.0 98.4 Physical Exam Physical Exam + asterixis, + nystagmus, weakness with hand str. poorly able to walk General: Alert, Oriented X3 Heart: Regular rate Lungs: Clear Extremities: No cyanosis Skin: No rashes Labs LABS Laboratory Tests Test 09/16/18 03:30 White Blood Count 5.1 x10^3/uL (4.0-11.0) Red Blood Count 3.65 x10^6/uL (3.50-5.40) Hemoglobin 12.2 g/dL (12.0-15.5) Hematocrit 35.3 % (36.0-47.0) Mean Corpuscular Volume 97 fL (79-100) Mean Corpuscular Hemoglobin 34 pg (25-35) Mean Corpuscular Hemoglobin Concent 35 g/dL (31-37) Red Cell Distribution Width 13.9 % (11.5-14.5) Platelet Count 280 x10^3/uL (140-400) Neutrophils (%) (Auto) 50 % (31-73) Lymphocytes (%) (Auto) 38 % (24-48) Monocytes (%) (Auto) 11 % (0-9) Eosinophils (%) (Auto) 1 % (0-3) Basophils (%) (Auto) 0 % (0-3) Neutrophils # (Auto) 2.6 x10^3uL (1.8-7.7) Lymphocytes # (Auto) 1.9 x10^3/uL (1.0-4.8) Monocytes # (Auto) 0.5 x10^3/uL (0.0-1.1) Eosinophils # (Auto) 0.0 x10^3/uL (0.0-0.7) Basophils # (Auto) 0.0 x10^3/uL (0.0-0.2) Sodium Level 138 mmol/L (136-145) Potassium Level 3.2 mmol/L (3.5-5.1) Chloride Level 101 mmol/L (98-107) Carbon Dioxide Level 27 mmol/L (21-32) Anion Gap 10 (6-14) Blood Urea Nitrogen 5 mg/dL (7-20) Creatinine 1.9 mg/dL (0.6-1.0) Estimated GFR (Cockcroft-Gault) 28.1 Glucose Level 106 mg/dL (70-99) Calcium Level 8.7 mg/dL (8.5-10.1) Assessment and Plan Assessmemt and Plan Problems Medical Problems: (1) CHUY (acute kidney injury) Status: Acute (2) Hypokalemia Status: Acute Comment Review of Relevant I have reviewed the following items siva (where applicable) has been applied. Labs Laboratory Tests Test 09/15/18 05:14 09/15/18 06:23 09/15/18 07:38 09/16/18 03:30 Bedside Urine HCG, Qualitative Hcg negative (Negative) White Blood Count 9.9 x10^3/uL (4.0-11.0) 5.1 x10^3/uL (4.0-11.0) Red Blood Count 4.21 x10^6/uL (3.50-5.40) 3.65 x10^6/uL (3.50-5.40) Hemoglobin 14.1 g/dL (12.0-15.5) 12.2 g/dL (12.0-15.5) Hematocrit 39.8 % (36.0-47.0) 35.3 % (36.0-47.0) Mean Corpuscular Volume 95 fL (79-100) 97 fL (79-100) Mean Corpuscular Hemoglobin 34 pg (25-35) 34 pg (25-35) Mean Corpuscular Hemoglobin Concent 36 g/dL (31-37) 35 g/dL (31-37) Red Cell Distribution Width 13.9 % (11.5-14.5) 13.9 % (11.5-14.5) Platelet Count 406 x10^3/uL (140-400) 280 x10^3/uL (140-400) Neutrophils (%) (Auto) 58 % (31-73) 50 % (31-73) Lymphocytes (%) (Auto) 35 % (24-48) 38 % (24-48) Monocytes (%) (Auto) 6 % (0-9) 11 % (0-9) Eosinophils (%) (Auto) 0 % (0-3) 1 % (0-3) Basophils (%) (Auto) 1 % (0-3) 0 % (0-3) Neutrophils # (Auto) 5.7 x10^3uL (1.8-7.7) 2.6 x10^3uL (1.8-7.7) Lymphocytes # (Auto) 3.5 x10^3/uL (1.0-4.8) 1.9 x10^3/uL (1.0-4.8) Monocytes # (Auto) 0.6 x10^3/uL (0.0-1.1) 0.5 x10^3/uL (0.0-1.1) Eosinophils # (Auto) 0.0 x10^3/uL (0.0-0.7) 0.0 x10^3/uL (0.0-0.7) Basophils # (Auto) 0.1 x10^3/uL (0.0-0.2) 0.0 x10^3/uL (0.0-0.2) Ethyl Alcohol Level < 10 mg/dL (0-10) Sodium Level 139 mmol/L (136-145) 138 mmol/L (136-145) Potassium Level 3.1 mmol/L (3.5-5.1) 3.2 mmol/L (3.5-5.1) Chloride Level 95 mmol/L (98-107) 101 mmol/L (98-107) Carbon Dioxide Level 29 mmol/L (21-32) 27 mmol/L (21-32) Anion Gap 15 (6-14) 10 (6-14) Blood Urea Nitrogen 11 mg/dL (7-20) 5 mg/dL (7-20) Creatinine 1.8 mg/dL (0.6-1.0) 1.9 mg/dL (0.6-1.0) Estimated GFR (Cockcroft-Gault) 29.9 28.1 BUN/Creatinine Ratio 6 (6-20) Glucose Level 129 mg/dL (70-99) 106 mg/dL (70-99) Calcium Level 9.6 mg/dL (8.5-10.1) 8.7 mg/dL (8.5-10.1) Total Bilirubin 0.5 mg/dL (0.2-1.0) Aspartate Amino Transf (AST/SGOT) 43 U/L (15-37) Alanine Aminotransferase (ALT/SGPT) 45 U/L (14-59) Alkaline Phosphatase 89 U/L (46-116) Total Protein 8.4 g/dL (6.4-8.2) Albumin 4.2 g/dL (3.4-5.0) Albumin/Globulin Ratio 1.0 (1.0-1.7) Laboratory Tests Test 09/16/18 03:30 White Blood Count 5.1 x10^3/uL (4.0-11.0) Red Blood Count 3.65 x10^6/uL (3.50-5.40) Hemoglobin 12.2 g/dL (12.0-15.5) Hematocrit 35.3 % (36.0-47.0) Mean Corpuscular Volume 97 fL (79-100) Mean Corpuscular Hemoglobin 34 pg (25-35) Mean Corpuscular Hemoglobin Concent 35 g/dL (31-37) Red Cell Distribution Width 13.9 % (11.5-14.5) Platelet Count 280 x10^3/uL (140-400) Neutrophils (%) (Auto) 50 % (31-73) Lymphocytes (%) (Auto) 38 % (24-48) Monocytes (%) (Auto) 11 % (0-9) Eosinophils (%) (Auto) 1 % (0-3) Basophils (%) (Auto) 0 % (0-3) Neutrophils # (Auto) 2.6 x10^3uL (1.8-7.7) Lymphocytes # (Auto) 1.9 x10^3/uL (1.0-4.8) Monocytes # (Auto) 0.5 x10^3/uL (0.0-1.1) Eosinophils # (Auto) 0.0 x10^3/uL (0.0-0.7) Basophils # (Auto) 0.0 x10^3/uL (0.0-0.2) Sodium Level 138 mmol/L (136-145) Potassium Level 3.2 mmol/L (3.5-5.1) Chloride Level 101 mmol/L (98-107) Carbon Dioxide Level 27 mmol/L (21-32) Anion Gap 10 (6-14) Blood Urea Nitrogen 5 mg/dL (7-20) Creatinine 1.9 mg/dL (0.6-1.0) Estimated GFR (Cockcroft-Gault) 28.1 Glucose Level 106 mg/dL (70-99) Calcium Level 8.7 mg/dL (8.5-10.1) Medications Current Medications Lorazepam (Ativan) 2 mg 1X ONCE IV Last administered on 09/15/18at 06:48; Start 09/15/18 at 05:00; Stop 09/15/18 at 05:01; Status DC Sodium Chloride 1,000 ml @ 1,000 mls/hr 1X ONCE IV Last administered on 09/15/18at 05:00; Start 09/15/18 at 05:00; Stop 09/15/18 at 05:59; Status DC Potassium Chloride/Sodium Chloride 1,000 ml @ 75 mls/hr 1X ONCE IV Last administered on 09/15/18at 08:12; Start 09/15/18 at 08:15; Stop 09/15/18 at 21:34; Status DC Multivitamins 10 ml/Thiamine HCl 100 mg/Folic Acid 1 mg/Sodium Chloride 1,011.2 ml @ 100 mls/ hr DAILY IV Last administered on 09/16/18at 09:04; Start 09/16/18 at 09:00; Stop 09/20/18 at 19:07 Multivitamins (Thera M Plus) 1 tab DAILY PO ; Start 09/21/18 at 09:00 Folic Acid (Folic Acid) 1 mg DAILY PO ; Start 09/21/18 at 09:00 Thiamine HCl 100 mg/Dextrose 51 ml @ 100 mls/hr DAILY IV ; Start 09/21/18 at 09:00; Stop 09/25/18 at 09:31 Lorazepam (Ativan) 2 mg Q6H PO Last administered on 09/15/18at 17:07; Start 09/15/18 at 11:15; Stop 09/16/18 at 01:28; Status DC Ondansetron HCl (Zofran) 4 mg PRN Q8HRS PRN IV NAUSEA/VOMITING Last administered on 09/15/18at 12:17; Start 09/15/18 at 12:15 Multivitamins 10 ml/Thiamine HCl 100 mg/Folic Acid 1 mg/Sodium Chloride 1,011.2 ml @ 100 mls/ hr DAILY IV ; Start 09/16/18 at 09:00; Stop 09/20/18 at 19:07; Status UNV Lorazepam (Ativan) 4 mg PRN Q1HR PRN PO For CIWA 8-14; Start 09/15/18 at 14:45 Lorazepam (Ativan) 2 mg PRN Q1HR PRN IV For CIWA 8-14 Last administered on 09/16/18at 09:04; Start 09/15/18 at 14:45 Lorazepam (Ativan) 4 mg PRN Q1HR PRN IV For CIWA 15 or greater; Start 09/15/18 at 14:45 Haloperidol Lactate (Haldol Inj) 5 mg PRN Q4HRS PRN IVP Hallucinatns,Confusn,Delirium; Start 09/15/18 at 14:45 Potassium Chloride (Klor-Con) 40 meq 1X ONCE PO ; Start 09/16/18 at 13:00; Stop 09/16/18 at 13:01 Sodium Chloride 1,000 ml @ 1,000 mls/hr 1X ONCE IV ; Start 09/16/18 at 12:45; Stop 09/16/18 at 13:44 Active Scripts Active Thera-M Tablet (Multivits,Ca,Minerals/Iron/Fa) 1 Each Tablet 1 Tab PO DAILY 30 Days Vitamin B-1 (Thiamine Mononitrate) 100 Mg Tablet 100 Mg PO DAILY 30 Days Folic Acid 1 Mg Tablet 1 Mg PO DAILY 30 Days Reported Omeprazole 20 Mg Tablet. 1 Tab PO DAILY Fluoxetine Hcl 40 Mg Capsule 60 Mg PO DAILY Gabapentin 600 Mg Tablet 300 Mg PO TID Seroquel (Quetiapine Fumarate) 100 Mg Tablet 1 Tab PO QHS Vitals/I & O Vital Sign - Last 24 Hours 09/15/18 09/15/18 09/15/18 09/15/18 14:45 19:00 20:00 23:51 Temp 98.1 97.9 98.4 98.1 97.9 98.4 Pulse 104 105 85 Resp 17 16 16 B/P (MAP) 106/72 (83) 100/60 (73) 103/67 (79) Pulse Ox 96 100 100 O2 Delivery Nasal Cannula Nasal Cannula Room Air Nasal Cannula O2 Flow Rate 2.0 2.0 2.0 09/16/18 09/16/18 09/16/18 09/16/18 03:06 07:20 08:00 11:20 Temp 98.4 98.7 98.4 98.4 98.7 98.4 Pulse 99 89 91 Resp 16 18 18 B/P (MAP) 91/51 (64) 106/76 (86) 101/68 (79) Pulse Ox 99 97 98 O2 Delivery Nasal Cannula Nasal Cannula Room Air Nasal Cannula O2 Flow Rate 2.0 2.0 2.0 2.0 Intake and Output 09/15/18 09/15/18 09/16/18 15:00 23:00 07:00 Intake Total 1000 ml 300 ml 200 ml Balance 1000 ml 300 ml 200 ml KATY BARBOSA MD Sep 16, 2018 12:57
[2018-09-16] MEDS ORDERED: POTASSIUM CHLORIDE 20 MEQ TABLET.ER. PO ONE (13:00)
[2018-09-16 15:20] VITALS: BP 94/54
--- NOTE | 2018-09-16 15:50 | RAD ---
Bilateral renal ultrasound without comparison for acute renal failure TECHNIQUE AND FINDINGS: Real-time grayscale and color Doppler evaluation of the kidneys and urinary bladder is performed. The right kidney measures 11.6 x 4.2 x 4.1 cm in the left measures 12.2 x 5.7 x 4.4 cm. There is no hydronephrosis or focal parenchymal abdomen malady involving either kidney. Mild separation of the central sinus on the right side is likely normal. The urinary bladder is fluid distended and grossly unremarkable. Bilateral ureteral jets are present. IMPRESSION: 1. No sonographically discernible renal abnormality. Electronically signed by: Bigg Mcclellan MD (09/16/2018 3:47 PM) [id number]
[2018-09-16 19:55] VITALS: BP 112/78
[2018-09-16 20:22] LABS: BILIRUBIN,URINE NEGATIVE (NEG); CLARITY,URINE CLEAR; COLOR,URINE YELLOW; NITRITE,URINE NEGATIVE (NEG); PH,URINE 7.5; PROTEIN,URINE NEGATIVE (NEG-TRACE); UROBILINOGEN,URINE 0.2 mg/dL (0.2 mg/dL)
[2018-09-16 20:34] LABS: SQUAMOUS EPITHELIAL CELL,UR MOD /LPF
[2018-09-16 20:35] LABS: BACTERIA,URINE MOD /HPF (0-FEW); RBC,URINE 0 /HPF (0-2)
[2018-09-16 23:45] VITALS: BP 100/58
[2018-09-17 03:05] VITALS: BP 106/67
--- NOTE | 2018-09-17 04:00 | NUR ---
Transfer of Care- Report given to WARNER Nevarez
[2018-09-17 04:45] LABS: BASO % 0 % (0-3); EOS # 0.1 x10^3/uL (0.0-0.7); EOS % 1 % (0-3); HEMATOCRIT 34.8 % (36.0-47.0); HEMOGLOBIN 11.6 g/dL (12.0-15.5); LYMPH # 1.8 x10^3/uL (1.0-4.8); LYMPH % 41 % (24-48); MEAN CORPUSCULAR HEMOGLOBIN 33 pg (25-35); MEAN CORPUSCULAR HGB CONC 33 g/dL (31-37); MEAN CORPUSCULAR VOLUME 98 fL (79-100); MONO # 0.4 x10^3/uL (0.0-1.1); MONO % 8 % (0-9); NEUT # 2.3 x10^3uL (1.8-7.7); NEUT % 50 % (31-73); PLATELET COUNT 249 x10^3/uL (140-400); RED BLOOD COUNT 3.57 x10^6/uL (3.50-5.40); RED CELL DISTRIBUTION WIDTH 13.9 % (11.5-14.5); WHITE BLOOD COUNT 4.6 x10^3/uL (4.0-11.0)
[2018-09-17 05:26] LABS: CALCIUM 8.7 mg/dL (8.5-10.1); CREATININE 1.3 mg/dL (0.6-1.0); GFR 43.5; POTASSIUM 3.4 mmol/L (3.5-5.1)
[2018-09-17 07:05] VITALS: BP 111/71
[2018-09-17] MEDS ORDERED: THIAMINE 100 MG TABLET. PO SCH (09:45)
[2018-09-17] MEDS ORDERED: POTASSIUM CHLORIDE 20 MEQ TABLET.ER. PO ONE (09:45)
[2018-09-17] MEDS ORDERED: MULTIVITAMIN with MINERAL TABLET. PO SCH (10:00)
[2018-09-17] MEDS ORDERED: FOLIC ACID 1 MG TABLET. PO SCH (10:00)
[2018-09-17 11:10] VITALS: BP 114/70
--- NOTE | 2018-09-17 14:31 | NUR ---
Discharge Note: NGUYEN KEENE [address] [place] [address] Discharge instructions reviewed with Patient and a copy given. All questions have been answered and understanding verbalized. The following instructions and handouts were given: Detox resources, CHUY, Pancreatitis and follow-up. All belongings with patient at discharge Discontinued lines and drains: 1 x PIV was discontinued Patient discharged to home via [facility] transport
--- NOTE | 2018-09-17 14:31 | NUR ---
SW following pt. Pt is signed up with [facility] for ICM services and has an assigned rehabilitation caseworker. Pt is provided necessary resources.
--- NOTE | 2018-09-17 14:45 | PDOC3 ---
Discharge Summary Visit Information Date of Admission: Sep 15, 2018 Date of Discharge: Sep 17, 2018 Admitting Diagnosis: alcohol abuse and withdrawl Final Diagnosis Alcohol withdrawal, whout delirium hypokalemia and acute kidney injury. anorexia, acute renal failure, atn hypokalemia Problems Medical Problems: (1) CHUY (acute kidney injury) Status: Acute (2) Hypokalemia Status: Acute Brief Hospital Course Allergies Allergies Coded Allergies Type Severity Reaction Last Updated Verified No Known Drug Allergies 09/03/18 No Vital Signs Vital Signs Date Time Temp Pulse Resp B/P (MAP) Pulse Ox O2 Delivery O2 Flow Rate FiO2 09/17/18 11:10 98.6 79 16 114/70 (85) 98 Room Air 98.6 09/16/18 15:20 2.0 Lab Results Laboratory Tests Test 09/16/18 03:30 09/16/18 19:30 09/17/18 04:05 White Blood Count 5.1 x10^3/uL (4.0-11.0) 4.6 x10^3/uL (4.0-11.0) Red Blood Count 3.65 x10^6/uL (3.50-5.40) 3.57 x10^6/uL (3.50-5.40) Hemoglobin 12.2 g/dL (12.0-15.5) 11.6 g/dL (12.0-15.5) Hematocrit 35.3 % (36.0-47.0) 34.8 % (36.0-47.0) Mean Corpuscular Volume 97 fL (79-100) 98 fL (79-100) Mean Corpuscular Hemoglobin 34 pg (25-35) 33 pg (25-35) Mean Corpuscular Hemoglobin Concent 35 g/dL (31-37) 33 g/dL (31-37) Red Cell Distribution Width 13.9 % (11.5-14.5) 13.9 % (11.5-14.5) Platelet Count 280 x10^3/uL (140-400) 249 x10^3/uL (140-400) Neutrophils (%) (Auto) 50 % (31-73) 50 % (31-73) Lymphocytes (%) (Auto) 38 % (24-48) 41 % (24-48) Monocytes (%) (Auto) 11 % (0-9) 8 % (0-9) Eosinophils (%) (Auto) 1 % (0-3) 1 % (0-3) Basophils (%) (Auto) 0 % (0-3) 0 % (0-3) Neutrophils # (Auto) 2.6 x10^3uL (1.8-7.7) 2.3 x10^3uL (1.8-7.7) Lymphocytes # (Auto) 1.9 x10^3/uL (1.0-4.8) 1.8 x10^3/uL (1.0-4.8) Monocytes # (Auto) 0.5 x10^3/uL (0.0-1.1) 0.4 x10^3/uL (0.0-1.1) Eosinophils # (Auto) 0.0 x10^3/uL (0.0-0.7) 0.1 x10^3/uL (0.0-0.7) Basophils # (Auto) 0.0 x10^3/uL (0.0-0.2) 0.0 x10^3/uL (0.0-0.2) Sodium Level 138 mmol/L (136-145) 137 mmol/L (136-145) Potassium Level 3.2 mmol/L (3.5-5.1) 3.4 mmol/L (3.5-5.1) Chloride Level 101 mmol/L (98-107) 105 mmol/L (98-107) Carbon Dioxide Level 27 mmol/L (21-32) 24 mmol/L (21-32) Anion Gap 10 (6-14) 8 (6-14) Blood Urea Nitrogen 5 mg/dL (7-20) 4 mg/dL (7-20) Creatinine 1.9 mg/dL (0.6-1.0) 1.3 mg/dL (0.6-1.0) Estimated GFR (Cockcroft-Gault) 28.1 43.5 Glucose Level 106 mg/dL (70-99) 95 mg/dL (70-99) Calcium Level 8.7 mg/dL (8.5-10.1) 8.7 mg/dL (8.5-10.1) Urine Collection Type Unknown Urine Color Yellow Urine Clarity Clear Urine pH 7.5 Urine Specific [place] 1.015 Urine Protein Negative mg/dL (NEG-TRACE) Urine Glucose (UA) Negative mg/dL (NEG) Urine Ketones (Stick) Negative mg/dL (NEG) Urine Blood Negative (NEG) Urine Nitrite Negative (NEG) Urine Bilirubin Negative (NEG) Urine Urobilinogen Dipstick 0.2 mg/dL (0.2 mg/dL) Urine Leukocyte Esterase Negative (NEG) Urine RBC 0 /HPF (0-2) Urine WBC 1-4 /HPF (0-4) Urine Squamous Epithelial Cells Mod /LPF Urine Bacteria Mod /HPF (0-FEW) Urine Mucus Slight /LPF Laboratory Tests Test 09/16/18 19:30 09/17/18 04:05 Urine Collection Type Unknown Urine Color Yellow Urine Clarity Clear Urine pH 7.5 Urine Specific [place] 1.015 Urine Protein Negative mg/dL (NEG-TRACE) Urine Glucose (UA) Negative mg/dL (NEG) Urine Ketones (Stick) Negative mg/dL (NEG) Urine Blood Negative (NEG) Urine Nitrite Negative (NEG) Urine Bilirubin Negative (NEG) Urine Urobilinogen Dipstick 0.2 mg/dL (0.2 mg/dL) Urine Leukocyte Esterase Negative (NEG) Urine RBC 0 /HPF (0-2) Urine WBC 1-4 /HPF (0-4) Urine Squamous Epithelial Cells Mod /LPF Urine Bacteria Mod /HPF (0-FEW) Urine Mucus Slight /LPF White Blood Count 4.6 x10^3/uL (4.0-11.0) Red Blood Count 3.57 x10^6/uL (3.50-5.40) Hemoglobin 11.6 g/dL (12.0-15.5) Hematocrit 34.8 % (36.0-47.0) Mean Corpuscular Volume 98 fL (79-100) Mean Corpuscular Hemoglobin 33 pg (25-35) Mean Corpuscular Hemoglobin Concent 33 g/dL (31-37) Red Cell Distribution Width 13.9 % (11.5-14.5) Platelet Count 249 x10^3/uL (140-400) Neutrophils (%) (Auto) 50 % (31-73) Lymphocytes (%) (Auto) 41 % (24-48) Monocytes (%) (Auto) 8 % (0-9) Eosinophils (%) (Auto) 1 % (0-3) Basophils (%) (Auto) 0 % (0-3) Neutrophils # (Auto) 2.3 x10^3uL (1.8-7.7) Lymphocytes # (Auto) 1.8 x10^3/uL (1.0-4.8) Monocytes # (Auto) 0.4 x10^3/uL (0.0-1.1) Eosinophils # (Auto) 0.1 x10^3/uL (0.0-0.7) Basophils # (Auto) 0.0 x10^3/uL (0.0-0.2) Sodium Level 137 mmol/L (136-145) Potassium Level 3.4 mmol/L (3.5-5.1) Chloride Level 105 mmol/L (98-107) Carbon Dioxide Level 24 mmol/L (21-32) Anion Gap 8 (6-14) Blood Urea Nitrogen 4 mg/dL (7-20) Creatinine 1.3 mg/dL (0.6-1.0) Estimated GFR (Cockcroft-Gault) 43.5 Glucose Level 95 mg/dL (70-99) Calcium Level 8.7 mg/dL (8.5-10.1) Brief Hospital Course Ms. Mena is a 48 old female, admit EtOH withdrawl, acute renal failure, low K+, req. IV fluid, e-lyte replacement, supportive caer, ativan for asterixis, nystagmus and tachycardia realted to EtOH withdrawl RADAC offered inpatient, she will do outpatient EtOH tx Discharge Information Condition at Discharge: Improved Follow Up: Weeks Disposition/Orders: D/C to Home Scheduled Fluoxetine Hcl (Fluoxetine Hcl) 40 Mg Capsule, 60 MG PO DAILY for depression/anxiety, (Reported) Entered as Reported by: CAMILLE KUNZ on 09/07/18 1514 Folic Acid (Folic Acid) 1 Mg Tablet, 1 MG PO DAILY for SUPPLEMENT for 30 Days, #30 Prescribed by: WHITNEY GASTON MD on 09/10/18 1634 Gabapentin (Gabapentin) 600 Mg Tablet, 300 MG PO TID for NEUROGENIC PAIN, (Reported) Entered as Reported by: CAMILLE KUNZ on 09/07/18 1514 Multivits,Ca,Minerals/Iron/Fa (Thera-M Tablet) 1 Each Tablet, 1 TAB PO DAILY for SUPPLEMENT for 30 Days, #30 Prescribed by: WHITNEY GASTON MD on 09/10/18 1634 Omeprazole (Omeprazole) 20 Mg Tablet., 1 TAB PO DAILY for heartburn , #90 Ref 1 (Reported) Entered as Reported by: CAMILLE KUNZ on 09/07/18 1514 Quetiapine Fumarate (Seroquel) 100 Mg Tablet, 1 TAB PO QHS for depression, #30 Ref 1 (Reported) Entered as Reported by: CAMILLE KUNZ on 09/07/181513 Thiamine Mononitrate (Vitamin B-1) 100 Mg Tablet, 100 MG PO DAILY for SUPPLEMENT for 30 Days, #30 Prescribed by: WHITNEY GASTON MD on 09/10/18 9814 KATY BARBOSA MD Sep 17, 2018 14:45
[2018-09-21] MEDS ORDERED: THIAMINE INJ 100 MG in IV DEXTROSE 5% 50 ML IV SCH (09:00)
[2018-09-21] MEDS ORDERED: QUET100T PO (13:11)
== END 2018-09-17 14:30 | disposition home or self-care (01) | DRG 640 ==
LOC: ER 04:30 → 6 SOUTH 08:46 → OBSVTOIN 09-16 12:38
PROVIDERS: ADMIT Internal Medicine; ATTEND Internal Medicine
DX: E87.6 Hypokalemia (principal); N17.0 Acute kidney failure with tubular necrosis; F10.239 Alcohol dependence with withdrawal, unspecified; F41.9 Anxiety disorder, unspecified; F32.9 Major depressive disorder, single episode, unspecified; K21.9 Gastro-esophageal reflux disease without esophagitis; Z81.1 Family history of alcohol abuse and dependence
CPT/HCPCS: 36415; 76770; 80048; 80053; 81001; 81025; 85025; 96361; 96365; 96366; 96375; G0378; G0379; G0480; J2060; J2405; J3480; J7030; 99285-25

== ENCOUNTER 2018-09-19 01:35 | Inpatient (IN) | payer SELFPAY ==
[~2018-09-19] VITALS: Ht 162.6 cm; Wt 57.7 kg
[2018-09-19 01:53] LABS: BILIRUBIN,URINE NEGATIVE (NEG); CLARITY,URINE CLEAR; COLOR,URINE YELLOW; NITRITE,URINE NEGATIVE (NEG); PROTEIN,URINE NEGATIVE (NEG-TRACE); UROBILINOGEN,URINE 0.2 mg/dL (0.2 mg/dL)
[2018-09-19 01:58] LABS: RBC,URINE RARE /HPF (0-2)
[2018-09-19 01:59] LABS: AMORPHOUS SEDIMENT,UR PRESENT /HPF; SQUAMOUS EPITHELIAL CELL,UR OCC /LPF; WBC,URINE OCC /HPF (0-4)
[2018-09-19 02:00] LABS: AMPHETAMINE/METHAMPHETAMINE NEG (NEG); BARBITURATES NEG (NEG); BENZODIAZEPINES POS (NEG); CANNABINOIDS NEG (NEG); COCAINE NEG (NEG); METHADONE NEG (NEG); OPIATES NEG (NEG); PHENCYCLIDINE NEG (NEG)
[2018-09-19] MEDS ORDERED: IV NORMAL SALINE 1000ML BAG 1,000 ML IV SCH (02:00)
[2018-09-19] MEDS ORDERED: ONDANSETRON PF 4 MG/2 ML VIAL. IV ONE (02:00)
[2018-09-19] MEDS ORDERED: ONDANSETRON PF 4 MG/2 ML VIAL. ONE (02:03)
[2018-09-19 02:09] LABS: BASO % 1 % (0-3); EOS % 1 % (0-3); HEMATOCRIT 42.1 % (36.0-47.0); HEMOGLOBIN 14.5 g/dL (12.0-15.5); LYMPH # 3.4 x10^3/uL (1.0-4.8); LYMPH % 57 % (24-48); MEAN CORPUSCULAR HEMOGLOBIN 33 pg (25-35); MEAN CORPUSCULAR HGB CONC 34 g/dL (31-37); MEAN CORPUSCULAR VOLUME 96 fL (79-100); MONO # 0.3 x10^3/uL (0.0-1.1); MONO % 5 % (0-9); NEUT # 2.2 x10^3uL (1.8-7.7); NEUT % 36 % (31-73); PLATELET COUNT 292 x10^3/uL (140-400); RED BLOOD COUNT 4.41 x10^6/uL (3.50-5.40); RED CELL DISTRIBUTION WIDTH 13.7 % (11.5-14.5)
[2018-09-19 02:23] LABS: ALBUMIN 4.5 g/dL (3.4-5.0); CALCIUM 10.6 mg/dL (8.5-10.1); CREATININE 2.7 mg/dL (0.6-1.0); DIRECT BILIRUBIN 0.1 mg/dL (0.0-0.2); GFR 18.7; MAGNESIUM 1.6 mg/dL (1.8-2.4); TOTAL BILIRUBIN 0.3 mg/dL (0.2-1.0); TOTAL PROTEIN 9.3 g/dL (6.4-8.2)
[2018-09-19 02:24] LABS: POTASSIUM 2.9 mmol/L (3.5-5.1)
--- NOTE | 2018-09-19 02:24 | PHYS DOC ---
Past Medical History Past Medical History: Alcoholism, Other Additional Past Medical Histor: PT POOR HISTORIAN Past Surgical History: Other Additional Past Surgical Histo: unknown Alcohol Use: Heavy Drug Use: None Adult General Chief Complaint Chief Complaint: ALCOHOL INTOXICATION HPI HPI Patient is a 48 year old female patient with history of alcohol abuse and frequent emergency room visits and hospitalization brought in by EMS because of alcohol problem. Patient was discharged from hospital 4 days ago and started drinking vodka daily without eating any food or taking a shower. Patient called 911 because she wanted help for stop bleeding. Patient doesn't know when was the last alcoholic drink. Patient denies suicidal and homicidal ideation. Review of Systems Review of Systems Constitutional: Denies fever or chills [] Eyes: Denies change in visual acuity, redness, or eye pain [] HENT: Denies nasal congestion or sore throat [] Respiratory: Denies cough or shortness of breath [] Cardiovascular: No additional information not addressed in HPI [] GI: Denies abdominal pain, bloody stools or diarrhea , reports nausea and vomiting[] : Denies dysuria or hematuria [] Musculoskeletal: Denies back pain or joint pain [] Integument: Denies rash or skin lesions [] Neurologic: Denies headache, focal weakness or sensory changes [] Endocrine: Denies polyuria or polydipsia [] All other systems were reviewed and found to be within normal limits, except as documented in this note. Current Medications Current Medications Current Medications Medications (Trade) Dose Ordered Sig/Jakob Start Time Stop Time Status Last Admin Dose Admin Ondansetron HCl (Zofran) 4 mg 1X ONCE 09/19/18 02:00 09/19/18 02:25 DC 09/19/18 02:10 4 MG Potassium Chloride/Water 50 ml @ 50 mls/hr 1X ONCE 09/19/18 02:30 09/19/18 02:30 DC Sodium Chloride 1,000 ml @ 1,000 mls/hr Q1H 09/19/18 02:00 09/19/18 02:59 09/19/18 02:00 1,000 MLS/HR Allergies Allergies Allergies Coded Allergies Type Severity Reaction Last Updated Verified No Known Drug Allergies 09/03/18 No Physical Exam Physical Exam Constitutional: Moderate distress, non-toxic appearance, poor hygiene. [] HENT: Normocephalic, atraumatic, oropharynx dry. Eyes: PERRLA, EOMI, conjunctiva normal, no discharge. [] Neck: Normal range of motion, no tenderness, supple, no stridor. [] Cardiovascular: Cardiac, no murmur [] Lungs & Thorax: Bilateral breath sounds clear to auscultation [] Abdomen: Bowel sounds normal, soft, no tenderness, no masses, no pulsatile masses. [] Skin: Warm, dry, no erythema, no rash. [] Back: No tenderness, no CVA tenderness. [] Extremities: No tenderness, no cyanosis, no clubbing, ROM intact, no edema. [] Neurologic: Alert and oriented, normal motor function, normal sensory function, no focal deficits noted. [] Psychologic: Affect anxious, uncooperative Current Patient Data Vital Signs Vital Signs Date Time Temp Pulse Resp B/P (MAP) Pulse Ox O2 Delivery O2 Flow Rate FiO2 09/19/18 01:35 97.9 89 12 122/77 (92) 100 Room Air 97.9 Lab Values Laboratory Tests Test 09/19/18 01:46 09/19/18 02:00 Urine Collection Type U cath Urine Color Yellow Urine Clarity Clear Urine pH 6.0 Urine Specific [place] 1.010 Urine Protein Negative mg/dL (NEG-TRACE) Urine Glucose (UA) Negative mg/dL (NEG) Urine Ketones (Stick) 15 mg/dL (NEG) Urine Blood Negative (NEG) Urine Nitrite Negative (NEG) Urine Bilirubin Negative (NEG) Urine Urobilinogen Dipstick 0.2 mg/dL (0.2 mg/dL) Urine Leukocyte Esterase Negative (NEG) Urine RBC Rare /HPF (0-2) Urine WBC Occ /HPF (0-4) Urine Squamous Epithelial Cells Occ /LPF Urine Amorphous Sediment Present /HPF Urine Bacteria /HPF (0-FEW) Urine Mucus Mod /LPF Urine Opiates Screen Neg (NEG) Urine Methadone Screen Neg (NEG) Urine Barbiturates Neg (NEG) Urine Phencyclidine Screen Neg (NEG) Urine Amphetamine/Methamphetamine Neg (NEG) Urine Benzodiazepines Screen Pos (NEG) Urine Cocaine Screen Neg (NEG) Urine Cannabinoids Screen Neg (NEG) Urine Ethyl Alcohol Neg (NEG) White Blood Count 6.0 x10^3/uL (4.0-11.0) Red Blood Count 4.41 x10^6/uL (3.50-5.40) Hemoglobin 14.5 g/dL (12.0-15.5) Hematocrit 42.1 % (36.0-47.0) Mean Corpuscular Volume 96 fL (79-100) Mean Corpuscular Hemoglobin 33 pg (25-35) Mean Corpuscular Hemoglobin Concent 34 g/dL (31-37) Red Cell Distribution Width 13.7 % (11.5-14.5) Platelet Count 292 x10^3/uL (140-400) Neutrophils (%) (Auto) 36 % (31-73) Lymphocytes (%) (Auto) 57 % (24-48) H Monocytes (%) (Auto) 5 % (0-9) Eosinophils (%) (Auto) 1 % (0-3) Basophils (%) (Auto) 1 % (0-3) Neutrophils # (Auto) 2.2 x10^3uL (1.8-7.7) Lymphocytes # (Auto) 3.4 x10^3/uL (1.0-4.8) Monocytes # (Auto) 0.3 x10^3/uL (0.0-1.1) Eosinophils # (Auto) 0.0 x10^3/uL (0.0-0.7) Basophils # (Auto) 0.0 x10^3/uL (0.0-0.2) Sodium Level 145 mmol/L (136-145) Potassium Level 2.9 mmol/L (3.5-5.1) *L Chloride Level 102 mmol/L (98-107) Carbon Dioxide Level 28 mmol/L (21-32) Anion Gap 15 (6-14) H Blood Urea Nitrogen 7 mg/dL (7-20) Creatinine 2.7 mg/dL (0.6-1.0) H Estimated GFR (Cockcroft-Gault) 18.7 Glucose Level 122 mg/dL (70-99) H Calcium Level 10.6 mg/dL (8.5-10.1) H Magnesium Level 1.6 mg/dL (1.8-2.4) L Total Bilirubin 0.3 mg/dL (0.2-1.0) Direct Bilirubin 0.1 mg/dL (0.0-0.2) Aspartate Amino Transferase (AST) 45 U/L (15-37) H Alanine Aminotransferase (ALT) 44 U/L (14-59) Alkaline Phosphatase 86 U/L (46-116) Total Protein 9.3 g/dL (6.4-8.2) H Albumin 4.5 g/dL (3.4-5.0) Lipase 212 U/L (73-393) Ethyl Alcohol Level < 10 mg/dL (0-10) Laboratory Tests 09/19/18 02:00 Laboratory Tests 09/19/18 02:00 EKG EKG [] Radiology/Procedures Radiology/Procedures [] Course & Med Decision Making Course & Med Decision Making Pertinent Labs reviewed. (See chart for details) Evaluation of patient in ER showed 48-year-old female patient brought in again by EMS because of alcohol problem. Patient had vomiting daily note that improved with IV Zofran and IV fluid. Patient had blood alcohol of less than 10. Potassium of 2.9 and creatinine of 2.7. Patient had IV magnesium and admit oral potassium was ordered for later on.Patient requiring admission for further evaluation and treatment. Discussed with Dr. Ramos who is in agreement with admission. Discussed findings and plan with patient and family, who acknowledge understanding and agreement. Dragon Disclaimer Dragon Disclaimer This electronic medical record was generated, in whole or in part, using a voice recognition dictation system. Departure Departure Impression: Primary Impression: Hypokalemia Additional Impressions: Hypomagnesemia Acute on chronic renal failure Alcohol withdrawal Nausea and vomiting Hypercalcemia Dehydration Disposition: 09 ADMITTED INPATIENT (at 0230) Admitting Physician: Lenore Ramos Condition: IMPROVED Referrals: NO PCP (PCP) Problem Qualifiers Additional Impressions: Acute on chronic renal failure Acute renal failure type: unspecified Chronic kidney disease stage: unspecified stage Qualified Codes: N17.9 - Acute kidney failure, unspecified; N18.9 - Chronic kidney disease, unspecified Alcohol withdrawal Complication of substance-induced condition: with unspecified complication Qualified Codes: F10.239 - Alcohol dependence with withdrawal, unspecified Nausea and vomiting Vomiting type: unspecified Vomiting Intractability: unspecified Qualified Codes: R11.2 - Nausea with vomiting, unspecified BANDAR KING MD Sep 19, 2018 02:24
[2018-09-19] MEDS ORDERED: POTASSIUM CHL 20MEQ PREMIX 50 ML IV ONE (02:30)
[2018-09-19] MEDS ORDERED: ONDANSETRON PF 4 MG/2 ML VIAL. IM ONE (02:30)
[2018-09-19] MEDS ORDERED: ONDANSETRON PF 4 MG/2 ML VIAL. IV PRN (02:45)
[2018-09-19] MEDS ORDERED: POTASSIUM CHLORIDE 20 MEQ TABLET.ER. PO ONE (03:00)
[2018-09-19] MEDS ORDERED: IV NORMAL SALINE 1000ML BAG 1,000 ML IV ONE (03:00)
[2018-09-19] MEDS ORDERED: MAGNESIUM SULFATE 2GM 50 ML IV ONE (03:00)
[2018-09-19] MEDS: IV NORMAL SALINE 1000ML BAG 1,000 ML IV SCH ×3 (03:43→17:20)
[2018-09-19 03:47] VITALS: BP 123/74
--- NOTE | 2018-09-19 04:36 | NUR ---
The patient, NGUYEN KEENE, 48 y/o, F admitted by KATY BARBOSA MD, was given written information regarding hospital policies, unit procedures and contact persons. Valuables were checked and left at bedside- purse; cell phone; tablet.
[2018-09-19 07:35] VITALS: BP 105/72
[2018-09-19 10:57] VITALS: BP 96/65
--- NOTE | 2018-09-19 11:10 | PDOC1 ---
History and Physical Date of Admission Date of Admission DATE: 09/19/18 TIME: 11:08 Identification/Chief Complaint Chief Complaint seen in er , 48 year old female patient with history of alcohol abuse and frequent emergency room visits and hospitalization brought in by EMS because of alcohol problem. Patient was discharged from hospital 4 days ago and started drinking vodka daily without eating LABS INDICATE CHUY, HAVING WITHDRAWAL SYMPTOMS Past Medical History Past Medical History Past Medical History Past Medical History: Alcoholism, Other Additional Past Medical Histor: PT POOR HISTORIAN Past Surgical History: Other Additional Past Surgical Histo: unknown Alcohol Use: Heavy Drug Use: None Cardiovascular: No pertinent hx Pulmonary: No pertinent hx Renal/: Acute renal failure Family History Family History: Alcohol Abuse Social History Smoke: <1 pack per day ALCOHOL: heavy Drugs: None Current Problem List Problem List Problems Medical Problems: (1) Acute on chronic renal failure Status: Acute (2) Dehydration Status: Acute (3) Hypercalcemia Status: Acute (4) Nausea and vomiting Status: Acute Current Medications Current Medications Current Medications Sodium Chloride 1,000 ml @ 1,000 mls/hr Q1H IV Last administered on 09/19/18at 02:00; Start 09/19/18 at 02:00; Stop 09/19/18 at 02:59; Status DC Ondansetron HCl (Zofran) 4 mg STK-MED ONCE .ROUTE ; Start 09/19/18 at 02:03; Stop 09/19/18 at 02:04; Status DC Ondansetron HCl (Zofran) 4 mg 1X ONCE IM ; Start 09/19/18 at 02:30; Stop 09/19/18 at 02:31; Status Cancel Ondansetron HCl (Zofran) 4 mg 1X ONCE IV Last administered on 09/19/18at 02:10; Start 09/19/18 at 02:00; Stop 09/19/18 at 02:25; Status DC Potassium Chloride/Water 50 ml @ 50 mls/hr 1X ONCE IV ; Start 09/19/18 at 02:30; Stop 09/19/18 at 02:30; Status DC Magnesium Sulfate 50 ml @ 25 mls/hr 1X ONCE IV Last administered on 09/19/18at 03:00; Start 09/19/18 at 03:00; Stop 09/19/18 at 04:59; Status DC Sodium Chloride 1,000 ml @ 1,000 mls/hr 1X ONCE IV Last administered on 09/19/18at 03:00; Start 09/19/18 at 03:00; Stop 09/19/18 at 03:59; Status DC Lorazepam (Ativan) 2 mg 1X ONCE IV Last administered on 09/19/18at 02:59; Start 09/19/18 at 03:00; Stop 09/19/18 at 03:01; Status DC Potassium Chloride (Klor-Con) 40 meq 1X ONCE PO Last administered on 09/19/18at 03:42; Start 09/19/18 at 03:00; Stop 09/19/18 at 03:01; Status DC Ondansetron HCl (Zofran) 4 mg PRN Q8HRS PRN IV NAUSEA/VOMITING 1ST CHOICE Last administered on 09/19/18at 03:42; Start 09/19/18 at 02:45; Stop 09/20/18 at 02:44 Sodium Chloride 1,000 ml @ 150 mls/hr Q6H40M IV Last administered on 09/19/18at 10:40; Start 09/19/18 at 04:00; Stop 09/20/18 at 03:59 Active Scripts Active Thera-M Tablet (Multivits,Ca,Minerals/Iron/Fa) 1 Each Tablet 1 Tab PO DAILY 30 Days Vitamin B-1 (Thiamine Mononitrate) 100 Mg Tablet 100 Mg PO DAILY 30 Days Folic Acid 1 Mg Tablet 1 Mg PO DAILY 30 Days Reported Omeprazole 20 Mg Tablet.dr 1 Tab PO DAILY Fluoxetine Hcl 40 Mg Capsule 60 Mg PO DAILY Gabapentin 600 Mg Tablet 300 Mg PO TID Seroquel (Quetiapine Fumarate) 100 Mg Tablet 1 Tab PO QHS Allergies Allergies: Coded Allergies: No Known Drug Allergies (Unverified , 09/03/18) ROS Review of System Review of Systems Review of Systems Constitutional: Denies fever or chills [] Eyes: Denies change in visual acuity, redness, or eye pain [] HENT: Denies nasal congestion or sore throat [] Respiratory: Denies cough or shortness of breath [] Cardiovascular: No additional information not addressed in HPI [] GI: Denies abdominal pain, bloody stools or diarrhea , reports nausea and vomiting, reports tremor[] : Denies dysuria or hematuria [] Musculoskeletal: Denies back pain or joint pain [] Integument: Denies rash or skin lesions [] Neurologic: Denies headache, focal weakness or sensory changes [] Endocrine: Denies polyuria or polydipsia [] 14 pt systems were reviewed and found to be within normal limits, except as documented Hematological and Lymphatic: No: Bleeding Problems, Blood Clots, Blood Transfusions, Brusing, Night Sweats, Pallor, Swollen Lymph Nodes, Other ENDOCRINE: YES: Mood Swings Neurological: Yes Gait Disturbance Skin: Yes Dry Skin Vitals Vitals Vital Signs Date Time Temp Pulse Resp B/P (MAP) Pulse Ox O2 Delivery O2 Flow Rate FiO2 09/19/18 10:57 98.2 76 18 96/65 (75) 99 Room Air 98.2 Labs Labs Laboratory Tests Test 09/19/18 01:46 09/19/18 02:00 Urine Collection Type U cath Urine Color Yellow Urine Clarity Clear Urine pH 6.0 Urine Specific [place] 1.010 Urine Protein Negative mg/dL (NEG-TRACE) Urine Glucose (UA) Negative mg/dL (NEG) Urine Ketones (Stick) 15 mg/dL (NEG) Urine Blood Negative (NEG) Urine Nitrite Negative (NEG) Urine Bilirubin Negative (NEG) Urine Urobilinogen Dipstick 0.2 mg/dL (0.2 mg/dL) Urine Leukocyte Esterase Negative (NEG) Urine RBC Rare /HPF (0-2) Urine WBC Occ /HPF (0-4) Urine Squamous Epithelial Cells Occ /LPF Urine Amorphous Sediment Present /HPF Urine Bacteria /HPF (0-FEW) Urine Mucus Mod /LPF Urine Opiates Screen Neg (NEG) Urine Methadone Screen Neg (NEG) Urine Barbiturates Neg (NEG) Urine Phencyclidine Screen Neg (NEG) Urine Amphetamine/Methamphetamine Neg (NEG) Urine Benzodiazepines Screen Pos (NEG) Urine Cocaine Screen Neg (NEG) Urine Cannabinoids Screen Neg (NEG) Urine Ethyl Alcohol Neg (NEG) White Blood Count 6.0 x10^3/uL (4.0-11.0) Red Blood Count 4.41 x10^6/uL (3.50-5.40) Hemoglobin 14.5 g/dL (12.0-15.5) Hematocrit 42.1 % (36.0-47.0) Mean Corpuscular Volume 96 fL (79-100) Mean Corpuscular Hemoglobin 33 pg (25-35) Mean Corpuscular Hemoglobin Concent 34 g/dL (31-37) Red Cell Distribution Width 13.7 % (11.5-14.5) Platelet Count 292 x10^3/uL (140-400) Neutrophils (%) (Auto) 36 % (31-73) Lymphocytes (%) (Auto) 57 % (24-48) Monocytes (%) (Auto) 5 % (0-9) Eosinophils (%) (Auto) 1 % (0-3) Basophils (%) (Auto) 1 % (0-3) Neutrophils # (Auto) 2.2 x10^3uL (1.8-7.7) Lymphocytes # (Auto) 3.4 x10^3/uL (1.0-4.8) Monocytes # (Auto) 0.3 x10^3/uL (0.0-1.1) Eosinophils # (Auto) 0.0 x10^3/uL (0.0-0.7) Basophils # (Auto) 0.0 x10^3/uL (0.0-0.2) Sodium Level 145 mmol/L (136-145) Potassium Level 2.9 mmol/L (3.5-5.1) Chloride Level 102 mmol/L (98-107) Carbon Dioxide Level 28 mmol/L (21-32) Anion Gap 15 (6-14) Blood Urea Nitrogen 7 mg/dL (7-20) Creatinine 2.7 mg/dL (0.6-1.0) Estimated GFR (Cockcroft-Gault) 18.7 Glucose Level 122 mg/dL (70-99) Calcium Level 10.6 mg/dL (8.5-10.1) Magnesium Level 1.6 mg/dL (1.8-2.4) Total Bilirubin 0.3 mg/dL (0.2-1.0) Direct Bilirubin 0.1 mg/dL (0.0-0.2) Aspartate Amino Transf (AST/SGOT) 45 U/L (15-37) Alanine Aminotransferase (ALT/SGPT) 44 U/L (14-59) Alkaline Phosphatase 86 U/L (46-116) Total Protein 9.3 g/dL (6.4-8.2) Albumin 4.5 g/dL (3.4-5.0) Lipase 212 U/L (73-393) Ethyl Alcohol Level < 10 mg/dL (0-10) Laboratory Tests Test 09/19/18 01:46 09/19/18 02:00 Urine Collection Type U cath Urine Color Yellow Urine Clarity Clear Urine pH 6.0 Urine Specific [place] 1.010 Urine Protein Negative mg/dL (NEG-TRACE) Urine Glucose (UA) Negative mg/dL (NEG) Urine Ketones (Stick) 15 mg/dL (NEG) Urine Blood Negative (NEG) Urine Nitrite Negative (NEG) Urine Bilirubin Negative (NEG) Urine Urobilinogen Dipstick 0.2 mg/dL (0.2 mg/dL) Urine Leukocyte Esterase Negative (NEG) Urine RBC Rare /HPF (0-2) Urine WBC Occ /HPF (0-4) Urine Squamous Epithelial Cells Occ /LPF Urine Amorphous Sediment Present /HPF Urine Bacteria /HPF (0-FEW) Urine Mucus Mod /LPF Urine Opiates Screen Neg (NEG) Urine Methadone Screen Neg (NEG) Urine Barbiturates Neg (NEG) Urine Phencyclidine Screen Neg (NEG) Urine Amphetamine/Methamphetamine Neg (NEG) Urine Benzodiazepines Screen Pos (NEG) Urine Cocaine Screen Neg (NEG) Urine Cannabinoids Screen Neg (NEG) Urine Ethyl Alcohol Neg (NEG) White Blood Count 6.0 x10^3/uL (4.0-11.0) Red Blood Count 4.41 x10^6/uL (3.50-5.40) Hemoglobin 14.5 g/dL (12.0-15.5) Hematocrit 42.1 % (36.0-47.0) Mean Corpuscular Volume 96 fL (79-100) Mean Corpuscular Hemoglobin 33 pg (25-35) Mean Corpuscular Hemoglobin Concent 34 g/dL (31-37) Red Cell Distribution Width 13.7 % (11.5-14.5) Platelet Count 292 x10^3/uL (140-400) Neutrophils (%) (Auto) 36 % (31-73) Lymphocytes (%) (Auto) 57 % (24-48) Monocytes (%) (Auto) 5 % (0-9) Eosinophils (%) (Auto) 1 % (0-3) Basophils (%) (Auto) 1 % (0-3) Neutrophils # (Auto) 2.2 x10^3uL (1.8-7.7) Lymphocytes # (Auto) 3.4 x10^3/uL (1.0-4.8) Monocytes # (Auto) 0.3 x10^3/uL (0.0-1.1) Eosinophils # (Auto) 0.0 x10^3/uL (0.0-0.7) Basophils # (Auto) 0.0 x10^3/uL (0.0-0.2) Sodium Level 145 mmol/L (136-145) Potassium Level 2.9 mmol/L (3.5-5.1) Chloride Level 102 mmol/L (98-107) Carbon Dioxide Level 28 mmol/L (21-32) Anion Gap 15 (6-14) Blood Urea Nitrogen 7 mg/dL (7-20) Creatinine 2.7 mg/dL (0.6-1.0) Estimated GFR (Cockcroft-Gault) 18.7 Glucose Level 122 mg/dL (70-99) Calcium Level 10.6 mg/dL (8.5-10.1) Magnesium Level 1.6 mg/dL (1.8-2.4) Total Bilirubin 0.3 mg/dL (0.2-1.0) Direct Bilirubin 0.1 mg/dL (0.0-0.2) Aspartate Amino Transf (AST/SGOT) 45 U/L (15-37) Alanine Aminotransferase (ALT/SGPT) 44 U/L (14-59) Alkaline Phosphatase 86 U/L (46-116) Total Protein 9.3 g/dL (6.4-8.2) Albumin 4.5 g/dL (3.4-5.0) Lipase 212 U/L (73-393) Ethyl Alcohol Level < 10 mg/dL (0-10) VTE Prophylaxis Ordered VTE Prophylaxis Devices: Yes VTE Pharmacological Prophylaxi: Yes Assessment/Plan Assessment/Plan ASSESSMENT AND PLAN: Alcohol withdrawal, hypokalemia CHUY - Pre-renal/Dehydration TRANSAMINITIS ANOREXIA DEPRESSION admitted. IV banana bag, alcohol withdrawal protocol. DVT prophylaxis. Home meds. Full code. PT, OT, frequent labs. THIAMINE AND FOLIC ACID NEEDS AA DAILY Renal function Improved with IVF ON PAST STAY WHITNEY GASTON MD Sep 19, 2018 11:10
[2018-09-19] MEDS ORDERED: diphenhydrAMINE 50 MG/ML VIAL IVP PRN ×2 (13:30→14:00)
[2018-09-19] MEDS ORDERED: cloNIDine HCL 0.1 MG TABLET PO PRN ×2 (13:30→14:00)
[2018-09-19] MEDS ORDERED: chlordiazePOXIDE HCL 25 MG CAPSULE PO PRN (13:30)
[2018-09-19] MEDS: LORazepam 1 MG TABLET PO PRN (13:44)
[2018-09-19] MEDS ORDERED: HALOPERIDOL LACTATE 5 MG/ML VIAL. IVP PRN (14:00)
[2018-09-19] MEDS ORDERED: LORazepam 1 MG TABLET PO PRN (14:00)
[2018-09-19] MEDS ORDERED: THIAMINE IM 200 MG/2 ML VIAL. IM SCH (14:30)
[2018-09-19] MEDS: MULTIVIT INFUSN,ADULT 4,VIT K 10 ML, THIAMINE INJ 100 MG, FOLIC ACID INJ 1 MG in IV NOR... IV SCH (15:03)
[2018-09-19] MEDS: GABAPENTIN 300 MG CAPSULE. PO SCH ×2 (15:04→21:16)
[2018-09-19] MEDS: FLUoxetine HCL 20 MG CAPSULE PO SCH (15:04)
[2018-09-19 15:27] VITALS: BP 105/71
[2018-09-19] MEDS: ENOXAPARIN 30 MG/0.3 ML SYRINGE. SQ SCH (18:18)
[2018-09-19 19:52] VITALS: BP 92/54
[2018-09-19] MEDS: QUEtiapine 100 MG TABLET. PO SCH (21:17)
[2018-09-19 22:41] VITALS: BP 86/50
[2018-09-20] MEDS: IV NORMAL SALINE 1000ML BAG 1,000 ML IV SCH (00:17)
[2018-09-20 03:46] VITALS: BP 91/52
[2018-09-20 04:45] LABS: BASO % 0 % (0-3); EOS # 0.1 x10^3/uL (0.0-0.7); EOS % 1 % (0-3); HEMATOCRIT 33.9 % (36.0-47.0); HEMOGLOBIN 11.2 g/dL (12.0-15.5); LYMPH # 2.9 x10^3/uL (1.0-4.8); LYMPH % 58 % (24-48); MEAN CORPUSCULAR HEMOGLOBIN 32 pg (25-35); MEAN CORPUSCULAR HGB CONC 33 g/dL (31-37); MEAN CORPUSCULAR VOLUME 98 fL (79-100); MONO # 0.2 x10^3/uL (0.0-1.1); MONO % 4 % (0-9); NEUT # 1.8 x10^3uL (1.8-7.7); NEUT % 36 % (31-73); PLATELET COUNT 214 x10^3/uL (140-400); RED BLOOD COUNT 3.45 x10^6/uL (3.50-5.40)
[2018-09-20 05:11] LABS: ALBUMIN 2.9 g/dL (3.4-5.0); ALBUMIN/GLOBULIN RATIO 0.9 (1.0-1.7); CALCIUM 8.1 mg/dL (8.5-10.1); CREATININE 1.9 mg/dL (0.6-1.0); GFR 28.1; POTASSIUM 3.3 mmol/L (3.5-5.1); TOTAL BILIRUBIN 0.1 mg/dL (0.2-1.0); TOTAL PROTEIN 6.3 g/dL (6.4-8.2)
[2018-09-20 07:30] VITALS: BP 89/61
[2018-09-20] MEDS ORDERED: POTASSIUM CHLORIDE 20 MEQ TABLET.ER. PO ONE (08:45)
[2018-09-20] MEDS ORDERED: FOLIC ACID 1 MG TABLET. PO SCH (09:00)
[2018-09-20] MEDS ORDERED: MULTIVITAMIN with MINERAL TABLET. PO SCH (09:00)
[2018-09-20] MEDS ORDERED: MAGNESIUM SULFATE 2GM 50 ML IV ONE (09:00)
--- NOTE | 2018-09-20 09:11 | PDOC ---
PROGRESS NOTES Chief Complaint Chief Complaint Alcohol withdrawal, hypokalemia - hypomag CHUY - Pre-renal/Dehydration on CKD 3 TRANSAMINITIS ANOREXIA DEPRESSION, major, alcohol abuse, active History of Present Illness History of Present Illness IV banana bag, alcohol withdrawal protocol. will sched ativan, she reports feeling horrible this AM, DVT prophylaxis. Home meds. Full code. THIAMINE AND FOLIC ACID NEEDS AA - may need inpatient alcohol cessation treatment Vitals Vitals Vital Signs Date Time Temp Pulse Resp B/P (MAP) Pulse Ox O2 Delivery O2 Flow Rate FiO2 09/20/18 07:30 97.7 70 18 89/61 (70) 96 Room Air 97.7 Physical Exam General: Alert, Oriented X3, Cooperative, mild distress Heart: Regular rate, Normal S1, No murmurs Lungs: Clear Extremities: No clubbing Skin: No rashes Labs LABS Laboratory Tests Test 09/20/18 04:20 White Blood Count 5.0 x10^3/uL (4.0-11.0) Red Blood Count 3.45 x10^6/uL (3.50-5.40) Hemoglobin 11.2 g/dL (12.0-15.5) Hematocrit 33.9 % (36.0-47.0) Mean Corpuscular Volume 98 fL (79-100) Mean Corpuscular Hemoglobin 32 pg (25-35) Mean Corpuscular Hemoglobin Concent 33 g/dL (31-37) Red Cell Distribution Width 14.0 % (11.5-14.5) Platelet Count 214 x10^3/uL (140-400) Neutrophils (%) (Auto) 36 % (31-73) Lymphocytes (%) (Auto) 58 % (24-48) Monocytes (%) (Auto) 4 % (0-9) Eosinophils (%) (Auto) 1 % (0-3) Basophils (%) (Auto) 0 % (0-3) Neutrophils # (Auto) 1.8 x10^3uL (1.8-7.7) Lymphocytes # (Auto) 2.9 x10^3/uL (1.0-4.8) Monocytes # (Auto) 0.2 x10^3/uL (0.0-1.1) Eosinophils # (Auto) 0.1 x10^3/uL (0.0-0.7) Basophils # (Auto) 0.0 x10^3/uL (0.0-0.2) Sodium Level 143 mmol/L (136-145) Potassium Level 3.3 mmol/L (3.5-5.1) Chloride Level 108 mmol/L (98-107) Carbon Dioxide Level 26 mmol/L (21-32) Anion Gap 9 (6-14) Blood Urea Nitrogen 3 mg/dL (7-20) Creatinine 1.9 mg/dL (0.6-1.0) Estimated GFR (Cockcroft-Gault) 28.1 BUN/Creatinine Ratio 2 (6-20) Glucose Level 140 mg/dL (70-99) Calcium Level 8.1 mg/dL (8.5-10.1) Total Bilirubin 0.1 mg/dL (0.2-1.0) Aspartate Amino Transf (AST/SGOT) 24 U/L (15-37) Alanine Aminotransferase (ALT/SGPT) 26 U/L (14-59) Alkaline Phosphatase 55 U/L (46-116) Total Protein 6.3 g/dL (6.4-8.2) Albumin 2.9 g/dL (3.4-5.0) Albumin/Globulin Ratio 0.9 (1.0-1.7) Assessment and Plan Assessmemt and Plan Problems Medical Problems: (1) Acute on chronic renal failure Status: Acute (2) Dehydration Status: Acute (3) Hypercalcemia Status: Acute (4) Nausea and vomiting Status: Acute Comment Review of Relevant I have reviewed the following items siva (where applicable) has been applied. Labs Laboratory Tests Test 09/19/18 01:46 09/19/18 02:00 09/20/18 04:20 Urine Collection Type U cath Urine Color Yellow Urine Clarity Clear Urine pH 6.0 Urine Specific [place] 1.010 Urine Protein Negative mg/dL (NEG-TRACE) Urine Glucose (UA) Negative mg/dL (NEG) Urine Ketones (Stick) 15 mg/dL (NEG) Urine Blood Negative (NEG) Urine Nitrite Negative (NEG) Urine Bilirubin Negative (NEG) Urine Urobilinogen Dipstick 0.2 mg/dL (0.2 mg/dL) Urine Leukocyte Esterase Negative (NEG) Urine RBC Rare /HPF (0-2) Urine WBC Occ /HPF (0-4) Urine Squamous Epithelial Cells Occ /LPF Urine Amorphous Sediment Present /HPF Urine Bacteria /HPF (0-FEW) Urine Mucus Mod /LPF Urine Opiates Screen Neg (NEG) Urine Methadone Screen Neg (NEG) Urine Barbiturates Neg (NEG) Urine Phencyclidine Screen Neg (NEG) Urine Amphetamine/Methamphetamine Neg (NEG) Urine Benzodiazepines Screen Pos (NEG) Urine Cocaine Screen Neg (NEG) Urine Cannabinoids Screen Neg (NEG) Urine Ethyl Alcohol Neg (NEG) White Blood Count 6.0 x10^3/uL (4.0-11.0) 5.0 x10^3/uL (4.0-11.0) Red Blood Count 4.41 x10^6/uL (3.50-5.40) 3.45 x10^6/uL (3.50-5.40) Hemoglobin 14.5 g/dL (12.0-15.5) 11.2 g/dL (12.0-15.5) Hematocrit 42.1 % (36.0-47.0) 33.9 % (36.0-47.0) Mean Corpuscular Volume 96 fL (79-100) 98 fL (79-100) Mean Corpuscular Hemoglobin 33 pg (25-35) 32 pg (25-35) Mean Corpuscular Hemoglobin Concent 34 g/dL (31-37) 33 g/dL (31-37) Red Cell Distribution Width 13.7 % (11.5-14.5) 14.0 % (11.5-14.5) Platelet Count 292 x10^3/uL (140-400) 214 x10^3/uL (140-400) Neutrophils (%) (Auto) 36 % (31-73) 36 % (31-73) Lymphocytes (%) (Auto) 57 % (24-48) 58 % (24-48) Monocytes (%) (Auto) 5 % (0-9) 4 % (0-9) Eosinophils (%) (Auto) 1 % (0-3) 1 % (0-3) Basophils (%) (Auto) 1 % (0-3) 0 % (0-3) Neutrophils # (Auto) 2.2 x10^3uL (1.8-7.7) 1.8 x10^3uL (1.8-7.7) Lymphocytes # (Auto) 3.4 x10^3/uL (1.0-4.8) 2.9 x10^3/uL (1.0-4.8) Monocytes # (Auto) 0.3 x10^3/uL (0.0-1.1) 0.2 x10^3/uL (0.0-1.1) Eosinophils # (Auto) 0.0 x10^3/uL (0.0-0.7) 0.1 x10^3/uL (0.0-0.7) Basophils # (Auto) 0.0 x10^3/uL (0.0-0.2) 0.0 x10^3/uL (0.0-0.2) Sodium Level 145 mmol/L (136-145) 143 mmol/L (136-145) Potassium Level 2.9 mmol/L (3.5-5.1) 3.3 mmol/L (3.5-5.1) Chloride Level 102 mmol/L (98-107) 108 mmol/L (98-107) Carbon Dioxide Level 28 mmol/L (21-32) 26 mmol/L (21-32) Anion Gap 15 (6-14) 9 (6-14) Blood Urea Nitrogen 7 mg/dL (7-20) 3 mg/dL (7-20) Creatinine 2.7 mg/dL (0.6-1.0) 1.9 mg/dL (0.6-1.0) Estimated GFR (Cockcroft-Gault) 18.7 28.1 Glucose Level 122 mg/dL (70-99) 140 mg/dL (70-99) Calcium Level 10.6 mg/dL (8.5-10.1) 8.1 mg/dL (8.5-10.1) Magnesium Level 1.6 mg/dL (1.8-2.4) Total Bilirubin 0.3 mg/dL (0.2-1.0) 0.1 mg/dL (0.2-1.0) Direct Bilirubin 0.1 mg/dL (0.0-0.2) Aspartate Amino Transf (AST/SGOT) 45 U/L (15-37) 24 U/L (15-37) Alanine Aminotransferase (ALT/SGPT) 44 U/L (14-59) 26 U/L (14-59) Alkaline Phosphatase 86 U/L (46-116) 55 U/L (46-116) Total Protein 9.3 g/dL (6.4-8.2) 6.3 g/dL (6.4-8.2) Albumin 4.5 g/dL (3.4-5.0) 2.9 g/dL (3.4-5.0) Lipase 212 U/L (73-393) Ethyl Alcohol Level < 10 mg/dL (0-10) BUN/Creatinine Ratio 2 (6-20) Albumin/Globulin Ratio 0.9 (1.0-1.7) Laboratory Tests Test 09/20/18 04:20 White Blood Count 5.0 x10^3/uL (4.0-11.0) Red Blood Count 3.45 x10^6/uL (3.50-5.40) Hemoglobin 11.2 g/dL (12.0-15.5) Hematocrit 33.9 % (36.0-47.0) Mean Corpuscular Volume 98 fL (79-100) Mean Corpuscular Hemoglobin 32 pg (25-35) Mean Corpuscular Hemoglobin Concent 33 g/dL (31-37) Red Cell Distribution Width 14.0 % (11.5-14.5) Platelet Count 214 x10^3/uL (140-400) Neutrophils (%) (Auto) 36 % (31-73) Lymphocytes (%) (Auto) 58 % (24-48) Monocytes (%) (Auto) 4 % (0-9) Eosinophils (%) (Auto) 1 % (0-3) Basophils (%) (Auto) 0 % (0-3) Neutrophils # (Auto) 1.8 x10^3uL (1.8-7.7) Lymphocytes # (Auto) 2.9 x10^3/uL (1.0-4.8) Monocytes # (Auto) 0.2 x10^3/uL (0.0-1.1) Eosinophils # (Auto) 0.1 x10^3/uL (0.0-0.7) Basophils # (Auto) 0.0 x10^3/uL (0.0-0.2) Sodium Level 143 mmol/L (136-145) Potassium Level 3.3 mmol/L (3.5-5.1) Chloride Level 108 mmol/L (98-107) Carbon Dioxide Level 26 mmol/L (21-32) Anion Gap 9 (6-14) Blood Urea Nitrogen 3 mg/dL (7-20) Creatinine 1.9 mg/dL (0.6-1.0) Estimated GFR (Cockcroft-Gault) 28.1 BUN/Creatinine Ratio 2 (6-20) Glucose Level 140 mg/dL (70-99) Calcium Level 8.1 mg/dL (8.5-10.1) Total Bilirubin 0.1 mg/dL (0.2-1.0) Aspartate Amino Transf (AST/SGOT) 24 U/L (15-37) Alanine Aminotransferase (ALT/SGPT) 26 U/L (14-59) Alkaline Phosphatase 55 U/L (46-116) Total Protein 6.3 g/dL (6.4-8.2) Albumin 2.9 g/dL (3.4-5.0) Albumin/Globulin Ratio 0.9 (1.0-1.7) Medications Current Medications Sodium Chloride 1,000 ml @ 1,000 mls/hr Q1H IV Last administered on 09/19/18at 02:00; Start 09/19/18 at 02:00; Stop 09/19/18 at 02:59; Status DC Ondansetron HCl (Zofran) 4 mg STK-MED ONCE .ROUTE ; Start 09/19/18 at 02:03; Stop 09/19/18 at 02:04; Status DC Ondansetron HCl (Zofran) 4 mg 1X ONCE IM ; Start 09/19/18 at 02:30; Stop 09/19/18 at 02:31; Status Cancel Ondansetron HCl (Zofran) 4 mg 1X ONCE IV Last administered on 09/19/18at 02:10; Start 09/19/18 at 02:00; Stop 09/19/18 at 02:25; Status DC Potassium Chloride/Water 50 ml @ 50 mls/hr 1X ONCE IV ; Start 09/19/18 at 02:30; Stop 09/19/18 at 02:30; Status DC Magnesium Sulfate 50 ml @ 25 mls/hr 1X ONCE IV Last administered on 09/19/18at 03:00; Start 09/19/18 at 03:00; Stop 09/19/18 at 04:59; Status DC Sodium Chloride 1,000 ml @ 1,000 mls/hr 1X ONCE IV Last administered on at 03:00; Start 09/19/18 at 03:00; Stop 09/19/18 at 03:59; Status DC Lorazepam (Ativan) 2 mg 1X ONCE IV Last administered on 09/19/18at 02:59; Start 09/19/18 at 03:00; Stop 09/19/18 at 03:01; Status DC Potassium Chloride (Klor-Con) 40 meq 1X ONCE PO Last administered on 09/19/18at 03:42; Start 09/19/18 at 03:00; Stop 09/19/18 at 03:01; Status DC Ondansetron HCl (Zofran) 4 mg PRN Q8HRS PRN IV NAUSEA/VOMITING 1ST CHOICE Last administered on 09/19/18at 03:42; Start 09/19/18 at 02:45; Stop 09/20/18 at 02 :44; Status DC Sodium Chloride 1,000 ml @ 150 mls/hr Q6H40M IV Last administered on 09/19/18at 17:20; Start 09/19/18 at 04:00; Stop 09/20/18 at 03:59; Status DC Multivitamins (Thera M Plus) 1 tab DAILY PO ; Start 09/24/18 at 09:00 Folic Acid (Folic Acid) 1 mg DAILY PO ; Start 09/24/18 at 09:00 Thiamine HCl 100 mg DAILY IM ; Start 09/19/18 at 14:30; Stop 09/19/18 at 14:30; Status DC Chlordiazepoxide (Librium) 100 mg PRN Q1HR PRN PO For CIWA 15 or greater Last administered on 09/19/18at 18:18; Start 09/19/18 at 13:30 Lorazepam (Ativan) 4 mg PRN Q1HR PRN PO For CIWA 8-14 Last administered on 09/19/18at 13:44; Start 09/19/18 at 13:30 Diphenhydramine HCl (Benadryl) 25 mg PRN Q15MIN PRN IVP EPS symptoms 2'Haldol admin; Start 09/19/18 at 13:30; Stop 09/19/18 at 14:07; Status DC Clonidine HCl (Catapres) 0.1 mg PRN Q1HR PRN PO SBP > 180 or DBP > 100, MRX3; Start 09/19/18 at 13:30; Stop 09/19/18 at 14:07; Status DC Folic Acid (Folic Acid) 1 mg DAILY PO ; Start 09/20/18 at 09:00; Status UNV Multivitamins (Thera M Plus) 1 tab DAILY PO ; Start 09/20/18 at 09:00; Status UNV Fluoxetine HCl (PROzac) 60 mg DAILY PO Last administered on 09/19/18at 15:04; Start 09/19/18 at 14:30 Gabapentin (Neurontin) 300 mg TID PO Last administered on 09/19/18at 21:16; Start 09/19/18 at 14:30 Pantoprazole Sodium (Protonix) 40 mg DAILYAC PO ; Start 09/20/18 at 07:30 Quetiapine Fumarate (SEROquel) 100 mg QHS PO Last administered on 09/19/18at 21:17; Start 09/19/18 at 21:00 Thiamine Mononitrate (Vitamin B-1) 100 mg DAILY PO ; Start 09/24/18 at 09:00 Multivitamins 10 ml/Thiamine HCl 100 mg/Folic Acid 1 mg/Sodium Chloride 1,011.2 ml @ 100 mls/ hr DAILY IV Last administered on 09/19/18at 15:03; Start 09/19/18 at 15:10; Stop 09/23/18 at 19:07 Lorazepam (Ativan) 4 mg PRN Q1HR PRN PO For CIWA 8-14; Start 09/19/18 at 14:00; Status UNV Lorazepam (Ativan) 2 mg PRN Q1HR PRN IV For CIWA 8-14 Last administered on 09/19/18at 22:07; Start 09/19/18 at 14:00 Haloperidol Lactate (Haldol Inj) 5 mg PRN Q4HRS PRN IVP Hallucinatns,Confusn,Delirium Last administered on 09/20/18at 00:47; Start 09/19/18 at 14:00 Diphenhydramine HCl (Benadryl) 25 mg PRN Q15MIN PRN IVP EPS symptoms 2'Haldol admin; Start 09/19/18 at 14:00 Clonidine HCl (Catapres) 0.1 mg PRN Q1HR PRN PO SBP > 180 or DBP > 100, MRX3; Start 09/19/18 at 14:00 Lorazepam (Ativan) 2 mg PRN Q15MIN PRN IV SEE COMMENTS; Start 09/19/18 at 14:00; Status UNV Lorazepam (Ativan) 4 mg PRN Q15MIN PRN IV SEE COMMENTS; Start 09/19/18 at 14:00; Status UNV Enoxaparin Sodium (Lovenox 30mg Syringe) 30 mg Q24H SQ Last administered on 09/19/18at 18:18; Start 09/19/18 at 16:00 Potassium Chloride (Klor-Con) 40 meq 1X ONCE PO ; Start 09/20/18 at 08:45; Stop 09/20/18 at 08:48; Status DC Magnesium Sulfate 50 ml @ 25 mls/hr 1X ONCE IV ; Start 09/20/18 at 09:00; Stop 09/20/18 at 10:59 Active Scripts Active Thera-M Tablet (Multivits,Ca,Minerals/Iron/Fa) 1 Each Tablet 1 Tab PO DAILY 30 Days Vitamin B-1 (Thiamine Mononitrate) 100 Mg Tablet 100 Mg PO DAILY 30 Days Folic Acid 1 Mg Tablet 1 Mg PO DAILY 30 Days Reported Fluoxetine Hcl 40 Mg Capsule 60 Mg PO DAILY Vitals/I & O Vital Sign - Last 24 Hours 09/19/18 09/19/18 09/19/18 09/19/18 10:57 15:27 19:52 20:00 Temp 98.2 97.7 98.3 98.2 97.7 98.3 Pulse 76 81 84 Resp 18 18 20 B/P (MAP) 96/65 (75) 105/71 (82) 92/54 (67) Pulse Ox 99 97 97 O2 Delivery Room Air Room Air Room Air Room Air 09/19/18 09/20/18 09/20/18 22:41 03:46 07:30 Temp 97.7 97.9 97.7 97.7 97.9 97.7 Pulse 77 89 70 Resp 19 18 18 B/P (MAP) 86/50 (62) 91/52 (65) 89/61 (70) Pulse Ox 100 96 96 O2 Delivery Room Air Room Air Room Air Intake and Output 09/19/18 09/19/18 09/20/18 15:00 23:00 07:00 Intake Total 0 ml 120 ml 100 ml Balance 0 ml 120 ml 100 ml KATY BARBOSA MD Sep 20, 2018 09:11
[2018-09-20] MEDS ORDERED: IV NORMAL SALINE 1000ML BAG 1,000 ML IV ONE (09:15)
[2018-09-20] MEDS ORDERED: LORazepam 1 MG TABLET PO ONE (09:15)
[2018-09-20] MEDS: GABAPENTIN 300 MG CAPSULE. PO SCH ×3 (09:25→19:59)
[2018-09-20] MEDS: FLUoxetine HCL 20 MG CAPSULE PO SCH (09:25)
[2018-09-20] MEDS: MULTIVIT INFUSN,ADULT 4,VIT K 10 ML, THIAMINE INJ 100 MG, FOLIC ACID INJ 1 MG in IV NOR... IV SCH (09:26)
[2018-09-20] MEDS: PANTOPRAZOLE 40 MG TABLET.DR. PO SCH (09:26)
[2018-09-20] MEDS: LORazepam 1 MG TABLET PO PRN ×4 (09:26→22:14)
--- NOTE | 2018-09-20 10:17 | NUR ---
gave pt her PRN dose of 4mg Ativan, then saw that Dr Ramos put in the one time dose of Ativan. I held that dose because I gave her the PRN dose instead. Yomi Vee RN
[2018-09-20 11:11] VITALS: BP 104/64
[2018-09-20 15:17] VITALS: BP 108/66
[2018-09-20] MEDS: ENOXAPARIN 30 MG/0.3 ML SYRINGE. SQ SCH (15:28)
[2018-09-20 19:00] VITALS: BP 102/64
[2018-09-20] MEDS: QUEtiapine 100 MG TABLET. PO SCH (19:58)
[2018-09-20] MEDS: LORazepam 1 MG TABLET PO SCH (19:58)
[2018-09-20 23:00] VITALS: BP 121/80
[2018-09-21 03:00] VITALS: BP 116/65
[2018-09-21 07:00] VITALS: BP 102/57
[2018-09-21] MEDS: LORazepam 1 MG TABLET PO SCH (08:47)
[2018-09-21] MEDS: PANTOPRAZOLE 40 MG TABLET.DR. PO SCH (08:48)
[2018-09-21] MEDS: FLUoxetine HCL 20 MG CAPSULE PO SCH (08:48)
[2018-09-21] MEDS: GABAPENTIN 300 MG CAPSULE. PO SCH (08:48)
[2018-09-21] MEDS: MULTIVIT INFUSN,ADULT 4,VIT K 10 ML, THIAMINE INJ 100 MG, FOLIC ACID INJ 1 MG in IV NOR... IV SCH (08:48)
[2018-09-21 11:00] VITALS: BP 103/62
[2018-09-21] MEDS ORDERED: QUET100T PO (13:11)
--- NOTE | 2018-09-21 13:56 | PDOC3 ---
Discharge Summary Visit Information Date of Admission: Sep 19, 2018 Date of Discharge: Sep 21, 2018 Final Diagnosis Alcohol withdrawal, hypokalemia - hypomag CHUY - Pre-renal/Dehydration on CKD 3 TRANSAMINITIS ANOREXIA DEPRESSION, major, alcohol abuse, active Problems Medical Problems: (1) Acute on chronic renal failure Status: Acute (2) Dehydration Status: Acute (3) Hypercalcemia Status: Acute (4) Nausea and vomiting Status: Acute Brief Hospital Course Allergies Allergies Coded Allergies Type Severity Reaction Last Updated Verified No Known Drug Allergies 09/03/18 No Vital Signs Vital Signs Date Time Temp Pulse Resp B/P (MAP) Pulse Ox O2 Delivery O2 Flow Rate FiO2 09/21/18 11:00 97.9 66 16 103/62 (76) 99 Room Air 97.9 Lab Results Laboratory Tests Test 09/20/18 04:20 White Blood Count 5.0 x10^3/uL (4.0-11.0) Red Blood Count 3.45 x10^6/uL (3.50-5.40) Hemoglobin 11.2 g/dL (12.0-15.5) Hematocrit 33.9 % (36.0-47.0) Mean Corpuscular Volume 98 fL (79-100) Mean Corpuscular Hemoglobin 32 pg (25-35) Mean Corpuscular Hemoglobin Concent 33 g/dL (31-37) Red Cell Distribution Width 14.0 % (11.5-14.5) Platelet Count 214 x10^3/uL (140-400) Neutrophils (%) (Auto) 36 % (31-73) Lymphocytes (%) (Auto) 58 % (24-48) Monocytes (%) (Auto) 4 % (0-9) Eosinophils (%) (Auto) 1 % (0-3) Basophils (%) (Auto) 0 % (0-3) Neutrophils # (Auto) 1.8 x10^3uL (1.8-7.7) Lymphocytes # (Auto) 2.9 x10^3/uL (1.0-4.8) Monocytes # (Auto) 0.2 x10^3/uL (0.0-1.1) Eosinophils # (Auto) 0.1 x10^3/uL (0.0-0.7) Basophils # (Auto) 0.0 x10^3/uL (0.0-0.2) Sodium Level 143 mmol/L (136-145) Potassium Level 3.3 mmol/L (3.5-5.1) Chloride Level 108 mmol/L (98-107) Carbon Dioxide Level 26 mmol/L (21-32) Anion Gap 9 (6-14) Blood Urea Nitrogen 3 mg/dL (7-20) Creatinine 1.9 mg/dL (0.6-1.0) Estimated GFR (Cockcroft-Gault) 28.1 BUN/Creatinine Ratio 2 (6-20) Glucose Level 140 mg/dL (70-99) Calcium Level 8.1 mg/dL (8.5-10.1) Total Bilirubin 0.1 mg/dL (0.2-1.0) Aspartate Amino Transf (AST/SGOT) 24 U/L (15-37) Alanine Aminotransferase (ALT/SGPT) 26 U/L (14-59) Alkaline Phosphatase 55 U/L (46-116) Total Protein 6.3 g/dL (6.4-8.2) Albumin 2.9 g/dL (3.4-5.0) Albumin/Globulin Ratio 0.9 (1.0-1.7) Brief Hospital Course Ms. Mena is a 48 old was DC days prior for EtOH abuse, intox and withdrawl, and returned 4 days later for exact same. Went home and started drinking vodka, all day IV banana bag, alcohol withdrawal protocol. DVT prophylaxis. thiamine and folate ,banana bag given Home meds. NEEDS AA - may need inpatient alcohol cessation treatment Discharge Information Condition at Discharge: Improved Follow Up: Weeks Disposition/Orders: D/C to Home Scheduled Fluoxetine Hcl (Fluoxetine Hcl) 40 Mg Capsule, 60 MG PO DAILY for depression/anxiety, (Reported) Entered as Reported by: CAMILLE KUNZ on 09/07/18 1514 Last Action: Reviewed on 09/19/181730 by CAMILLE BARBOZA RN Folic Acid (Folic Acid) 1 Mg Tablet, 1 MG PO DAILY for SUPPLEMENT for 30 Days, #30 Prescribed by: WHITNEY GASTON MD on 09/10/18 1634 Last Action: Continued on 09/19/18 1356 by WHITNEY GASTON MD Multivits,Ca,Minerals/Iron/Fa (Thera-M Tablet) 1 Each Tablet, 1 TAB PO DAILY for SUPPLEMENT for 30 Days, #30 Prescribed by: WHITNEY GASTON MD on 09/10/181633 Last Action: Continued on 09/19/181355 by WHITNEY GASTON MD Quetiapine Fumarate (Quetiapine Fumarate) 100 Mg Tablet, 100 MG PO QHS for sleep, #30 Prescribed by: KATY BARBOSA on 09/21/18 1311 Thiamine Mononitrate (Vitamin B-1) 100 Mg Tablet, 100 MG PO DAILY for SUPPLEMENT for 30 Days, #30 Prescribed by: WHITNEY GASTON MD on 09/10/181633 Last Action: Converted on 09/19/181355 by WHITNEY GASTON MD Discontinued Medications Gabapentin (Gabapentin) 600 Mg Tablet, 300 MG PO TID for NEUROGENIC PAIN, (Reported) Entered as Reported by: CAMILLE KUNZ on 09/07/181513 Last Action: Discontinued on 09/19/181730 by CAMILLE BARBOZA RN Omeprazole (Omeprazole) 20 Mg Tablet.dr, 1 TAB PO DAILY for heartburn , #90 Ref 1 (Reported) Entered as Reported by: CAMILLE KUNZ on 09/07/181513 Last Action: Discontinued on 09/19/181730 by CAMILLE BARBOZA RN Quetiapine Fumarate (Seroquel) 100 Mg Tablet, 1 TAB PO QHS for depression, #30 Ref 1 (Reported) Entered as Reported by: CAMILLE KUNZ on 09/07/181513 Last Action: Discontinued on 09/19/181730 by CAMILLE BARBOZA RN Patient Instructions Patient Instructions face to face < 30 min KATY BARBOSA MD Sep 21, 2018 13:56
--- NOTE | 2018-09-21 16:05 | NUR ---
Discharge Note: [facility] Discharge instructions and discharge home medications reviewed with patient and a copy given. All questions have been answered and understanding verbalized. The following instructions and handouts were given: Prescription for quetiapine Handout about alcohol withdrawal Patient educated to avoid alcohol. Discontinued lines and drains:peripheral IV intact, patient tolerated removal, no complications noted. Patient discharged to home via wheelchair accompanied by transport personnel at 1500.
[2018-09-24] MEDS ORDERED: MULTIVITAMIN with MINERAL TABLET. PO SCH (09:00)
[2018-09-24] MEDS ORDERED: THIAMINE 100 MG TABLET. PO SCH (09:00)
[2018-09-24] MEDS ORDERED: FOLIC ACID 1 MG TABLET. PO SCH (09:00)
== END 2018-09-21 14:30 | disposition home or self-care (01) | DRG 683 ==
LOC: ER 01:35 → 6 SOUTH 03:00
PROVIDERS: ADMIT Internal Medicine; ATTEND Internal Medicine
DX: N17.9 Acute kidney failure, unspecified (principal); F10.239 Alcohol dependence with withdrawal, unspecified; E87.6 Hypokalemia; E86.0 Dehydration; E83.42 Hypomagnesemia; N18.3 Chronic kidney disease, stage 3 (moderate); E83.52 Hypercalcemia; F17.210 Nicotine dependence, cigarettes, uncomplicated; F32.9 Major depressive disorder, single episode, unspecified; F10.229 Alcohol dependence with intoxication, unspecified
CPT/HCPCS: 36415; 80048; 80053; 80076; 80307; 81001; 83690; 83735; 85025; 96361; 96374; 96375; G0480; J1630; J1650; J2060; J2405; J3475; J7030; 99285-25

== ENCOUNTER 2020-05-10 15:04 | Emergency (ER) | payer SELFPAY ==
[~2020-05-10] VITALS: Ht 162.6 cm; Wt 59.0 kg
[~2020-05-10 15:04] MED LIST changes: +QUET100T PO
[2020-05-10] MEDS ORDERED: ONDANSETRON PF 4 MG/2 ML VIAL. IVP ONE (17:15)
[2020-05-10] MEDS ORDERED: MULTIVIT INFUSN,ADULT 4,VIT K 10 ML, THIAMINE INJ 100 MG, FOLIC ACID INJ 1 MG in IV NOR... IV ONE (17:15)
--- NOTE | 2020-05-10 17:54 | PHYS DOC ---
Past Medical History Past Medical History: Alcoholism, Unknown Additional Past Medical Histor: pancreatitis (DALEVALERY FLAHERTY APRN) Past Surgical History: Other Additional Past Surgical Histo: unknown (DALEVALERY FLAHERTY APRN) Smoking Status: Current Every Day Smoker Alcohol Use: Heavy Drug Use: None (SEDAVALERY MASON) General Adult EDM: Chief Complaint: MEDICAL CLEARANCE HPI: HPI: Patient is a 50 year old female with a history of alcoholism presenting today requesting medical clearance to go to [facility] for alcohol rehab. She states she went there at 2 PM and her alcohol level was too high. She states she drank 1 airplane bottle of alcohol prior to going to [facility]. She states she also had vodka last night. She is complaining of nausea. Denies any abdominal pain. (DALEMERLENEVALERY Quintanilla APRN) Review of Systems: Review of Systems: Constitutional: Denies fever or chills. [] Eyes: Denies change in visual acuity. [] HENT: Denies nasal congestion or sore throat. [] Respiratory: Denies cough or shortness of breath. [] Cardiovascular: Denies chest pain or edema. [] GI: Reports nausea. Denies abdominal pain, vomiting, bloody stools or diarrhea. [] : Denies dysuria. [] Musculoskeletal: Denies back pain or joint pain. [] Integument: Denies rash. [] Neurologic: Denies headache, focal weakness or sensory changes. [] Endocrine: Denies polyuria or polydipsia. [] Lymphatic: Denies swollen glands. [] Psychiatric: Request for medical clearance for rehab (VALERY STACK APRN) Heart Score: Risk Factors: Risk Factors: DM, Current or recent (<one month) smoker, HTN, HLP, family history of CAD, obesity. Risk Scores: Score 0 - 3: 2.5% MACE over next 6 weeks - Discharge Home Score 4 - 6: 20.3% MACE over next 6 weeks - Admit for Clinical Observation Score 7 - 10: 72.7% MACE over next 6 weeks - Early Invasive Strategies (VALERY STACK APRN) Current Medications: Current Medications Medications (Trade) Dose Ordered Sig/Jakob Start Time Stop Time Status Last Admin Dose Admin Multivitamins 10 ml/Thiamine HCl 100 mg/Folic Acid 1 mg/Sodium Chloride 1,011.2 ml @ 1,000.088 mls/hr 1X ONCE 05/10/20 17:15 05/10/20 18:15 Ondansetron HCl (Zofran) 4 mg 1X ONCE 05/10/20 17:15 05/10/20 17:16 DC (VALERY STACK APRN) Allergies: Allergies: Allergies Coded Allergies Type Severity Reaction Last Updated Verified No Known Drug Allergies 09/03/18 No (VALERY STACK APRN) Physical Exam: PE: Constitutional: Well developed, well nourished, no acute distress, non-toxic appearance. [] HENT: Normocephalic, atraumatic, bilateral external ears normal, oropharynx moist, no oral exudates, nose normal. [] Eyes: PERRLA, EOMI, conjunctiva normal, no discharge. [] Neck: Normal range of motion, no tenderness, supple, no stridor. [] Cardiovascular:Heart rate regular rhythm, no murmur [] Lungs & Thorax: Bilateral breath sounds clear to auscultation [] Abdomen: Bowel sounds normal, soft, no tenderness, no masses, no pulsatile mass es. [] Skin: Warm, dry, no erythema, no rash. [] Back: No tenderness, no CVA tenderness. [] Extremities: No tenderness, no cyanosis, no clubbing, ROM intact, no edema. [] Neurologic: Alert and oriented X 3, normal motor function, normal sensory function, no focal deficits noted. [] Psychologic: Flat affect. (VALERY STACK APRN) Current Patient Data: Vital Signs: Vital Signs Date Time Temp Pulse Resp B/P (MAP) Pulse Ox O2 Delivery O2 Flow Rate FiO2 05/10/20 17:03 98.1 83 18 104/74 (84) 98 Room Air 98.1 (VALERY STACK APRN) EKG: EKG: [] (VALERY STACK APRN) Radiology/Procedures: Radiology/Procedures: [] (VALERY STACK APRN) Course & Med Decision Making: Course & Med Decision Making Pertinent Labs and Imaging studies reviewed. (See chart for details) This is a 50-year-old female patient presenting to the ED today requesting clearance to go to [facility] for alcohol rehab. Patient was there at 2 PM today and states her alcohol level was too high she was sent to the Ed for clearance. CBC with no acute findings, drug screen positive for benzodiazepine, alcohol. Pending CMP and alcohol level [address] Michel Romero (VALERY STACK APRN) Course & Med Decision Making Assumed care from Valery Stack INFORMATION TECHNOLOGY ADMINISTRATOR at 1900. In summary, 50F with alcoholism sent for medical clearance as her alcohol level was too high when attempting to check into [facility] for rehab. EtOH level now 68. Remains well appearing and nontoxic. Medically cleared from my standpoint. Will be discharged. (MICHEL ROMERO DO) Dragon Disclaimer: Dragon Disclaimer: This electronic medical record was generated, in whole or in part, using a voice recognition dictation system. (VALERY STACK APRN) Departure Departure Impression: Primary Impression: Alcohol intoxication Disposition: 01 DC HOME SELF CARE/HOMELESS Condition: STABLE Referrals: NO PCP (PCP) Patient Instructions: Chronic Alcoholism VALERY STACK APRN May 10, 2020 17:54 MICHEL ROMERO DO May 10, 2020 20:33
[2020-05-10 18:16] LABS: BILIRUBIN,URINE NEGATIVE (NEG); CLARITY,URINE CLEAR; COLOR,URINE YELLOW; NITRITE,URINE NEGATIVE (NEG); PROTEIN,URINE NEGATIVE (NEG-TRACE); UROBILINOGEN,URINE 0.2 mg/dL (0.2 mg/dL)
[2020-05-10 18:20] LABS: BARBITURATES NEG (NEG); BENZODIAZEPINES POS (NEG); CANNABINOIDS NEG (NEG); COCAINE NEG (NEG); METHADONE NEG (NEG); OPIATES NEG (NEG); PHENCYCLIDINE NEG (NEG)
[2020-05-10 18:22] LABS: AMPHETAMINE/METHAMPHETAMINE NEG (NEG)
[2020-05-10 18:25] VITALS: BP 126/90
[2020-05-10 18:25] LABS: BASO % 1 % (0-3); EOS % 1 % (0-3); HEMATOCRIT 38.7 % (36.0-47.0); HEMOGLOBIN 13.1 g/dL (12.0-15.5); LYMPH # 2.8 x10^3/uL (1.0-4.8); LYMPH % 43 % (24-48); MEAN CORPUSCULAR HEMOGLOBIN 31 pg (25-35); MEAN CORPUSCULAR HGB CONC 34 g/dL (31-37); MEAN CORPUSCULAR VOLUME 93 fL (79-100); MONO # 0.5 x10^3/uL (0.0-1.1); MONO % 7 % (0-9); NEUT # 3.1 x10^3/uL (1.8-7.7); NEUT % 48 % (31-73); PLATELET COUNT 160 x10^3/uL (140-400); RED BLOOD COUNT 4.19 x10^6/uL (3.50-5.40); WHITE BLOOD COUNT 6.5 x10^3/uL (4.0-11.0)
[2020-05-10 18:38] LABS: BACTERIA,URINE MOD /HPF (0-FEW)
[2020-05-10 18:39] LABS: RBC,URINE 0 /HPF (0-2)
[2020-05-10 20:17] LABS: CALCIUM 8.4 mg/dL (8.5-10.1); CREATININE 0.7 mg/dL (0.6-1.0); GFR 88.2; POTASSIUM 3.7 mmol/L (3.5-5.1)
[2020-05-10 20:23] LABS: ACETAMIN < 2 mcg/ml (10-30); ALBUMIN 3.3 g/dL (3.4-5.0); ALBUMIN/GLOBULIN RATIO 0.9 (1.0-1.7); ETHANOL 68 mg/dL (0-10); SALIC < 2.8 mg/dL (2.8-20.0); TOTAL BILIRUBIN 0.2 mg/dL (0.2-1.0)
== END 2020-05-10 20:53 | disposition home or self-care (01) ==
LOC: ER 15:04
DX: F10.229 Alcohol dependence with intoxication, unspecified (principal); Y90.3 Blood alcohol level of 60-79 mg/100 ml; F17.200 Nicotine dependence, unspecified, uncomplicated
CPT/HCPCS: 36415; 80053; 80307; 80329; 81001; 85025; 96365; 96375; 99284; G0480; J2405; J3411; J3490; J7030; 99285-25